=== PATIENT | female | born 1945 | race Caucasian/White ===

== ENCOUNTER 2018-01-20 19:24 | Inpatient (IN) | payer MEDICARE ==
[~2018-01-20] VITALS: Ht 170.2 cm; Wt 112.6 kg
[2018-01-20 21:15] LABS: BASO # 0.1 x10^3/uL (0.0-0.2); BASO % 1 % (0-3); EOS # 0.2 x10^3/uL (0.0-0.7); EOS % 2 % (0-3); HEMATOCRIT 47.6 % (36.0-47.0); LYMPH # 1.7 x10^3/uL (1.0-4.8); LYMPH % 12 % (24-48); MEAN CORPUSCULAR HEMOGLOBIN 30 pg (25-35); MEAN CORPUSCULAR HGB CONC 34 g/dL (31-37); MEAN CORPUSCULAR VOLUME 90 fL (79-100); MONO # 0.6 x10^3/uL (0.0-1.1); MONO % 5 % (0-9); NEUT # 11.9 x10^3uL (1.8-7.7); NEUT % 82 % (31-73); PLATELET COUNT 192 x10^3/uL (140-400); RED BLOOD COUNT 5.32 x10^6/uL (3.50-5.40); RED CELL DISTRIBUTION WIDTH 17.2 % (11.5-14.5); WHITE BLOOD COUNT 14.5 x10^3/uL (4.0-11.0)
[2018-01-20 21:26] LABS: ALBUMIN 2.2 g/dL (3.4-5.0); ALBUMIN/GLOBULIN RATIO 0.4 (1.0-1.7); BILIRUBIN,URINE NEG (NEG); CALCIUM 8.7 mg/dL (8.5-10.1); CLARITY,URINE CLOUDY; COLOR,URINE YELLOW; GFR 24.5; GLUCOSE,URINE NEG (NEG); MAGNESIUM 1.7 mg/dL (1.8-2.4); NITRITE,URINE NEG (NEG); POTASSIUM 3.3 mmol/L (3.5-5.1); TOTAL BILIRUBIN 0.5 mg/dL (0.2-1.0); TOTAL PROTEIN 7.8 g/dL (6.4-8.2); UROBILINOGEN,URINE 0.2 mg/dL (0.2 mg/dL)
[2018-01-20 21:27] LABS: BACTERIA,URINE MOD /HPF (0-FEW); RBC,URINE OCC /HPF (0-2); SQUAMOUS EPITHELIAL CELL,UR OCC /LPF; WBC,URINE >40 /HPF (0-4)
[2018-01-20] MEDS: HALOPERIDOL LACT 5 MG/ML VIAL. IVP PRN (23:29)
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
--- NOTE | 2018-01-20 23:30 | NUR ---
The patient, NEPTALI HOLLY, 72 y/o, F admitted by ASHLEY NEWSOME MD, was given written information regarding hospital policies, unit procedures and contact persons. Valuables were checked and .
[2018-01-20] MEDS: IV NORMAL SALINE 1,000ML 1,000 ML IV SCH (23:39)
[2018-01-20 23:52] VITALS: BP 131/85
[2018-01-21] MEDS ORDERED: CHOL10003 PO (01:53)
[2018-01-21] MEDS ORDERED: DEXT15DR5 EACHEYE (01:53)
[2018-01-21] MEDS ORDERED: INSU100I11 SQ (01:53)
[2018-01-21] MEDS ORDERED: WARF2.5T83 PO (01:53)
[2018-01-21] MEDS ORDERED: SPIR25TA5 PO (01:53)
[2018-01-21] MEDS ORDERED: TORS100T3 PO (01:53)
[2018-01-21] MEDS ORDERED: LEVO100T5 PO (01:53)
[2018-01-21] MEDS ORDERED: SIMV40TA3 PO (01:53)
[2018-01-21] MEDS ORDERED: POTA20TA4 PO (01:53)
[2018-01-21] MEDS ORDERED: DILT240C2 PO (01:53)
[2018-01-21] MEDS ORDERED: QUET25TA5 PO (01:53)
[2018-01-21] MEDS ORDERED: ACET500T68 PO (01:53)
[2018-01-21] MEDS ORDERED: METO50TA4 PO (01:53)
[2018-01-21] MEDS ORDERED: NYST15PO9 TP (01:53)
[2018-01-21] MEDS ORDERED: INSU100I13 SQ (01:53)
--- NOTE | 2018-01-21 03:10 | ED.ADGEN ---
Past History Past Medical History: COPD, Dementia, Depression, Diabetes, Hypertension Past Surgical History: Hysterectomy, Knee Replacement Alcohol Use: None Drug Use: None Adult General Chief Complaint Chief Complaint Patient for transfer medical screening evaluation for psychiatric admission HPI HPI Patient is a 72-year-old female with history of dementia and diabetes who presents with complaints of agitation and paranoia and disruptive behavior at residential facility. Patient has been admitted accepted by the on-call psychiatrist but stops in the emergency department for medical screening evaluation. History is limited as the patient is pearly cooperative. Of note, the patient was recently minute to [facility] for treatment of lower extremity cellulitis and has a PICC line in place. It is unclear when the antibiotics were stopped. History is limited due to patient's poor cooperation[] Review of Systems Review of Systems All other systems were reviewed and found to be within normal limits, except as documented in this note. Current Medications Current Medications Current Medications Medications (Trade) Dose Ordered Sig/Kelley Start Time Stop Time Status Last Admin Dose Admin Levofloxacin/ Dextrose 150 ml @ 150 mls/hr 1X ONCE 01/20/18 21:45 01/20/18 22:44 DC 01/20/18 21:45 150 MLS/HR Allergies Allergies Allergies Coded Allergies Type Severity Reaction Last Updated Verified Sulfa (Sulfonamide Antibiotics) Allergy Unknown 01/20/18 Yes amoxicillin Allergy Unknown 01/20/18 Yes vancomycin Allergy Unknown 01/20/18 Yes Physical Exam Physical Exam Constitutional: Well developed, well nourished, no acute distress, non-toxic appearance. [] HENT: Normocephalic, atraumatic, bilateral external ears normal, oropharynx moist, no oral exudates, nose normal. [] Eyes: PERRLA, EOMI, conjunctiva normal, no discharge. [] Neck: Normal range of motion, no tenderness, supple, no stridor. [] Cardiovascular:Heart rate regular rhythm, no murmur [] Lungs & Thorax: Bilateral breath sounds clear to auscultation [] Abdomen: Bowel sounds normal, soft, no tenderness. [] Skin: Warm, dry, no erythema, no rash. [] Back: No tenderness. [] Extremities: Venous insufficiency of lower extremities, with erythema, no induration, streaking, or weeping. [] Neurologic: Alert and oriented X1, normal motor function, normal sensory function, no focal deficits noted. [] Psychologic: Affect normal, judgement normal, mood normal. [] Current Patient Data Vital Signs Vital Signs Date Time Temp Pulse Resp B/P (MAP) Pulse Ox O2 Delivery O2 Flow Rate FiO2 01/20/18 21:37 98 18 160/80 (106) 94 Room Air 01/20/18 19:49 98.4 Lab Results Laboratory Tests Test 01/20/18 20:38 White Blood Count 14.5 x10^3/uL (4.0-11.0) H Red Blood Count 5.32 x10^6/uL (3.50-5.40) Hemoglobin 16.0 g/dL (12.0-15.5) H Hematocrit 47.6 % (36.0-47.0) H Mean Corpuscular Volume 90 fL (79-100) Mean Corpuscular Hemoglobin 30 pg (25-35) Mean Corpuscular Hemoglobin Concent 34 g/dL (31-37) Red Cell Distribution Width 17.2 % (11.5-14.5) H Platelet Count 192 x10^3/uL (140-400) Neutrophils (%) (Auto) 82 % (31-73) H Lymphocytes (%) (Auto) 12 % (24-48) L Monocytes (%) (Auto) 5 % (0-9) Eosinophils (%) (Auto) 2 % (0-3) Basophils (%) (Auto) 1 % (0-3) Neutrophils # (Auto) 11.9 x10^3uL (1.8-7.7) H Lymphocytes # (Auto) 1.7 x10^3/uL (1.0-4.8) Monocytes # (Auto) 0.6 x10^3/uL (0.0-1.1) Eosinophils # (Auto) 0.2 x10^3/uL (0.0-0.7) Basophils # (Auto) 0.1 x10^3/uL (0.0-0.2) Prothrombin Time 10.7 SEC (9.4-11.4) Prothrombin Time INR 1.1 (0.9-1.1) Urine Collection Type U cath Urine Color Yellow Urine Clarity Cloudy Urine pH 5.5 Urine Specific [place] 1.015 Urine Protein 100 mg/dl (NEG-TRACE) Urine Glucose (UA) Neg mg/dL (NEG) Urine Ketones (Stick) Neg mg/dL (NEG) Urine Blood Small (NEG) Urine Nitrite Neg (NEG) Urine Bilirubin Neg (NEG) Urine Urobilinogen Dipstick 0.2 mg/dL (0.2 mg/dL) Urine Leukocyte Esterase Mod (NEG) Urine RBC Occ /HPF (0-2) Urine WBC >40 /HPF (0-4) Urine Squamous Epithelial Cells Occ /LPF Urine Bacteria Mod /HPF (0-FEW) Urine Mucus Mod /LPF Sodium Level 136 mmol/L (136-145) Potassium Level 3.3 mmol/L (3.5-5.1) L Chloride Level 98 mmol/L (98-107) Carbon Dioxide Level 32 mmol/L (21-32) Anion Gap 6 (6-14) Blood Urea Nitrogen 39 mg/dL (7-20) H Creatinine 2.0 mg/dL (0.6-1.0) H Estimated GFR (Cockcroft-Gault) 24.5 BUN/Creatinine Ratio 20 (6-20) Glucose Level 133 mg/dL (70-99) H Calcium Level 8.7 mg/dL (8.5-10.1) Magnesium Level 1.7 mg/dL (1.8-2.4) L Total Bilirubin 0.5 mg/dL (0.2-1.0) Aspartate Amino Transferase (AST) 36 U/L (15-37) Alanine Aminotransferase (ALT) 33 U/L (14-59) Alkaline Phosphatase 101 U/L (46-116) Total Protein 7.8 g/dL (6.4-8.2) Albumin 2.2 g/dL (3.4-5.0) L Albumin/Globulin Ratio 0.4 (1.0-1.7) L EKG EKG [] Radiology/Procedures Radiology/Procedures [] Course & Med Decision Making Course & Med Decision Making Pertinent Labs and Imaging studies reviewed. (See chart for details) [Elevated WBC t with UTI and possible recurrence of lower extremity cellulitis. Will admit to medicla floor.] Final Impression Final Impression [1. cellulitis of B lower extremities 2. UTI] Dragon Disclaimer Dragon Disclaimer This electronic medical record was generated, in whole or in part, using a voice recognition dictation system. IGOR STOCKTON DO Jan 21, 2018 03:10
[2018-01-21] MEDS: HALOPERIDOL LACT 5 MG/ML VIAL. IVP PRN ×2 (03:39→14:06)
[2018-01-21 05:20] VITALS: BP 149/80
[2018-01-21 06:39] LABS: CALCIUM 8.3 mg/dL (8.5-10.1); CREATININE 1.8 mg/dL (0.6-1.0); GFR 27.7; POTASSIUM 3.1 mmol/L (3.5-5.1)
[2018-01-21 06:41] LABS: BASO # 0.1 x10^3/uL (0.0-0.2); BASO % 1 % (0-3); EOS # 0.1 x10^3/uL (0.0-0.7); EOS % 1 % (0-3); HEMATOCRIT 42.7 % (36.0-47.0); HEMOGLOBIN 14.5 g/dL (12.0-15.5); LYMPH # 1.2 x10^3/uL (1.0-4.8); LYMPH % 10 % (24-48); MEAN CORPUSCULAR HEMOGLOBIN 30 pg (25-35); MEAN CORPUSCULAR HGB CONC 34 g/dL (31-37); MEAN CORPUSCULAR VOLUME 89 fL (79-100); MONO # 0.6 x10^3/uL (0.0-1.1); MONO % 4 % (0-9); NEUT # 10.7 x10^3uL (1.8-7.7); NEUT % 84 % (31-73); PLATELET COUNT 165 x10^3/uL (140-400); RED BLOOD COUNT 4.79 x10^6/uL (3.50-5.40); RED CELL DISTRIBUTION WIDTH 17.5 % (11.5-14.5); WHITE BLOOD COUNT 12.8 x10^3/uL (4.0-11.0)
[2018-01-21] MEDS: LACTOBACILLUS RHAMNOSUS GG 1 CAPSULE. PO SCH ×2 (09:03→21:52)
[2018-01-21] MEDS: IV NORMAL SALINE 1,000ML 1,000 ML IV SCH ×2 (09:42→21:52)
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
[2018-01-21 10:14] VITALS: BP 120/65
[2018-01-21] MEDS ORDERED: POTASSIUM CHLORIDE 20 MEQ TABLET.ER. PO ONE (14:30)
[2018-01-21 15:07] VITALS: BP 137/83
--- NOTE | 2018-01-21 15:32 | NUR ---
Pt asking about her wheelchair. RN given in report from shift supervisor film processing that wheelchair was still in ED. Nursing o and m supervisor last night stated she would pass it along to day shift nursing o and m supervisor. RN called ER asking if they could bring the patients wheelchair up. ER stated they did not see it but would look. RN called day shift nursing o and m supervisor and asked if she had seen or gotten the wheelchair, she had not but did call nurse dairy cattle farm manager Alisa and is waiting for Alisa to call back.
--- NOTE | 2018-01-21 18:34 | SSS ---
ADMIT DATE: 01/21/2018 HISTORY OF PRESENT ILLNESS: The patient is a 72-year-old female patient, resident at [facility] who was seen in the Emergency Room as she has severe mood swings. She was cursing, yelling, very disruptive, threatening to kill multiple nurses, aggressive at times, especially resistive to care. She apparently was treated with Haldol and Seroquel without much improvement and was seen and evaluated in the Emergency Room with a plan for her to [facility]. However, there was some confusion as to whether she had a PICC line and there was confusion whether she was receiving treatment for cellulitis. I actually spoke with the nursing staff at [facility] and apparently she is known to have atrial fibrillation and she was on Lovenox as a bridge and the PICC line was used to draw blood daily for PT/INR. Actually, she is on Levaquin for urinary tract infection. When I questioned her, she denied any complaints and said that she feeling fine for her age. PAST MEDICAL HISTORY: Significant for atrial fibrillation, hyperlipidemia, hypertension, congestive heart failure, chronic kidney disease as well as type 2 diabetes and hypothyroidism. PAST SURGICAL HISTORY: Significant for left total knee arthroplasty. ALLERGIES: She is allergic to VANCOMYCIN, AMPICILLIN, AMOXICILLIN, AND SULFA DRUGS. MEDICATIONS: She is currently on following medications: She is on Coumadin 2.5 mg daily, simvastatin 40 mg at bedtime, metoprolol succinate 50 mg once a day. She is on diltiazem hydrochloride 240 mg daily, spironolactone 25 mg daily, Tylenol 1000 mg every 8 hours as needed, quetiapine fumarate 25 mg 3 times a day, potassium chloride 20 mEq daily, torsemide 50 mg daily, artificial tears 1 drop to both eyes twice a day. She is on Lantus insulin 23 units subcutaneously daily. She is also on Humalog insulin 3 units before meals, levothyroxine sodium 100 mcg daily, Nystatin powder topically 3 times a day to both areas under the breast, cholecalciferol 2000 units p.o. b.i.d. FAMILY HISTORY: Unremarkable. SOCIAL HISTORY: She is a resident at [facility]. She does not smoke, drink alcohol or use any recreational drugs. REVIEW OF SYSTEMS: As per history of present illness. PHYSICAL EXAMINATION GENERAL: When I examined her, she was sitting comfortably in her chair in no apparent respiratory distress. She seemed to be somewhat plethoric, but there is no jaundice, cyanosis, or thyromegaly. No jugular venous distension. No limb edema. VITAL SIGNS: Her heart rate was 107, blood pressure 120/65, temperature was 98.1, respiratory rate 20, and oxygen saturation was 92% on 2 liters of oxygen. HEAD, EYES, EAR, NOSE AND THROAT: Showed normocephalic, atraumatic. NECK: Supple. HEART: Showed normal first and second heart sounds with no gallop, rub or murmur. CHEST: Clear to auscultation. No crepitation or rhonchi. ABDOMEN: Distended, soft, nontender. No guarding or rigidity. No organomegaly. All hernial orifice intact. Bowel sounds normal. NEUROLOGIC: She was awake, alert, responding at times appropriately. Her cranial nerves are intact. She moves extremities without difficulty, although she is mostly with bedbound, chair bound. EXTREMITIES: Examination of her lower extremities showed that there is no clubbing or cyanosis with marked bilateral lower extremity lymphedema and chronic venous hypertension. LABORATORY DATA: On arrival to the Emergency Room, her CBC showed a white cell count of 14,500, hemoglobin 16, hematocrit 47, MCV 90 and platelet count of 192,000. Her prothrombin time was subtherapeutic with prothrombin time was 10.7, INR 1.1. Her chemistry showed a serum sodium 136, potassium 3.3, chloride 98, bicarbonate 32, anion gap of 6, BUN 39, creatinine 2, estimated GFR was 24 mL per minute. Her glucose was 133, calcium was 8.7, magnesium 1.7. Total bilirubin, AST, ALT, alkaline phosphatase were normal. Her total protein was 7.8, albumin was 2.2. Her TSH was 23.5. Her urinalysis showed the urine was yellow, cloudy with a pH of 5.5, specific gravity of 1.015. There was a small amount of protein, negative for glucose, ketones, small amount of blood. The urine was negative for nitrites, bilirubin, moderate amount of leukocyte esterase, more than 40 wbc's, moderate amount of bacteria. As the patient is hemodynamically stable. PLAN: My plan is to continue with her Lovenox 120 mg. I will increase her Coumadin to 5 mg. The patient will be transferred upstairs to [facility] to continue with these changes, I will obviously follow her there. FINAL DISCHARGE DIAGNOSES: Urinary tract infection for which she is on Levaquin. We will continue change that over to be given orally 750 mg every 48 hours. Continue with Lovenox 120 mg subcutaneous daily. I will increase Coumadin to 5 mg daily for the next 3 days and check her prothrombin time and INR on Wednesday morning. ASHLEY NEWSOME MD DR: MUNIR/janeth JOB#: [id number] / [id number]
--- NOTE | 2018-01-21 18:43 | PDOC ---
Exam Note: Diomedes Note: Please also refer to the separate dictated note~for this date of service dictated separately.~Patient seen individually. Discussed the patient with Nursing staff reviewed the chart.~Reviewed interim history and current functioning. Reviewed vital signs,~Labs/ Radiology~and current medications noted below. Continue current treatment with the changes noted in the dictated addendum note Assessment: Vital Signs: Vital Signs Date Time Temp Pulse Resp B/P (MAP) Pulse Ox O2 Delivery O2 Flow Rate FiO2 01/21/18 15:07 97.7 101 20 137/83 (101) 96 Room Air 01/21/18 10:14 2.0 I&O Intake and Output 01/21/18 07:00 Intake Total 400 ml Balance 400 ml Intake Oral 400 ml # Voids 4 Labs: Laboratory Tests Test 01/20/18 20:38 01/21/18 06:10 01/21/18 07:17 01/21/18 11:18 White Blood Count 14.5 x10^3/uL (4.0-11.0) H 12.8 x10^3/uL (4.0-11.0) H Red Blood Count 5.32 x10^6/uL (3.50-5.40) 4.79 x10^6/uL (3.50-5.40) Hemoglobin 16.0 g/dL (12.0-15.5) H 14.5 g/dL (12.0-15.5) Hematocrit 47.6 % (36.0-47.0) H 42.7 % (36.0-47.0) Mean Corpuscular Volume 90 fL (79-100) 89 fL (79-100) Mean Corpuscular Hemoglobin 30 pg (25-35) 30 pg (25-35) Mean Corpuscular Hemoglobin Concent 34 g/dL (31-37) 34 g/dL (31-37) Red Cell Distribution Width 17.2 % (11.5-14.5) H 17.5 % (11.5-14.5) H Platelet Count 192 x10^3/uL (140-400) 165 x10^3/uL (140-400) Neutrophils (%) (Auto) 82 % (31-73) H 84 % (31-73) H Lymphocytes (%) (Auto) 12 % (24-48) L 10 % (24-48) L Monocytes (%) (Auto) 5 % (0-9) 4 % (0-9) Eosinophils (%) (Auto) 2 % (0-3) 1 % (0-3) Basophils (%) (Auto) 1 % (0-3) 1 % (0-3) Neutrophils # (Auto) 11.9 x10^3uL (1.8-7.7) H 10.7 x10^3uL (1.8-7.7) H Lymphocytes # (Auto) 1.7 x10^3/uL (1.0-4.8) 1.2 x10^3/uL (1.0-4.8) Monocytes # (Auto) 0.6 x10^3/uL (0.0-1.1) 0.6 x10^3/uL (0.0-1.1) Eosinophils # (Auto) 0.2 x10^3/uL (0.0-0.7) 0.1 x10^3/uL (0.0-0.7) Basophils # (Auto) 0.1 x10^3/uL (0.0-0.2) 0.1 x10^3/uL (0.0-0.2) Prothrombin Time 10.7 SEC (9.4-11.4) Prothrombin Time INR 1.1 (0.9-1.1) Urine Collection Type U cath Urine Color Yellow Urine Clarity Cloudy Urine pH 5.5 Urine Specific [place] 1.015 Urine Protein 100 mg/dl (NEG-TRACE) Urine Glucose (UA) Neg mg/dL (NEG) Urine Ketones (Stick) Neg mg/dL (NEG) Urine Blood Small (NEG) Urine Nitrite Neg (NEG) Urine Bilirubin Neg (NEG) Urine Urobilinogen Dipstick 0.2 mg/dL (0.2 mg/dL) Urine Leukocyte Esterase Mod (NEG) Urine RBC Occ /HPF (0-2) Urine WBC >40 /HPF (0-4) Urine Squamous Epithelial Cells Occ /LPF Urine Bacteria Mod /HPF (0-FEW) Urine Mucus Mod /LPF Sodium Level 136 mmol/L (136-145) 138 mmol/L (136-145) Potassium Level 3.3 mmol/L (3.5-5.1) L 3.1 mmol/L (3.5-5.1) L Chloride Level 98 mmol/L (98-107) 101 mmol/L (98-107) Carbon Dioxide Level 32 mmol/L (21-32) 32 mmol/L (21-32) Anion Gap 6 (6-14) 5 (6-14) L Blood Urea Nitrogen 39 mg/dL (7-20) H 33 mg/dL (7-20) H Creatinine 2.0 mg/dL (0.6-1.0) H 1.8 mg/dL (0.6-1.0) H Estimated GFR (Cockcroft-Gault) 24.5 27.7 BUN/Creatinine Ratio 20 (6-20) Glucose Level 133 mg/dL (70-99) H 127 mg/dL (70-99) H Calcium Level 8.7 mg/dL (8.5-10.1) 8.3 mg/dL (8.5-10.1) L Magnesium Level 1.7 mg/dL (1.8-2.4) L Total Bilirubin 0.5 mg/dL (0.2-1.0) Aspartate Amino Transferase (AST) 36 U/L (15-37) Alanine Aminotransferase (ALT) 33 U/L (14-59) Alkaline Phosphatase 101 U/L (46-116) Total Protein 7.8 g/dL (6.4-8.2) Albumin 2.2 g/dL (3.4-5.0) L Albumin/Globulin Ratio 0.4 (1.0-1.7) L Thyroid Stimulating Hormone (TSH) 23.499 uIU/mL (0.358-3.740) Glucose (Fingerstick) 138 mg/dL (70-99) H 150 mg/dL (70-99) H Test 01/21/18 16:23 Glucose (Fingerstick) 125 mg/dL (70-99) H Current Medications: Meds: Current Medications Levofloxacin/ Dextrose 150 ml @ 150 mls/hr 1X ONCE IV Last administered on at 21:45; Start 01/20/18 at 21:45; Stop 01/20/18 at 22:44; Status DC Haloperidol Lactate (Haldol) 5 mg PRN Q4HRS PRN IVP AGITATION Last administered on 01/21/18at 14:06; Start 01/20/18 at 23:30 Sodium Chloride 1,000 ml @ 100 mls/hr Q10H IV Last administered on 01/21/18at 09:42; Start 01/20/18 at 23:30 Levofloxacin/ Dextrose 150 ml @ 150 mls/hr Q48H IV ; Start 01/22/18 at 22:00 Lactobacillus Rhamnosus (Culturelle) 1 cap BID PO Last administered on at 09:03; Start 01/21/18 at 09:00 Potassium Chloride (Klor-Con) 40 meq 1X ONCE PO Last administered on at 14:43; Start 01/21/18 at 14:30; Stop 01/21/18 at 14:31; Status DC Guaifenesin (Mucinex Er) 600 mg BID PO ; Start 01/21/18 at 21:00 Active Scripts Active Reported Coumadin (Warfarin Sodium) 2.5 Mg Tablet 2.5 Mg PO DAILY Vitamin D3 (Cholecalciferol (Vitamin D3)) 1,000 Unit Tablet 2,000 Unit PO BID Torsemide 100 Mg Tablet 0.5 Tab PO DAILY Spironolactone 25 Mg Tablet 25 Mg PO DAILY Simvastatin 40 Mg Tablet 40 Mg PO HS Seroquel (Quetiapine Fumarate) 25 Mg Tablet 25 Mg PO PRN TID PRN Klor-Con M20 (Potassium Chloride) 20 Meq Tab.er.prt 20 Meq PO DAILY Nystatin 15 Gm Powder 1 Manjeet TP TID APPLY UNDER EACH BREAST Toprol Xl (Metoprolol Succinate) 50 Mg Tab.er.24h 50 Mg PO DAILY Levothyroxine Sodium 100 Mcg Tablet 100 Mcg PO DAILYAC Lantus Solostar (Insulin Glargine,Hum.rec.anlog) 100 Unit/1 Ml Insuln.pen 23 Unit SQ DAILY Humalog (Insulin Lispro) 100 Unit/1 Ml Insuln.pen 3 Unit SQ TIDAC Cardizem Cd (Diltiazem Hcl) 240 Mg Cap.er.24h 240 Mg PO DAILY Artificial Tears Eye Drops (Dextran 70/Hypromellose) 15 Ml Drops 1 Drop EACHEYE BID Acetaminophen 500 Mg Tablet 1,000 Mg PO PRN Q8HRS PRN I have reviewed the current psychotropics carefully including drug interactions. Risk benefit ratio favors no change other than as noted in my dictated progress note. Diagnosis: Problems: (1) Psychotic depression (2) Impulse control disorder (3) Major depressive disorder, recurrent episode (4) Anxiety disorder (5) Urinary tract bacterial infections (6) Cellulitis of both lower extremities (7) Acute kidney failure JAZMINE KILLIAN MD Jan 21, 2018 18:43
[2018-01-21 19:00] VITALS: BP 126/82
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
[2018-01-21 23:00] VITALS: BP 144/83
[2018-01-22] MEDS: HALOPERIDOL LACT 5 MG/ML VIAL. IVP PRN (00:14)
[2018-01-22 05:49] VITALS: BP 133/78
[2018-01-22 11:11] VITALS: BP 156/80
[2018-01-22] MEDS: LACTOBACILLUS RHAMNOSUS GG 1 CAPSULE. PO SCH (12:32)
--- NOTE | 2018-01-22 12:57 | NUR ---
Pt is discharged up to [facility], PICC line in place, belongings with pt. Pt is apprehensive about transferring, states she doesn't know where she is going. GREEN MARKETING ANALYST at pt's side with transfer.
[2018-01-22] MEDS ORDERED: LEVO750T31 PO (15:28)
[2018-01-22] MEDS ORDERED: LACT1CAP21 PO (15:28)
[2018-01-22] MEDS ORDERED: ENOX120D SQ (15:28)
== END 2018-01-22 12:58 | DRG 871 ==
LOC: ER 19:24 → 1 SOUTH 22:00
PROVIDERS: ADMIT Internal Medicine; ATTEND Internal Medicine
DX: A41.9 Sepsis, unspecified organism (principal); E43 Unspecified severe protein-calorie malnutrition; N39.0 Urinary tract infection, site not specified; F33.9 Major depressive disorder, recurrent, unspecified; I13.0 Hypertensive heart and chronic kidney disease with heart failure and stage 1 through stage 4 chronic kidney disease, or unspecified chronic kidney disease; L03.116 Cellulitis of left lower limb; L03.115 Cellulitis of right lower limb; N17.9 Acute kidney failure, unspecified; E11.22 Type 2 diabetes mellitus with diabetic chronic kidney disease; E03.9 Hypothyroidism, unspecified; E78.5 Hyperlipidemia, unspecified; F03.90 Unspecified dementia, unspecified severity, without behavioral disturbance, psychotic disturbance, mood disturbance, and anxiety; F41.9 Anxiety disorder, unspecified; F63.9 Impulse disorder, unspecified; I50.9 Heart failure, unspecified; I48.91 Unspecified atrial fibrillation; J44.9 Chronic obstructive pulmonary disease, unspecified; N18.9 Chronic kidney disease, unspecified; Z96.652 Presence of left artificial knee joint; Z79.899 Other long term (current) drug therapy; Z90.710 Acquired absence of both cervix and uterus; Z88.1 Allergy status to other antibiotic agents; Z88.2 Allergy status to sulfonamides
CPT/HCPCS: 36415; 80048; 80053; 81001; 82947; 83735; 84443; 85025; 85610; 87086; 87186; 87641; J1630; J1956; 99285-25; J7030

== ENCOUNTER 2018-01-22 13:04 | Inpatient (IN) | payer MEDICARE ==
[~2018-01-22 13:04] MED LIST: ACET500T68 PO; CHOL10003 PO; DEXT15DR5 EACHEYE; DILT240C2 PO; INSU100I11 SQ; INSU100I13 SQ; LEVO100T5 PO; METO50TA4 PO; NYST15PO9 TP; POTA20TA4 PO; QUET25TA5 PO; SIMV40TA3 PO; SPIR25TA5 PO; TORS100T3 PO; WARF2.5T83 PO
[2018-01-22 13:30] VITALS: BP 132/77
[2018-01-22] MEDS ORDERED: MAGNESIUM HYDROXIDE 2,400 MG/30 ML ORAL.SUSP. PO PRN (15:00)
[2018-01-22] MEDS ORDERED: MAG HYDROX/AL HYDROX/SIMETH 30 ML ORAL.SUSP PO PRN (15:00)
[2018-01-22] MEDS ORDERED: ACETAMINOPHEN 325 MG TABLET PO PRN (15:00)
[2018-01-22] MEDS ORDERED: METHYL SALICYLATE/MENTHOL TOPICAL OINTMENT 29GM TUBE. TP PRN (15:00)
[2018-01-22] MEDS ORDERED: ENOX120D SQ (15:28)
[2018-01-22] MEDS ORDERED: LACT1CAP21 PO (15:28)
[2018-01-22] MEDS ORDERED: LEVO750T31 PO (15:28)
[2018-01-22] MEDS ORDERED: levoFLOXacin 750 MG TABLET PO SCH (15:45)
[2018-01-22] MEDS ORDERED: ACETAMINOPHEN 500 MG TABLET PO PRN (15:45)
[2018-01-22] MEDS ORDERED: QUEtiapine 25 MG TABLET. PO PRN (15:45)
[2018-01-22] MEDS ORDERED: WARFARIN 5 MG TABLET. PO SCH (16:00)
[2018-01-22 16:30] VITALS: BP 130/74
[2018-01-22] MEDS: INSULIN LISPRO 300 UNITS/3 ML INSULN.PEN. SQ SCH (17:26)
--- NOTE | 2018-01-22 18:55 | HP ---
ADMIT DATE: 01/22/2018 PSYCHIATRIC ADMISSION HISTORY/EVALUATION This note covers elements not covered in my initial note 01/22/2018. IDENTIFYING DATA: The patient is a 72-year-old female referred to us room 125, [address] [place] [address] Maya after she was stabilized overnight; referred initially from [facility] for threatening to kill herself and homicidal statements towards the other residents and staff members. The patient presented to the ER, found to have UTI, cellulitis, admitted to [address] [place] [address]. While in [address] [place] [address], she was extremely paranoid, delusional, believes she has been kidnapped, trying to rip out her PICC line and thus referred for inpatient psychiatric stabilization. CHIEF COMPLAINT: "I just say those things." HISTORY OF PRESENT ILLNESS: The patient reportedly had been living at home with her son and about 3 weeks back, he was unable to manage her because of her physical needs and she was admitted to [facility]. She has been extremely angry, irritable, depressed, and impulsive. She has had suicidal thoughts and statements and homicidal ideation statements towards the staff members and other patients/residence. No clear history of bipolar disorder. She does have some short-term memory deficits. PAST PSYCHIATRIC HISTORY: As above. PAST MEDICAL HISTORY: Diabetes mellitus, weakness, impaired ambulation in wheelchair, cellulitis, UTI, sepsis, acute kidney injury, PVD, atrial fibrillation, hypertension, bariatrics, hypothyroidism, CHF, hyperlipidemia, COPD, osteoarthritis, Accu-Cheks a.c. and at bedtime. PAST SURGICAL HISTORY: Hysterectomy, , bariatric surgery, left knee replacement. DIET: Regular. Medications whole. ALLERGIES: VANCOMYCIN, AMOXIL, SULFA. CODE STATUS: FULL CODE. CURRENT PSYCHOTROPICS: She is on p.r.n. Seroquel. FAMILY HISTORY: Noncontributory. SOCIAL HISTORY: No history of alcohol, drug abuse, physical, sexual or elder abuse. She is not known to be a perpetrator. REACTION TO HOSPITALIZATION: The patient accepting of it. ASSETS: Supportive son and stable living at the shelter. MENTAL STATUS EXAM: The patient was seen individually on the evening of 01/22/2018. She is oriented to herself, situation, aware of the year, who the president is and when she came here. She does have some short-term memory deficits. Attention span short. Language function intact. Mood is somewhat dysphoric, anxious. Denies active suicidal or homicidal ideation. Attention span short. Language function intact. LABORATORY DATA: Reviewed. IMPRESSION: Major depressive disorder, recurrent; anxiety disorder, unspecified; impulse control disorder, unspecified; mild cognitive impairment. Rest as above including urinary tract infection, cellulitis. PLAN: Admit to Geropsychiatry Unit at [facility]. I will see the patient daily individually from a psychiatric standpoint. Request Dr. Maya/Dr. Atkins to follow the patient from medical standpoint. For now, continue all her p.r.n. Seroquel, start Zoloft 25 mg a day. We will make further adjustments as clinically indicated. ESTIMATED LENGTH OF STAY: 7-10 days. DISPOSITION: Back to shelter once stable. MAN Otis KILLIAN MD DR: LYDIA/janeth JOB#: [id number] / [id number]
[2018-01-22] MEDS: ATORVASTATIN CALCIUM 20 MG TABLET PO SCH (20:25)
[2018-01-22] MEDS: CHOLECALCIFEROL (VITAMIN D3) 1,000 UNIT TABLET PO SCH (20:26)
[2018-01-22] MEDS: NYSTATIN TOPICAL POWDER 15GM BOTTLE. TP SCH (20:26)
[2018-01-22] MEDS: LACTOBACILLUS RHAMNOSUS GG 1 CAPSULE. PO SCH (20:26)
[2018-01-22] MEDS: POLYVINYL ALCOHOL 1.4% OPHTH SOLUTION 15ML BOTTLE. OU SCH (20:26)
--- NOTE | 2018-01-22 23:03 | PDOC ---
Exam Note: Diomedes Note: Please also refer to the separate dictated note~for this date of service dictated separately.~Patient seen individually. Discussed the patient with Nursing staff reviewed the chart.~Reviewed interim history and current functioning. Reviewed vital signs,~Labs/ Radiology~and current medications noted below. Continue current treatment with the changes noted in the dictated addendum note Assessment: Vital Signs: Vital Signs Date Time Temp Pulse Resp B/P (MAP) Pulse Ox O2 Delivery O2 Flow Rate FiO2 01/22/18 16:30 97.3 97 18 130/74 (92) 95 Labs: Laboratory Tests Test 01/22/18 17:15 01/22/18 19:11 Glucose (Fingerstick) 116 mg/dL (70-99) H 160 mg/dL (70-99) H Current Medications: Meds: Current Medications Acetaminophen (Tylenol) 650 mg PRN Q6HRS PRN PO PAIN / TEMP; Start 01/22/18 at 15:00 Multi-Ingredient Ointment (Analgesic [place]) 1 manjeet PRN QID PRN TP MUSCLE PAIN; Start 01/22/18 at 15:00 Al Hydroxide/Mg Hydroxide (Mylanta Plus Xs) 15 ml PRN AFTMEALHC PRN PO DYSPEPSIA; Start 01/22/18 at 15:00 Magnesium Hydroxide (Milk Of Magnesia) 2,400 mg PRN QHS PRN PO CONSTIPATION; Start 01/22/18 at 15:00 Nicotine (Nicoderm Cq 21mg) 1 patch DAILY TD ; Start 01/23/18 at 09:00 Vitamin D (Vitamin D3) 2,000 unit BID PO Last administered on 01/22/18at 20:26; Start 01/22/18 at 21:00 Diltiazem HCl (Cardizem 24hr Cd) 240 mg DAILY PO ; Start 01/23/18 at 09:00 Insulin Glargine (Lantus) 23 units DAILY SQ ; Start 01/23/18 at 09:00 Insulin Human Lispro (HumaLOG) 3 units TIDAC SQ Last administered on 01/22/18at 17:26; Start 01/22/18 at 16:30 Nystatin (Nystop) 1 manjeet TID TP Last administered on 01/22/18at 20:26; Start at 21:00 Potassium Chloride (Klor-Con) 20 meq DAILY PO ; Start 01/23/18 at 09:00 Atorvastatin Calcium (Lipitor) 20 mg QHS PO Last administered on 01/22/18at 20: 25; Start 01/22/18 at 21:00 Warfarin Sodium (Coumadin) 5 mg DAILY16 PO Last administered on 01/22/18at 17:23 ; Start 01/22/18 at 16:00 Acetaminophen (Tylenol) 1,000 mg PRN Q8HRS PRN PO PAIN / TEMP; Start 01/22/18 at 15:45 Artificial Tears (Artificial Tears) 1 drop BID OU ; Start 01/22/18 at 21:00 Enoxaparin Sodium (Lovenox 40mg Syringe) 40 mg DAILY SQ ; Start 01/23/18 at 09: 00 Lactobacillus Rhamnosus (Culturelle) 1 cap BID PO Last administered on at 20:26; Start 01/22/18 at 21:00 Levofloxacin (Levaquin) 750 mg QODAY PO Last administered on 01/22/18at 17:23; Start 01/22/18 at 15:45 Metoprolol Succinate (Toprol Xl) 50 mg DAILY PO ; Start 01/23/18 at 09:00 Spironolactone (Aldactone) 25 mg DAILY PO ; Start 01/23/18 at 09:00 Torsemide (Demadex) 50 mg DAILY PO ; Start 01/23/18 at 09:00 Levothyroxine Sodium (Synthroid) 100 mcg DAILY06 PO ; Start 01/23/18 at 06:00 Quetiapine Fumarate (SEROquel) 25 mg PRN TID PRN PO AGITATION; Start 01/22/18 at 15:45 Sertraline HCl (Zoloft) 25 mg DAILY PO ; Start 01/23/18 at 09:00 Active Scripts Active Reported Levaquin (Levofloxacin) 750 Mg Tablet 1 Tab PO EVERY 48 HOURS 4 Days Lovenox (Enoxaparin Sodium) 120 Mg/0.8 Ml Disp.syrin 120 Mg SQ DAILY Culturelle (Lactobacillus Rhamnosus Gg) 1 Each Capsule 1 Each PO BID Coumadin (Warfarin Sodium) 2.5 Mg Tablet 5 Mg PO DAILY Vitamin D3 (Cholecalciferol (Vitamin D3)) 1,000 Unit Tablet 2,000 Unit PO BID Torsemide 100 Mg Tablet 0.5 Tab PO DAILY Spironolactone 25 Mg Tablet 25 Mg PO DAILY Simvastatin 40 Mg Tablet 40 Mg PO HS Seroquel (Quetiapine Fumarate) 25 Mg Tablet 25 Mg PO PRN TID PRN Klor-Con M20 (Potassium Chloride) 20 Meq Tab.er.prt 20 Meq PO DAILY Nystatin 15 Gm Powder 1 Manjeet TP TID APPLY UNDER EACH BREAST Toprol Xl (Metoprolol Succinate) 50 Mg Tab.er.24h 50 Mg PO DAILY Levothyroxine Sodium 100 Mcg Tablet 100 Mcg PO DAILY06 Lantus Solostar (Insulin Glargine,Hum.rec.anlog) 100 Unit/1 Ml Insuln.pen 23 Unit SQ DAILY Humalog (Insulin Lispro) 100 Unit/1 Ml Insuln.pen 3 Unit SQ TIDAC Cardizem Cd (Diltiazem Hcl) 240 Mg Cap.er.24h 240 Mg PO DAILY Artificial Tears Eye Drops (Dextran 70/Hypromellose) 15 Ml Drops 1 Drop EACHEYE BID Acetaminophen 500 Mg Tablet 1,000 Mg PO PRN Q8HRS PRN I have reviewed the current psychotropics carefully including drug interactions. Risk benefit ratio favors no change other than as noted in my dictated progress note. Diagnosis: Problems: (1) Atrial fibrillation (2) Anxiety disorder (3) Major depressive disorder, recurrent episode (4) Impulse control disorder (5) Psychotic depression JAZMINE KILLIAN MD Jan 22, 2018 23:03
--- NOTE | 2018-01-23 02:08 | CONS ---
DATE OF CONSULTATION: 01/22/2018 PSYCHIATRIC CONSULTATION This is late entry 01/21, covers elements not covered in my initial note. IDENTIFYING DATA: The patient is a 72-year-old female who is seen in room [facility], for a psychiatric consult requested by Dr. Maya after the patient was admitted from the [facility], making suicidal statements and threats to hurt others than the [facility]. She presented to the ER, was found to have cellulitis and the UTI and admitted to [address] [place] [address]. I have been asked to consult from a psychiatric standpoint and she continues to be extremely labile, paranoid. The patient has been calling multitude of friends telling them, she has been taken hostage. She has been calling her son telling him the same and son is her DPOA, who arranged the initial hospitalization. She has been trying to pull out her PICC line. CHIEF COMPLAINT: "I just said those things. I would not do anything." HISTORY OF PRESENT ILLNESS: Reportedly, the patient has been at the [facility], just for a few weeks. Prior to that, she was living at home with her son. Over the last several days, she is increasingly psychotic, paranoid, agitated, threatening to hurt herself and expressing homicidal ideation. She was consequently referred for the inpatient psychiatric stabilization and then to [address] [place] [address]. No clear history of bipolar disorder. She does admit to being increasingly depressed as well, but some short-term memory deficits. PAST PSYCHIATRIC HISTORY: As above. MEDICAL HISTORY: Cellulitis, diabetes mellitus, hypertension, COPD. PAST SURGICAL HISTORY: Hysterectomy, knee replacement. No alcohol or drug abuse history. ALLERGIES: SULFA, AMOXIL, VANCOMYCIN. CURRENT PSYCHOTROPICS: EMRAD was reviewed. FAMILY HISTORY: Noncontributory. SOCIAL HISTORY: No alcohol or drug abuse history is noted. MENTAL STATUS EXAMINATION: The patient was seen individually evening of 01/21/2018. She was oriented to herself, situation and the time and date, though she was confused on the year at one time, when I questioned her. Speech is coherent, somewhat rapid at times. Abstraction fair, computation impaired, language function intact. Attention span short. No active suicidal or homicidal ideation. IMPRESSION: Major depressive disorder; impulse control disorder; anxiety disorder, unspecified; mild cognitive impairment. Rest as above. RECOMMENDATION FROM A PSYCHIATRIC STANDPOINT: We would not recommend anything differently at this time. Once she is medically stabilized, we will reassess her for coming [facility] if she still meets criteria. Dr. Maya, thank you for the opportunity to participate in your patient's care. We will follow with you. JAZMINE KILLIAN MD DR: LYDIA/janeth JOB#: [id number] / [id number]
[2018-01-23] MEDS ORDERED: LEVOTHYROXINE 100 MCG TABLET PO SCH (06:00)
[2018-01-23 06:24] VITALS: BP 159/89
--- NOTE | 2018-01-23 08:10 | RAD ---
AP and lateral chest. HISTORY: Short of air, weakness, cough AP and lateral views were taken of the chest. There is a left arm PICC line which is in the proximal superior vena cava. The heart is mildly enlarged. There is no definite effusion. There is interstitial lung disease from vascular congestion and edema or an interstitial infiltrate. Correlation with post an old study could be of benefit. IMPRESSION: 1. Mild cardiac enlargement with vascular congestion and mild interstitial infiltrates or edema. Electronically signed by: Kedar Olvera MD (01/23/2018 8:06 AM) [facility]
[2018-01-23] MEDS: CHOLECALCIFEROL (VITAMIN D3) 1,000 UNIT TABLET PO SCH ×2 (08:12→20:18)
[2018-01-23] MEDS: LACTOBACILLUS RHAMNOSUS GG 1 CAPSULE. PO SCH ×2 (08:12→20:18)
[2018-01-23] MEDS: NICOTINE 21MG PATCH. TD SCH ×2 (08:13→09:00)
[2018-01-23] MEDS ORDERED: METOPROLOL SUCC 24HR ER 50 MG TAB.ER.24H. PO SCH (09:00)
[2018-01-23] MEDS: POLYVINYL ALCOHOL 1.4% OPHTH SOLUTION 15ML BOTTLE. OU SCH ×2 (09:00→20:19)
[2018-01-23] MEDS ORDERED: POTASSIUM CHLORIDE 20 MEQ TABLET.ER. PO SCH (09:00)
[2018-01-23] MEDS ORDERED: INSULIN GLARGINE 300 UNITS/3 ML INSULN.PEN. SQ SCH (09:00)
[2018-01-23] MEDS ORDERED: TORSEMIDE 20 MG TABLET. PO SCH (09:00)
[2018-01-23] MEDS ORDERED: ENOXAPARIN 40 MG/0.4 ML SYRINGE. SQ SCH (09:00)
[2018-01-23] MEDS ORDERED: SPIRONOLACTONE 25 MG TABLET PO SCH (09:00)
[2018-01-23] MEDS ORDERED: SERTRALINE 25 MG TABLET. PO SCH (09:00)
[2018-01-23] MEDS: INSULIN LISPRO 300 UNITS/3 ML INSULN.PEN. SQ SCH ×3 (09:26→18:37)
[2018-01-23] MEDS: NYSTATIN TOPICAL POWDER 15GM BOTTLE. TP SCH ×3 (09:27→21:40)
[2018-01-23] MEDS ORDERED: ALTEPLASE 2 MG VIAL INT CAT ONE ×3 (12:15)
[2018-01-23 12:33] LABS: BASO # 0.1 x10^3/uL (0.0-0.2); BASO % 1 % (0-3); EOS # 0.3 x10^3/uL (0.0-0.7); EOS % 3 % (0-3); HEMATOCRIT 48.4 % (36.0-47.0); LYMPH # 1.3 x10^3/uL (1.0-4.8); LYMPH % 10 % (24-48); MEAN CORPUSCULAR HEMOGLOBIN 30 pg (25-35); MEAN CORPUSCULAR HGB CONC 33 g/dL (31-37); MEAN CORPUSCULAR VOLUME 91 fL (79-100); MONO # 0.5 x10^3/uL (0.0-1.1); MONO % 4 % (0-9); NEUT % 82 % (31-73); PLATELET COUNT 199 x10^3/uL (140-400); RED CELL DISTRIBUTION WIDTH 18.3 % (11.5-14.5); WHITE BLOOD COUNT 12.2 x10^3/uL (4.0-11.0)
[2018-01-23 12:44] LABS: ALBUMIN 2.3 g/dL (3.4-5.0); ALBUMIN/GLOBULIN RATIO 0.4 (1.0-1.7); CALCIUM 8.7 mg/dL (8.5-10.1); CREATININE 1.7 mg/dL (0.6-1.0); GFR 29.5; MAGNESIUM 1.6 mg/dL (1.8-2.4); POTASSIUM 3.9 mmol/L (3.5-5.1); TOTAL BILIRUBIN 0.4 mg/dL (0.2-1.0); TOTAL PROTEIN 7.9 g/dL (6.4-8.2)
[2018-01-23 16:14] LABS: THYROID STIM HORMONE (TSH) 33.93 uIU/mL (0.358-3.740)
[2018-01-23 16:38] VITALS: BP 122/78
[2018-01-23] MEDS ORDERED: TORSEMIDE 20 MG TABLET. PO ONE (17:45)
--- NOTE | 2018-01-23 18:18 | CONS ---
DATE OF CONSULTATION: REASON FOR CONSULTATION: Medical management. HISTORY OF PRESENT ILLNESS: The patient is a 72-year-old female patient, resident at [facility], who was seen in the Emergency Room as she has severe mood swings. She was cursing, yelling, very disruptive, threatening to kill multiple nurses, aggressive at times, especially resistive to care. She apparently was treated with Haldol and Seroquel without much improvement and therefore, she was sent to be evaluated in the Emergency Room for medical clearance before she was admitted to [facility] for inpatient psychiatric stabilization. However, while at the Emergency Room, she was diagnosed with urinary tract infection and transpired that her PICC line was kept there to use to withdraw blood as she is on Coumadin and overlapping Lovenox for her atrial fibrillation. She was treated with Levaquin for urinary tract infection and once stabilized, she was admitted to [facility] for inpatient psychiatric stabilization. Apparently, she was calling multitude friends while at the [facility] telling them that she has been taken hostage, calling son and telling him that the same claiming that the staff has kidnapped her and attempting to pull out off her PICC line. PAST MEDICAL HISTORY: Significant for atrial fibrillation, hyperlipidemia, hypertension, congestive heart failure, chronic kidney disease as well as type 2 diabetes and hypothyroidism. PAST SURGICAL HISTORY: Significant for left total knee arthroplasty. ALLERGIES: She is allergic to vancomycin, ampicillin, amoxicillin, and sulfa drugs. FAMILY HISTORY: Unremarkable. SOCIAL HISTORY: She is a resident at [facility]. She does not smoke, drink alcohol or use any recreational drugs. REVIEW OF SYSTEMS: As per history of present illness. MEDICATIONS: She is currently on following medications: She is on levofloxacin 750 mg every 48 hours. She is on Lovenox 120 mg subcutaneously once a day, warfarin 5 mg daily, simvastatin 40 mg at bedtime, metoprolol succinate 50 mg once a day, diltiazem extended release 240 mg once a day, spironolactone 25 mg once a day, Tylenol 1000 mg every 8 hours, quetiapine fumarate 25 mg 3 times a day, potassium chloride 20 mEq once a day, furosemide 100 mg half a tablet once a day, artificial tears eye drops 1 drop to both eyes twice a day, lactobacillus rhamnosus 1 twice a day. She is on Lantus insulin 23 units at bedtime and Lispro, Humalog insulin 3 units before meals 3 times a day. She is on levothyroxine sodium 100 mcg once a day and nystatin powder apply topically 3 times a day and cholecalciferol, vitamin D3 is 2000 units twice a day. PHYSICAL EXAMINATION: GENERAL: When I examined her, she looked well and was clearly in no apparent respiratory distress. No pallor, jaundice, cyanosis, or thyromegaly. No jugular venous distension. No lower limb edema. VITAL SIGNS: Her heart rate was 77, blood pressure was 159/89, temperature was 98.9, respiratory rate was 24, and oxygen saturation was 95% on 3 liters of oxygen. HEAD, EYES, EARS, NOSE, and THROAT: Showed normocephalic, atraumatic. NECK: Supple. HEART: Showed normal first and second heart sounds. No gallop, rub or murmur. CHEST: Clear to auscultation. No crepitation or rhonchi. ABDOMEN: Distended, soft, and nontender. NEUROLOGIC: She is awake, alert, somewhat confused. All cranial nerves are intact. EXTREMITIES: She moves extremities without difficulty. She is mostly bedbound, chair bound. LABORATORY DATA: Her most recent lab work showed a white cell count 12,200, hemoglobin 16, hematocrit 48, MCV 91, and platelet count of 199,000. Her chemistry showed a serum sodium of 136, potassium 3.9, chloride 101, bicarbonate 31, anion gap of 4, BUN 21, creatinine 1.7, and estimated GFR was 30 mL per minute. Her glucose was 101, calcium was 8.7, magnesium was 1.6. Total bilirubin, AST, ALT, and alkaline phosphatase were normal. Her total protein was 7.9, albumin was 2.3. Her serum triglycerides were 159, total cholesterol was 192, LDL was 116, VLDL was 31, HDL cholesterol was 45 and the ratio was 4.5. Her TSH was high at 33.9. Her serum iron was 47, TIBC was 274 and percent saturation was 17%. ASSESSMENT AND PLAN: In summary, this is a 72-year-old female patient, who basically was medically stabilized at [address] [place] [address], she was continued on Lovenox and Coumadin as well as Levaquin 750 mg every 48 hours for her urinary tract infection. She is here on account of calling multitude of her friends, telling them that she has been taken as hostage, calling her son and telling him the same, claiming that the staff has kidnapped her and attempting to pull her PICC line. Plan is to continue with Lovenox and adjust Coumadin to maintain INR between 2 and 2.5. Once the INR is 2 or more than 2, discontinue the Lovenox altogether. Thank you, Dr. Miramontes for allowing me to participate in the care of this patient. ASHLEY NEWSOME MD DR: MUNIR/janeth JOB#: [id number] / [id number]
[2018-01-23] MEDS ORDERED: POTASSIUM CHLORIDE 20 MEQ TABLET.ER. PO ONE (20:00)
[2018-01-23] MEDS: ATORVASTATIN CALCIUM 20 MG TABLET PO SCH (20:18)
[2018-01-23] MEDS ORDERED: ENOXAPARIN ** NOTE DOSE ** SYRINGE SQ SCH (21:00)
--- NOTE | 2018-01-23 21:05 | PDOC ---
Exam Note: Diomedes Note: Please also refer to the separate dictated note~for this date of service dictated separately.~Patient seen individually. Discussed the patient with Nursing staff reviewed the chart.~Reviewed interim history and current functioning. Reviewed vital signs,~Labs/ Radiology~and current medications noted below. Continue current treatment with the changes noted in the dictated addendum note Assessment: Vital Signs: Vital Signs Date Time Temp Pulse Resp B/P (MAP) Pulse Ox O2 Delivery O2 Flow Rate FiO2 01/23/18 16:38 97.3 71 24 122/78 (93) 94 01/23/18 06:24 Nasal Cannula 3.0 I&O Intake and Output 01/23/18 07:00 Intake Total 120 ml Balance 120 ml Intake Oral 120 ml Labs: Laboratory Tests Test 01/23/18 07:38 01/23/18 12:22 01/23/18 12:42 01/23/18 16:38 Glucose (Fingerstick) 133 mg/dL (70-99) H 114 mg/dL (70-99) H 122 mg/dL (70-99) H White Blood Count 12.2 x10^3/uL (4.0-11.0) H Red Blood Count 5.30 x10^6/uL (3.50-5.40) Hemoglobin 16.0 g/dL (12.0-15.5) H Hematocrit 48.4 % (36.0-47.0) H Mean Corpuscular Volume 91 fL (79-100) Mean Corpuscular Hemoglobin 30 pg (25-35) Mean Corpuscular Hemoglobin Concent 33 g/dL (31-37) Red Cell Distribution Width 18.3 % (11.5-14.5) H Platelet Count 199 x10^3/uL (140-400) Neutrophils (%) (Auto) 82 % (31-73) H Lymphocytes (%) (Auto) 10 % (24-48) L Monocytes (%) (Auto) 4 % (0-9) Eosinophils (%) (Auto) 3 % (0-3) Basophils (%) (Auto) 1 % (0-3) Neutrophils # (Auto) 10.0 x10^3uL (1.8-7.7) H Lymphocytes # (Auto) 1.3 x10^3/uL (1.0-4.8) Monocytes # (Auto) 0.5 x10^3/uL (0.0-1.1) Eosinophils # (Auto) 0.3 x10^3/uL (0.0-0.7) Basophils # (Auto) 0.1 x10^3/uL (0.0-0.2) Sodium Level 136 mmol/L (136-145) Potassium Level 3.9 mmol/L (3.5-5.1) Chloride Level 101 mmol/L (98-107) Carbon Dioxide Level 31 mmol/L (21-32) Anion Gap 4 (6-14) L Blood Urea Nitrogen 21 mg/dL (7-20) H Creatinine 1.7 mg/dL (0.6-1.0) H Estimated GFR (Cockcroft-Gault) 29.5 BUN/Creatinine Ratio 12 (6-20) Glucose Level 101 mg/dL (70-99) H Calcium Level 8.7 mg/dL (8.5-10.1) Magnesium Level 1.6 mg/dL (1.8-2.4) L Iron Level 47 ug/dL (50-170) L Total Iron Binding Capacity 274 ug/dL (250-450) Iron Saturation 17 % (15-34) Total Bilirubin 0.4 mg/dL (0.2-1.0) Aspartate Amino Transferase (AST) 29 U/L (15-37) Alanine Aminotransferase (ALT) 31 U/L (14-59) Alkaline Phosphatase 79 U/L (46-116) Total Protein 7.9 g/dL (6.4-8.2) Albumin 2.3 g/dL (3.4-5.0) L Albumin/Globulin Ratio 0.4 (1.0-1.7) L Triglycerides Level 159 mg/dL (0-150) H Cholesterol Level 192 mg/dL (0-200) LDL Cholesterol, Calculated 116 mg/dL (0-100) H VLDL Cholesterol, Calculated 31 mg/dL (0-40) Non-HDL Cholesterol Calculated 147 mg/dL (0-129) H HDL Cholesterol 45 mg/dL (40-60) Cholesterol/HDL Ratio 4.0 Thyroid Stimulating Hormone (TSH) 33.930 uIU/mL (0.358-3.740) Test 01/23/18 19:17 Glucose (Fingerstick) 141 mg/dL (70-99) H Current Medications: Meds: Current Medications Acetaminophen (Tylenol) 650 mg PRN Q6HRS PRN PO PAIN / TEMP; Start 01/22/18 at 15:00 Multi-Ingredient Ointment (Analgesic [place]) 1 manjeet PRN QID PRN TP MUSCLE PAIN; Start 01/22/18 at 15:00 Al Hydroxide/Mg Hydroxide (Mylanta Plus Xs) 15 ml PRN AFTMEALHC PRN PO DYSPEPSIA; Start 01/22/18 at 15:00 Magnesium Hydroxide (Milk Of Magnesia) 2,400 mg PRN QHS PRN PO CONSTIPATION; Start 01/22/18 at 15:00 Nicotine (Nicoderm Cq 21mg) 1 patch DAILY TD ; Start 01/23/18 at 09:00 Vitamin D (Vitamin D3) 2,000 unit BID PO Last administered on 01/23/18at 20:18; Start 01/22/18 at 21:00 Diltiazem HCl (Cardizem 24hr Cd) 240 mg DAILY PO Last administered on at 08:12; Start 01/23/18 at 09:00 Insulin Glargine (Lantus) 23 units DAILY SQ Last administered on 01/23/18at 09: 25; Start 01/23/18 at 09:00 Insulin Human Lispro (HumaLOG) 3 units TIDAC SQ Last administered on 01/23/18at 18:37; Start 01/22/18 at 16:30 Nystatin (Nystop) 1 manjeet TID TP Last administered on 01/23/18at 13:45; Start at 21:00 Potassium Chloride (Klor-Con) 20 meq DAILY PO Last administered on 01/23/18at 08 :12; Start 01/23/18 at 09:00 Atorvastatin Calcium (Lipitor) 20 mg QHS PO Last administered on 01/23/18at 20: 18; Start 01/22/18 at 21:00 Warfarin Sodium (Coumadin) 5 mg DAILY16 PO Last administered on 01/22/18at 17:23 ; Start 01/22/18 at 16:00; Stop 01/23/18 at 16:50; Status DC Acetaminophen (Tylenol) 1,000 mg PRN Q8HRS PRN PO PAIN / TEMP Last administered on 01/23/18at 06:46; Start 01/22/18 at 15:45 Artificial Tears (Artificial Tears) 1 drop BID OU Last administered on at 20:19; Start 01/22/18 at 21:00 Enoxaparin Sodium (Lovenox 40mg Syringe) 40 mg DAILY SQ Last administered on at 08:13; Start 01/23/18 at 09:00; Stop 01/23/18 at 17:33; Status DC Lactobacillus Rhamnosus (Culturelle) 1 cap BID PO Last administered on at 20:18; Start 01/22/18 at 21:00 Levofloxacin (Levaquin) 750 mg QODAY PO Last administered on 01/22/18at 17:23; Start 01/22/18 at 15:45 Metoprolol Succinate (Toprol Xl) 50 mg DAILY PO Last administered on 01/23/18at 08:12; Start 01/23/18 at 09:00 Spironolactone (Aldactone) 25 mg DAILY PO Last administered on 01/23/18at 08:12 ; Start 01/23/18 at 09:00 Torsemide (Demadex) 50 mg DAILY PO Last administered on 01/23/18at 08:24; Start 01/23/18 at 09:00 Levothyroxine Sodium (Synthroid) 100 mcg DAILY06 PO Last administered on at 06:11; Start 01/23/18 at 06:00 Quetiapine Fumarate (SEROquel) 25 mg PRN TID PRN PO AGITATION; Start 01/22/18 at 15:45 Sertraline HCl (Zoloft) 25 mg DAILY PO Last administered on 01/23/18at 08:12; Start 01/23/18 at 09:00 Alteplase, Recombinant (Cathflo) 2 mg 1X ONCE INT CAT Last administered on at 12:15; Start 01/23/18 at 12:15; Stop 01/23/18 at 12:17; Status DC Alteplase, Recombinant (Cathflo) 2 mg 1X ONCE INT CAT Last administered on at 12:15; Start 01/23/18 at 12:15; Stop 01/23/18 at 12:17; Status DC Alteplase, Recombinant (Cathflo) 2 mg 1X ONCE INT CAT Last administered on at 14:09; Start 01/23/18 at 12:15; Stop 01/23/18 at 12:17; Status DC Warfarin Sodium (Coumadin) 10 mg DAILY16 PO ; Start 01/24/18 at 16:00; Stop at 16:00; Status DC Warfarin Sodium (Coumadin) 5 mg DAILY16 PO ; Start 01/24/18 at 16:00 Enoxaparin Sodium (Lovenox 120mg Syringe) 120 mg Q12HR SQ Last administered on 01/23/18at 20:20; Start 01/23/18 at 21:00 Torsemide (Demadex) 50 mg 1X ONCE PO Last administered on 01/23/18at 18:36; Start 01/23/18 at 17:45; Stop 01/23/18 at 17:46; Status DC Potassium Chloride (Klor-Con) 20 meq 1X ONCE PO Last administered on at 18:36; Start 01/23/18 at 20:00; Stop 01/23/18 at 20:01; Status DC Active Scripts Active Reported Levaquin (Levofloxacin) 750 Mg Tablet 1 Tab PO EVERY 48 HOURS 4 Days Lovenox (Enoxaparin Sodium) 120 Mg/0.8 Ml Disp.syrin 120 Mg SQ DAILY Culturelle (Lactobacillus Rhamnosus Gg) 1 Each Capsule 1 Each PO BID Coumadin (Warfarin Sodium) 2.5 Mg Tablet 5 Mg PO DAILY Vitamin D3 (Cholecalciferol (Vitamin D3)) 1,000 Unit Tablet 2,000 Unit PO BID Torsemide 100 Mg Tablet 0.5 Tab PO DAILY Spironolactone 25 Mg Tablet 25 Mg PO DAILY Simvastatin 40 Mg Tablet 40 Mg PO HS Seroquel (Quetiapine Fumarate) 25 Mg Tablet 25 Mg PO PRN TID PRN Klor-Con M20 (Potassium Chloride) 20 Meq Tab.er.prt 20 Meq PO DAILY Nystatin 15 Gm Powder 1 Manjeet TP TID APPLY UNDER EACH BREAST Toprol Xl (Metoprolol Succinate) 50 Mg Tab.er.24h 50 Mg PO DAILY Levothyroxine Sodium 100 Mcg Tablet 100 Mcg PO DAILY06 Lantus Solostar (Insulin Glargine,Hum.rec.anlog) 100 Unit/1 Ml Insuln.pen 23 Unit SQ DAILY Humalog (Insulin Lispro) 100 Unit/1 Ml Insuln.pen 3 Unit SQ TIDAC Cardizem Cd (Diltiazem Hcl) 240 Mg Cap.er.24h 240 Mg PO DAILY Artificial Tears Eye Drops (Dextran 70/Hypromellose) 15 Ml Drops 1 Drop EACHEYE BID Acetaminophen 500 Mg Tablet 1,000 Mg PO PRN Q8HRS PRN I have reviewed the current psychotropics carefully including drug interactions. Risk benefit ratio favors no change other than as noted in my dictated progress note. Diagnosis: Problems: (1) Atrial fibrillation (2) Anxiety disorder (3) Major depressive disorder, recurrent episode (4) Impulse control disorder (5) Psychotic depression JAZMINE KILLIAN MD Jan 23, 2018 21:05
[2018-01-24] MEDS ORDERED: ACET325T9 PO (01:15)
[2018-01-24] MEDS ORDERED: MAG355OR17 PO (01:16)
[2018-01-24] MEDS ORDERED: MAGN2400 PO (01:16)
[2018-01-24] MEDS ORDERED: METH29OI TP (01:17)
[2018-01-24] MEDS ORDERED: NICO1PAT21 TD (01:17)
[2018-01-24] MEDS ORDERED: SERT25TA PO (01:18)
[2018-01-24 01:36] LABS: BGAS PH 7.33 (7.35-7.45)
[2018-01-24 01:39] LABS: BASO # 0.1 x10^3/uL (0.0-0.2); BASO % 1 % (0-3); EOS # 0.3 x10^3/uL (0.0-0.7); EOS % 3 % (0-3); HEMATOCRIT 44.5 % (36.0-47.0); HEMOGLOBIN 14.8 g/dL (12.0-15.5); LYMPH # 1.3 x10^3/uL (1.0-4.8); LYMPH % 10 % (24-48); MEAN CORPUSCULAR HEMOGLOBIN 30 pg (25-35); MEAN CORPUSCULAR HGB CONC 33 g/dL (31-37); MEAN CORPUSCULAR VOLUME 91 fL (79-100); MONO # 0.7 x10^3/uL (0.0-1.1); MONO % 5 % (0-9); NEUT # 10.8 x10^3uL (1.8-7.7); NEUT % 82 % (31-73); PLATELET COUNT 181 x10^3/uL (140-400); RED BLOOD COUNT 4.89 x10^6/uL (3.50-5.40); RED CELL DISTRIBUTION WIDTH 18.7 % (11.5-14.5); WHITE BLOOD COUNT 13.2 x10^3/uL (4.0-11.0)
[2018-01-24 01:58] LABS: ALBUMIN 2.2 g/dL (3.4-5.0); ALBUMIN/GLOBULIN RATIO 0.4 (1.0-1.7); CALCIUM 8.6 mg/dL (8.5-10.1); CREATININE 1.7 mg/dL (0.6-1.0); GFR 29.5; TOTAL BILIRUBIN 0.3 mg/dL (0.2-1.0); TOTAL PROTEIN 7.3 g/dL (6.4-8.2)
[2018-01-24 02:04] LABS: POTASSIUM 3.9 mmol/L (3.5-5.1)
--- NOTE | 2018-01-24 06:28 | RAD ---
Indication:Respiratory distress, abnormal lung sounds
2 attempts TECHNIQUE:Portable AP chest X-ray COMPARISON:01/23/2018 FINDINGS: Stable position of left-sided PICC line. Patient is slightly rotated to the right side. Heart is moderately enlarged in size. Diffuse perihilar interstitial opacities are seen with superimposed diffuse interstitial opacities. No focal consolidation. No pneumothorax or pleural effusion. Visualized bony thorax within normal limits. IMPRESSION: Findings suggests interstitial pulmonary edema. Electronically signed by: iNcolas Oneill DO (01/24/2018 6:24 AM) [facility]
[2018-01-24 12:07] LABS: THYROXINE 6.2 ug/dL (4.5-12.0)
[2018-01-24] MEDS ORDERED: WARFARIN 5 MG TABLET. PO SCH (16:00)
[2018-01-24] MEDS ORDERED: WARFARIN 10 MG TABLET. PO SCH (16:00)
--- NOTE | 2018-01-24 19:13 | PDOC ---
Exam Note: Diomedes Note: Please also refer to the separate dictated note~for this date of service dictated separately.~Patient seen individually. Discussed the patient with Nursing staff reviewed the chart.~Reviewed interim history and current functioning. Reviewed vital signs,~Labs/ Radiology~and current medications noted below. Continue current treatment with the changes noted in the dictated addendum note Assessment: Vital Signs: Vital Signs Date Time Temp Pulse Resp B/P (MAP) Pulse Ox O2 Delivery O2 Flow Rate FiO2 01/23/18 16:38 97.3 71 24 122/78 (93) 94 01/23/18 06:24 Nasal Cannula 3.0 I&O Intake and Output 01/24/18 07:00 Intake Total 1080 ml Balance 1080 ml Intake Oral 1080 ml Labs: Laboratory Tests Test 01/23/18 19:17 01/24/18 01:20 01/24/18 01:26 Glucose (Fingerstick) 141 mg/dL (70-99) H Blood pH 7.33 (7.35-7.45) L Blood Gas PCO2 48 mmHg (35-45) H Blood Gas PO2 66 mmHg (71-100) L Blood Gas HCO3 25 mmol/L (22-26) Arterial Bld O2 Saturation (Calc) 91 % (92-99) L FiO2 28 % White Blood Count 13.2 x10^3/uL (4.0-11.0) H Red Blood Count 4.89 x10^6/uL (3.50-5.40) Hemoglobin 14.8 g/dL (12.0-15.5) Hematocrit 44.5 % (36.0-47.0) Mean Corpuscular Volume 91 fL (79-100) Mean Corpuscular Hemoglobin 30 pg (25-35) Mean Corpuscular Hemoglobin Concent 33 g/dL (31-37) Red Cell Distribution Width 18.7 % (11.5-14.5) H Platelet Count 181 x10^3/uL (140-400) Neutrophils (%) (Auto) 82 % (31-73) H Lymphocytes (%) (Auto) 10 % (24-48) L Monocytes (%) (Auto) 5 % (0-9) Eosinophils (%) (Auto) 3 % (0-3) Basophils (%) (Auto) 1 % (0-3) Neutrophils # (Auto) 10.8 x10^3uL (1.8-7.7) H Lymphocytes # (Auto) 1.3 x10^3/uL (1.0-4.8) Monocytes # (Auto) 0.7 x10^3/uL (0.0-1.1) Eosinophils # (Auto) 0.3 x10^3/uL (0.0-0.7) Basophils # (Auto) 0.1 x10^3/uL (0.0-0.2) Prothrombin Time 13.8 SEC (9.4-11.4) H Prothrombin Time INR 1.4 (0.9-1.1) H Sodium Level 137 mmol/L (136-145) Potassium Level 3.9 mmol/L (3.5-5.1) Chloride Level 103 mmol/L (98-107) Carbon Dioxide Level 28 mmol/L (21-32) Anion Gap 6 (6-14) Blood Urea Nitrogen 21 mg/dL (7-20) H Creatinine 1.7 mg/dL (0.6-1.0) H Estimated GFR (Cockcroft-Gault) 29.5 BUN/Creatinine Ratio 12 (6-20) Glucose Level 121 mg/dL (70-99) H Lactic Acid Level 1.3 mmol/L (0.4-2.0) Calcium Level 8.6 mg/dL (8.5-10.1) Total Bilirubin 0.3 mg/dL (0.2-1.0) Aspartate Amino Transferase (AST) 33 U/L (15-37) Alanine Aminotransferase (ALT) 28 U/L (14-59) Alkaline Phosphatase 75 U/L (46-116) ZH-Fgi-B-Type Natriuretic Peptide 2583 pg/mL (0-124) H Total Protein 7.3 g/dL (6.4-8.2) Albumin 2.2 g/dL (3.4-5.0) L Albumin/Globulin Ratio 0.4 (1.0-1.7) L Current Medications: Meds: Current Medications Acetaminophen (Tylenol) 650 mg PRN Q6HRS PRN PO PAIN / TEMP Last administered on 01/24/18at 00:21; Start 01/22/18 at 15:00; Stop 01/24/18 at 02:00; Status DC Multi-Ingredient Ointment (Analgesic [place]) 1 manjeet PRN QID PRN TP MUSCLE PAIN; Start 01/22/18 at 15:00; Stop 01/24/18 at 02:00; Status DC Al Hydroxide/Mg Hydroxide (Mylanta Plus Xs) 15 ml PRN AFTMEALHC PRN PO DYSPEPSIA; Start 01/22/18 at 15:00; Stop 01/24/18 at 02:00; Status DC Magnesium Hydroxide (Milk Of Magnesia) 2,400 mg PRN QHS PRN PO CONSTIPATION; Start 01/22/18 at 15:00; Stop 01/24/18 at 02:00; Status DC Nicotine (Nicoderm Cq 21mg) 1 patch DAILY TD ; Start 01/23/18 at 09:00; Stop at 02:00; Status DC Vitamin D (Vitamin D3) 2,000 unit BID PO Last administered on 01/23/18at 20:18; Start 01/22/18 at 21:00; Stop 01/24/18 at 02:00; Status DC Diltiazem HCl (Cardizem 24hr Cd) 240 mg DAILY PO Last administered on at 08:12; Start 01/23/18 at 09:00; Stop 01/24/18 at 02:00; Status DC Insulin Glargine (Lantus) 23 units DAILY SQ Last administered on 01/23/18at 09: 25; Start 01/23/18 at 09:00; Stop 01/24/18 at 02:00; Status DC Insulin Human Lispro (HumaLOG) 3 units TIDAC SQ Last administered on 01/23/18at 18:37; Start 01/22/18 at 16:30; Stop 01/24/18 at 02:00; Status DC Nystatin (Nystop) 1 manjeet TID TP Last administered on 01/23/18at 21:40; Start at 21:00; Stop 01/24/18 at 02:00; Status DC Potassium Chloride (Klor-Con) 20 meq DAILY PO Last administered on 01/23/18at 08 :12; Start 01/23/18 at 09:00; Stop 01/24/18 at 02:00; Status DC Atorvastatin Calcium (Lipitor) 20 mg QHS PO Last administered on 01/23/18at 20: 18; Start 01/22/18 at 21:00; Stop 01/24/18 at 02:00; Status DC Warfarin Sodium (Coumadin) 5 mg DAILY16 PO Last administered on 01/22/18at 17:23 ; Start 01/22/18 at 16:00; Stop 01/23/18 at 16:50; Status DC Acetaminophen (Tylenol) 1,000 mg PRN Q8HRS PRN PO PAIN / TEMP Last administered on 01/23/18at 06:46; Start 01/22/18 at 15:45; Stop 01/24/18 at 02:00 ; Status DC Artificial Tears (Artificial Tears) 1 drop BID OU Last administered on at 20:19; Start 01/22/18 at 21:00; Stop 01/24/18 at 02:00; Status DC Enoxaparin Sodium (Lovenox 40mg Syringe) 40 mg DAILY SQ Last administered on at 08:13; Start 01/23/18 at 09:00; Stop 01/23/18 at 17:33; Status DC Lactobacillus Rhamnosus (Culturelle) 1 cap BID PO Last administered on at 20:18; Start 01/22/18 at 21:00; Stop 01/24/18 at 02:00; Status DC Levofloxacin (Levaquin) 750 mg QODAY PO Last administered on 01/22/18at 17:23; Start 01/22/18 at 15:45; Stop 01/24/18 at 02:00; Status DC Metoprolol Succinate (Toprol Xl) 50 mg DAILY PO Last administered on 01/23/18at 08:12; Start 01/23/18 at 09:00; Stop 01/24/18 at 02:00; Status DC Spironolactone (Aldactone) 25 mg DAILY PO Last administered on 01/23/18at 08:12 ; Start 01/23/18 at 09:00; Stop 01/24/18 at 02:00; Status DC Torsemide (Demadex) 50 mg DAILY PO Last administered on 01/23/18at 08:24; Start 01/23/18 at 09:00; Stop 01/24/18 at 02:00; Status DC Levothyroxine Sodium (Synthroid) 100 mcg DAILY06 PO Last administered on at 06:11; Start 01/23/18 at 06:00; Stop 01/24/18 at 02:00; Status DC Quetiapine Fumarate (SEROquel) 25 mg PRN TID PRN PO AGITATION; Start 01/22/18 at 15:45; Stop 01/24/18 at 02:00; Status DC Sertraline HCl (Zoloft) 25 mg DAILY PO Last administered on 01/23/18at 08:12; Start 01/23/18 at 09:00; Stop 01/24/18 at 02:00; Status DC Alteplase, Recombinant (Cathflo) 2 mg 1X ONCE INT CAT Last administered on at 12:15; Start 01/23/18 at 12:15; Stop 01/23/18 at 12:17; Status DC Alteplase, Recombinant (Cathflo) 2 mg 1X ONCE INT CAT Last administered on at 12:15; Start 01/23/18 at 12:15; Stop 01/23/18 at 12:17; Status DC Alteplase, Recombinant (Cathflo) 2 mg 1X ONCE INT CAT Last administered on at 14:09; Start 01/23/18 at 12:15; Stop 01/23/18 at 12:17; Status DC Warfarin Sodium (Coumadin) 10 mg DAILY16 PO ; Start 01/24/18 at 16:00; Stop at 16:00; Status DC Warfarin Sodium (Coumadin) 5 mg DAILY16 PO ; Start 01/24/18 at 16:00; Stop 01/24 at 16:00; Status DC Enoxaparin Sodium (Lovenox 120mg Syringe) 120 mg Q12HR SQ Last administered on 01/23/18at 20:20; Start 01/23/18 at 21:00; Stop 01/24/18 at 02:00; Status DC Torsemide (Demadex) 50 mg 1X ONCE PO Last administered on 01/23/18at 18:36; Start 01/23/18 at 17:45; Stop 01/23/18 at 17:46; Status DC Potassium Chloride (Klor-Con) 20 meq 1X ONCE PO Last administered on at 18:36; Start 01/23/18 at 20:00; Stop 01/23/18 at 20:01; Status DC Active Scripts Active Reported Zoloft (Sertraline Hcl) 25 Mg Tablet 25 Mg PO DAILY NICODERM CQ 21mg (Nicotine) 1 Each Patch.td24 1 Patch TD DAILY Analgesic [place] (Methyl Salicylate/Menthol) 28 Gm Oint...g. 1 Manjeet TP PRN QID PRN Milk Of Magnesia (Magnesium Hydroxide) 2,400 Mg/10 Ml Oral.susp 2,400 Mg PO PRN Q8HRS PRN Advanced Antacid Liquid (Mag Hydrox/Al Hydrox/Simeth) 355 Ml Oral.susp 15 Ml PO PRN AFTMEALHC PRN Tylenol (Acetaminophen) 325 Mg Tablet 650 Mg PO PRN Q6HRS PRN Levaquin (Levofloxacin) 750 Mg Tablet 750 Mg PO EVERY 48 HOURS 4 Days Lovenox (Enoxaparin Sodium) 120 Mg/0.8 Ml Disp.syrin 120 Mg SQ DAILY Culturelle (Lactobacillus Rhamnosus Gg) 1 Each Capsule 1 Each PO BID Coumadin (Warfarin Sodium) 2.5 Mg Tablet 5 Mg PO DAILY16 Vitamin D3 (Cholecalciferol (Vitamin D3)) 1,000 Unit Tablet 2,000 Unit PO BID Torsemide 100 Mg Tablet 50 Mg PO DAILY Spironolactone 25 Mg Tablet 25 Mg PO DAILY Simvastatin 40 Mg Tablet 20 Mg PO HS Seroquel (Quetiapine Fumarate) 25 Mg Tablet 25 Mg PO PRN TID PRN Klor-Con M20 (Potassium Chloride) 20 Meq Tab.er.prt 20 Meq PO DAILY Nystatin 15 Gm Powder 1 Manjeet TP TID APPLY UNDER EACH BREAST Toprol Xl (Metoprolol Succinate) 50 Mg Tab.er.24h 50 Mg PO DAILY Levothyroxine Sodium 100 Mcg Tablet 100 Mcg PO DAILY06 Lantus Solostar (Insulin Glargine,Hum.rec.anlog) 100 Unit/1 Ml Insuln.pen 23 Unit SQ DAILY Humalog (Insulin Lispro) 100 Unit/1 Ml Insuln.pen 3 Unit SQ TIDAC Cardizem Cd (Diltiazem Hcl) 240 Mg Cap.er.24h 240 Mg PO DAILY Artificial Tears Eye Drops (Dextran 70/Hypromellose) 15 Ml Drops 1 Drop EACHEYE BID Acetaminophen 500 Mg Tablet 1,000 Mg PO PRN Q8HRS PRN I have reviewed the current psychotropics carefully including drug interactions. Risk benefit ratio favors no change other than as noted in my dictated progress note. Diagnosis: Problems: (1) Impulse control disorder (2) Major depressive disorder, recurrent episode (3) Anxiety disorder (4) Psychotic depression JAZMINE KILLIAN MD Jan 24, 2018 19:13
--- NOTE | 2018-01-24 22:20 | PN ---
DATE: 01/23/2018 This is a late entry for 01/23/2018 covers elements not covered in my initial note. SUBJECTIVE: I met with the patient in the evening. The patient slept just one hour previous night. She remains somewhat withdrawn, but reasonably oriented. REVIEW OF SYSTEMS: Ambulation impaired, in wheelchair, complains of swelling in her lower extremities, does have cellulitis. No CV, , pulmonary, eye system symptoms on review. MENTAL STATUS EXAM: Reasonably oriented. Speech low in rate and rhythm, low in volume. Abstraction fair, computation impaired, language function intact. Mood and affect appears depressed. LABORATORY DATA: Reviewed. IMPRESSION: Unchanged from initial note. PLAN: No change from initial note. We will defer to Dr. Maya for medical needs and she seemed somewhat compromised. MAN Otis KILLIAN MD DR: LYDIA/janeth JOB#: [id number] / [id number]
[2018-01-25 03:08] LABS: HEMOGLOBIN A1C 7.1 % (4.8-5.6)
--- NOTE | 2018-01-25 10:46 | DS ---
DATE OF DISCHARGE: 01/24/2018 This late entry 01/24/2018 covers elements, not covered in my initial note. REASON FOR ADMISSION: Please refer to the admission history for details. Briefly, the patient is a 72-year-old female initially referred to us from [facility] on account of worsening psychotic symptoms, agitation, aggression, threatening to hurt herself, believing she was being kidnapped. She presented to the ER at [facility], was admitted to [address] [place] [address] for cellulitis, lower extremity with sepsis, acute kidney injury. She is medically stabilized, but was ripping out her PICC line. Remains psychotic, agitated, labile and was admitted to [facility] for psychiatric stabilization. SIGNIFICANT FINDINGS AND CLINICAL COURSE: Following admission, the patient was seen daily individually by myself, followed medically per Dr. Maya/Dr. Atkins. The patient was continued on her psychotropics. Zoloft was added 25 mg a day for her mood, anxiety symptoms, and she was on Seroquel 25 t.i.d. UA was positive on 01/21/2018 and she was on Levaquin for this. She remained somewhat withdrawn, irritable at times, but medically seemed unstable and was transferred back to [address] [place] [address] Medical/Surgical floor per Dr. Maya. Prior to discharge, 01/24/2018, ambulation impaired, in wheelchair, complains of leg swelling. No CV, , pulmonary, eye system symptoms on review. MENTAL STATUS EXAM: The patient is reasonably oriented. Speech has some latency, low in rate and rhythm, often responses monosyllabic. Abstraction fair, computation impaired, language function intact. Mood and affect remain somewhat depressed. LABORATORY DATA: Reviewed. FINAL DIAGNOSES: Major depressive disorder, recurrent; anxiety disorder, unspecified; impulse control disorder, unspecified. Rest unchanged from admission. DISCHARGE MEDICATIONS: Please refer to the MRAD. DISCHARGE INSTRUCTIONS: Further psychiatric medical followup on [address] [place] [address]. MAN Otis KILLIAN MD DR: LYDIA/janeth JOB#: [id number] / [id number]
== END 2018-01-24 02:00 | disposition short-term general hospital (02) | DRG 885 ==
LOC: GEROPSY 13:04
PROVIDERS: ADMIT Psychiatry & Neurology Psychiatry; ATTEND Psychiatry & Neurology Psychiatry
DX: F33.9 Major depressive disorder, recurrent, unspecified (principal); A41.9 Sepsis, unspecified organism; E43 Unspecified severe protein-calorie malnutrition; I13.0 Hypertensive heart and chronic kidney disease with heart failure and stage 1 through stage 4 chronic kidney disease, or unspecified chronic kidney disease; N39.0 Urinary tract infection, site not specified; L03.119 Cellulitis of unspecified part of limb; E11.51 Type 2 diabetes mellitus with diabetic peripheral angiopathy without gangrene; E11.22 Type 2 diabetes mellitus with diabetic chronic kidney disease; E03.9 Hypothyroidism, unspecified; F63.9 Impulse disorder, unspecified; F41.9 Anxiety disorder, unspecified; E78.5 Hyperlipidemia, unspecified; G31.84 Mild cognitive impairment of uncertain or unknown etiology; R45.850 Homicidal ideations; Z79.01 Long term (current) use of anticoagulants; Z90.710 Acquired absence of both cervix and uterus; Z96.652 Presence of left artificial knee joint; N18.9 Chronic kidney disease, unspecified; J44.9 Chronic obstructive pulmonary disease, unspecified; I50.9 Heart failure, unspecified; I48.91 Unspecified atrial fibrillation; M19.90 Unspecified osteoarthritis, unspecified site
CPT/HCPCS: 36415; 36600; 71045; 71046; 80053; 80061; 82306; 82607; 82803; 82947; 83036; 83540; 83550; 83605; 83735; 83880; 84436; 84443; 84480; 85025; 85610; 86592; 99407; J1650; J1815; J2997

== ENCOUNTER 2018-01-24 01:05 | Inpatient (IN) | payer MEDICARE ==
[~2018-01-24] VITALS: Ht 160 cm; Wt 104.9 kg
[2018-01-24] VITALS (18 sets, daily range): BP systolic 75–172; BP diastolic 57–95
[~2018-01-24 01:05] MED LIST changes: +ENOX120D SQ; +LACT1CAP21 PO; +LEVO750T31 PO
[2018-01-24] MEDS ORDERED: ACET325T9 PO (01:15)
[2018-01-24] MEDS ORDERED: MAG355OR17 PO (01:16)
[2018-01-24] MEDS ORDERED: MAGN2400 PO (01:16)
[2018-01-24] MEDS ORDERED: METH29OI TP (01:17)
[2018-01-24] MEDS ORDERED: NICO1PAT21 TD (01:17)
[2018-01-24] MEDS ORDERED: SERT25TA PO (01:18)
[2018-01-24] MEDS ORDERED: QUEtiapine 25 MG TABLET. PO PRN (06:15)
[2018-01-24] MEDS ORDERED: METHYL SALICYLATE/MENTHOL TOPICAL OINTMENT 29GM TUBE. TP PRN (06:15)
[2018-01-24] MEDS ORDERED: ACETAMINOPHEN 325 MG TABLET PO PRN (06:15)
[2018-01-24] MEDS ORDERED: MAGNESIUM HYDROXIDE 2,400 MG/30 ML ORAL.SUSP. PO PRN (06:15)
[2018-01-24] MEDS ORDERED: MAG HYDROX/AL HYDROX/SIMETH 30 ML ORAL.SUSP PO PRN (06:15)
[2018-01-24] MEDS: INSULIN LISPRO 300 UNITS/3 ML INSULN.PEN. SQ SCH ×3 (07:30→16:35)
[2018-01-24] MEDS ORDERED: ACETAMINOPHEN 500 MG TABLET PO PRN (07:30)
[2018-01-24] MEDS: METOPROLOL SUCC 24HR ER 50 MG TAB.ER.24H. PO SCH (07:55)
[2018-01-24] MEDS ORDERED: ALBUTEROL SULFATE 2.5 MG/3 ML NEBU. NEB PRN (08:00)
[2018-01-24] MEDS: LACTOBACILLUS RHAMNOSUS GG 1 CAPSULE. PO SCH ×2 (08:26→21:44)
[2018-01-24] MEDS: levoFLOXacin 750 MG TABLET PO SCH (08:26)
[2018-01-24] MEDS: methylPREDNISolone SOD SUCC PF 125 MG/2 ML VIAL. IV SCH ×3 (08:26→21:45)
[2018-01-24] MEDS: POTASSIUM CHLORIDE 20 MEQ TABLET.ER. PO SCH (08:26)
[2018-01-24] MEDS: SERTRALINE 25 MG TABLET. PO SCH (08:26)
[2018-01-24] MEDS: CHOLECALCIFEROL (VITAMIN D3) 1,000 UNIT TABLET PO SCH ×2 (08:26→21:44)
[2018-01-24] MEDS: NICOTINE 21MG PATCH. TD SCH (08:27)
[2018-01-24] MEDS: ENOXAPARIN ** NOTE DOSE ** SYRINGE SQ SCH ×2 (08:27→21:45)
[2018-01-24] MEDS: NYSTATIN TOPICAL POWDER 15GM BOTTLE. TP SCH ×3 (08:27→21:45)
[2018-01-24] MEDS: POLYVINYL ALCOHOL/POVIDONE/PF OPHTH SOLUTION DROPERETTE. OU SCH ×2 (08:27→21:44)
[2018-01-24] MEDS: INSULIN GLARGINE 300 UNITS/3 ML INSULN.PEN. SQ SCH (08:33)
[2018-01-24] MEDS: IPRATRPIUM/ALBUTEROL 0.5/2.5MG 3 ML NEBU. NEB SCH ×4 (08:43→20:54)
[2018-01-24] MEDS: TORSEMIDE 20 MG TABLET. PO SCH (09:00)
[2018-01-24] MEDS: SPIRONOLACTONE 25 MG TABLET PO SCH (09:00)
[2018-01-24] MEDS ORDERED: POLYVINYL ALCOHOL 1.4% OPHTH SOLUTION 15ML BOTTLE. OU SCH (09:00)
--- NOTE | 2018-01-24 11:31 | PDOC2 ---
NICOLE RANKIN APRN 01/24/18 1131: CONSULT Date of Admission DATE: 01/24/18 TIME: 11:12 Reason for Consult: chf History of Present Illness Ms Sotelo is a 72-year-old female normally residing at [facility] who was initially admitted with aggression, confusion, severe mood swings for [place] [facility]. She was diagnosed with a UTI and admitted to the medical floor. after stabilization she was transferred to [facility]. Since that time she apparently developed dyspnea and was found to have pulmonary congestion so consult was called. She has been intermittently confused and delusional believing she has been taken hostage. History is obtained from the chart. The patient herself denies any significant history other than atrial fibrillation. She currently denies chest pain, reports her breathing is a little better and denies palpitations or congestive symptoms. Past Medical History Significant for atrial fibrillation, hyperlipidemia, hypertension, congestive heart failure, chronic kidney disease as well as type 2 diabetes and hypothyroidism. Recent inpatient stay at [facility] for cellulitis with PICC for ongoing abx. Past Surgical History Significant for left total knee arthroplasty. Family History unavailable Social History She is a resident at [facility]. She does not smoke, drink alcohol or use any recreational drugs. Current Medications Current Medications Acetaminophen (Tylenol) 650 mg PRN Q6HRS PRN PO PAIN / TEMP; Start 01/24/18 at 06:15; Stop 01/24/18 at 07:21; Status DC Vitamin D (Vitamin D3) 2,000 unit BID PO Last administered on 01/24/18at 08:26; Start 01/24/18 at 09:00 Diltiazem HCl (Cardizem 24hr Cd) 240 mg DAILY PO ; Start 01/24/18 at 09:00 Insulin Glargine (Lantus) 23 units DAILY SQ Last administered on 01/24/18at 08: 33; Start 01/24/18 at 09:00 Insulin Human Lispro (HumaLOG) 3 units TIDAC SQ ; Start 01/24/18 at 07:30 Levothyroxine Sodium (Synthroid) 100 mcg DAILY06 PO ; Start 01/25/18 at 06:00 Multi-Ingredient Ointment (Analgesic [place]) 1 manjeet PRN QID PRN TP MUSCLE PAIN; Start 01/24/18 at 06:15 Nystatin (Nystop) 1 manjeet TID TP Last administered on 01/24/18at 08:27; Start at 09:00 Potassium Chloride (Klor-Con) 20 meq DAILY PO Last administered on 01/24/18at 08 :26; Start 01/24/18 at 09:00 Simvastatin (Zocor) 20 mg HS PO ; Start 01/24/18 at 21:00 Acetaminophen (Tylenol) 500 mg PRN Q8HRS PRN PO PAIN / TEMP; Start 01/24/18 at 07:30; Stop 01/24/18 at 07:30; Status DC Artificial Tears (Artificial Tears) 1 drop BID OU ; Start 01/24/18 at 09:00; Status Cancel Enoxaparin Sodium (Lovenox 120mg Syringe) 110 mg BID SQ Last administered on at 08:27; Start 01/24/18 at 09:00 Lactobacillus Rhamnosus (Culturelle) 1 cap BID PO Last administered on at 08:26; Start 01/24/18 at 09:00 Levofloxacin (Levaquin) 750 mg QODAY PO Last administered on 01/24/18at 08:26; Start 01/24/18 at 09:00 Al Hydroxide/Mg Hydroxide (Mylanta Plus Xs) 15 ml PRN AFTMEALHC PRN PO DYSPEPSIA; Start 01/24/18 at 06:15 Magnesium Hydroxide (Milk Of Magnesia) 2,400 mg PRN Q8HRS PRN PO CONSTIPATION; Start 01/24/18 at 06:15 Metoprolol Succinate (Toprol Xl) 50 mg DAILY PO ; Start 01/24/18 at 09:00 Nicotine (Nicoderm Cq 21mg) 1 patch DAILY TD Last administered on 01/24/18at 08: 27; Start 01/24/18 at 09:00 Quetiapine Fumarate (SEROquel) 25 mg PRN TID PRN PO AGITATION; Start 01/24/18 at 06:15 Sertraline HCl (Zoloft) 25 mg DAILY PO Last administered on 01/24/18at 08:26; Start 01/24/18 at 09:00 Spironolactone (Aldactone) 25 mg DAILY PO ; Start 01/24/18 at 09:00 Torsemide (Demadex) 50 mg DAILY PO ; Start 01/24/18 at 09:00 Acetaminophen (Tylenol) 1,000 mg PRN Q8HRS PRN PO PAIN / TEMP; Start 01/24/18 at 07:30 Methylprednisolone Sodium Succinate (SOLU-Medrol 125MG VIAL) 125 mg Q8HRS IV Last administered on 01/24/18at 08:26; Start 01/24/18 at 08:00 Albuterol/ Ipratropium (Duoneb) 3 ml RTQID NEB Last administered on 01/24/18at 08:43; Start 01/24/18 at 08:00 Albuterol Sulfate (Ventolin) 2.5 mg PRN Q2HR PRN NEB SHORTNESS OF BREATH; Start 01/24/18 at 08:00 Artificial Tears (Refresh Classic) 1 drop BID OU Last administered on at 08:27; Start 01/24/18 at 09:00 Active Scripts Active Reported Zoloft (Sertraline Hcl) 25 Mg Tablet 25 Mg PO DAILY NICODERM CQ 21mg (Nicotine) 1 Each Patch.td24 1 Patch TD DAILY Analgesic [place] (Methyl Salicylate/Menthol) 28 Gm Oint...g. 1 Manjeet TP PRN QID PRN Milk Of Magnesia (Magnesium Hydroxide) 2,400 Mg/10 Ml Oral.susp 2,400 Mg PO PRN Q8HRS PRN Advanced Antacid Liquid (Mag Hydrox/Al Hydrox/Simeth) 355 Ml Oral.susp 15 Ml PO PRN AFTMEALHC PRN Tylenol (Acetaminophen) 325 Mg Tablet 650 Mg PO PRN Q6HRS PRN Levaquin (Levofloxacin) 750 Mg Tablet 750 Mg PO EVERY 48 HOURS 4 Days Lovenox (Enoxaparin Sodium) 120 Mg/0.8 Ml Disp.syrin 120 Mg SQ DAILY Culturelle (Lactobacillus Rhamnosus Gg) 1 Each Capsule 1 Each PO BID Coumadin (Warfarin Sodium) 2.5 Mg Tablet 5 Mg PO DAILY16 Vitamin D3 (Cholecalciferol (Vitamin D3)) 1,000 Unit Tablet 2,000 Unit PO BID Torsemide 100 Mg Tablet 50 Mg PO DAILY Spironolactone 25 Mg Tablet 25 Mg PO DAILY Simvastatin 40 Mg Tablet 20 Mg PO HS Seroquel (Quetiapine Fumarate) 25 Mg Tablet 25 Mg PO PRN TID PRN Klor-Con M20 (Potassium Chloride) 20 Meq Tab.er.prt 20 Meq PO DAILY Nystatin 15 Gm Powder 1 Manjeet TP TID APPLY UNDER EACH BREAST Toprol Xl (Metoprolol Succinate) 50 Mg Tab.er.24h 50 Mg PO DAILY Levothyroxine Sodium 100 Mcg Tablet 100 Mcg PO DAILY06 Lantus Solostar (Insulin Glargine,Hum.rec.anlog) 100 Unit/1 Ml Insuln.pen 23 Unit SQ DAILY Humalog (Insulin Lispro) 100 Unit/1 Ml Insuln.pen 3 Unit SQ TIDAC Cardizem Cd (Diltiazem Hcl) 240 Mg Cap.er.24h 240 Mg PO DAILY Artificial Tears Eye Drops (Dextran 70/Hypromellose) 15 Ml Drops 1 Drop EACHEYE BID Acetaminophen 500 Mg Tablet 1,000 Mg PO PRN Q8HRS PRN Allergies: Coded Allergies: Sulfa (Sulfonamide Antibiotics) (Verified Allergy, Intermediate, 01/21/18) amoxicillin (Verified Allergy, Intermediate, 01/21/18) vancomycin (Verified Allergy, Intermediate, 01/21/18) Review of System as per HPI or negative but limited by metal status General: Alert, Cooperative, No acute distress HEENT: Atraumatic, EOMI Lungs: Other (decreased with expiratory wheezing and few bibasilar crackles) Heart: Normal S1, Normal S2, Other (IRR no gallops, clicks or rubs) Abdomen: Normal bowel sounds, Soft Extremities: Other (chronic venous stasis changes, 1+ edema bilaterally) Neuro: Normal speech, Strength at 5/5 X4 ext Psych/Mental Status: Mood NL, Other (intermittent confusion and delusions) VITALS Vital Signs Date Time Temp Pulse Resp B/P (MAP) Pulse Ox O2 Delivery O2 Flow Rate FiO2 01/24/18 10:58 115 26 172/86 (114) 89 Nasal Cannula 3.0 01/24/18 02:00 98.1 Labs Laboratory Tests Test 01/24/18 07:44 01/24/18 10:00 Glucose (Fingerstick) 79 mg/dL (70-99) Prothrombin Time 14.4 SEC (9.4-11.4) Prothromb Time International Ratio 1.5 (0.9-1.1) Images CXR - interstitial pulmonary edema Assessment/Plan 1. acute, prob diastolic, heart failure 2. hypotension 3. atrial fibrillation 4. UTI 5. recent cellulitis 6. CKD check echo, EKG and trop. on warfarin for stroke prophylaxis. albumin and lasix for gentle diuresis with close monitoring of blood pressure. Request records from primary mat tester at . Continue with supportive care. JAHAIRA BLUM MD 01/24/18 8324: CONSULT Assessment/Plan Patient seen and examined. Agree with [facility] TENDER's assessment and plan Continue diuresis for acute on chronic diastolic heart failure Permanent atrial fibrillation rate controlled 2-D echo showed normal LV systolic function Continue warfarin for stroke prophylaxis Continue current management of UTI per IM Thank you for your consultation INCOLE RANKIN APRN Jan 24, 2018 11:31 JAHAIRA BLUM MD Jan 24, 2018 17:04
[2018-01-24] MEDS ORDERED: MAGNESIUM SULFATE 2GM 50 ML IV ONE (11:45)
[2018-01-24] MEDS ORDERED: ALBUMIN HUMAN 25% 50 ML IV ONE (12:00)
[2018-01-24] MEDS: MAGNESIUM SULFATE 1GM 100 ML IV SCH ×2 (12:18→13:18)
[2018-01-24] MEDS: FUROSEMIDE INJ 100 MG in IV NORMAL SALINE 100ML 90 ML IV PRN (12:34)
--- NOTE | 2018-01-24 13:34 | EKG ---
[address] [address] Test Date: 2018-01-24 Test Time: 11:40:53 Pat Name: NEPTALI HOLLY Department: Room: [place] [address] Gender: F Cylinder Dyer: : 1945 Requested By: NICOLE RANKIN Order Number: [id number] Reading MD: Oracio Rodriguez Measurements Intervals [place] Rate: 79 P: IA: QRS: -3 QRSD: 74 T: 157 QT: 374 QTc: 430 Interpretive Statements ATRIAL FIBRILLATION LEFTWARD AXIS T ABNORMALITY IN HIGH LATERAL LEADS Electronically Signed On 01-25-2018 11:13:31 CDT by Oracio Rodriguez
[2018-01-24] MEDS ORDERED: WARFARIN 5 MG TABLET. PO ONE (16:00)
[2018-01-24] MEDS ORDERED: DEXTROSE 50% 25 GM / 50ML DISP.SYRIN. IV PRN (16:30)
--- NOTE | 2018-01-24 16:48 | CARD ---
MR#: [id number] Date of Study: 01/24/2018 Ordering Physician: NICOLE RANKIN, Referring Physician: ASHLEY NEWSOME Tech: Kate Galindo RDCS APPROVED REPORT EXAM: Two-dimensional and M-mode echocardiogram with Doppler and color Doppler. Other Information Quality : Technically Limited Technically limited study due to patients inability to tolerate the echo. INDICATION Congestive Heart Failure 2D DIMENSIONS RVDd2.9 (2.9-3.5cm)Left Atrium(2D)4.7 (1.6-4.0cm) IVSd1.5 (0.7-1.1cm)Aortic Root(2D)3.0 (2.0-3.7cm) LVDd3.7 (3.9-5.9cm)LVOT Diameter2.1 (1.8-2.4cm) PWd1.5 (0.7-1.1cm)LVDs1.9 (2.5-4.0cm) FS (%) 30.0 %SV48.0 ml LVEF(%)60.0 (>50%) Aortic Valve AoV Peak Bryant.172.6cm/sAoV VTI28.9cm AO Peak GR.11.9mmHgLVOT Peak Bryant.160.6cm/s LVOT VTI 27.51cmAO Mean GR.8mmHg HUGO (VMAX)3.64dh7WRM (VTI)3.19cm2 Tricuspid Valve TR P. Tplopdhx949mn/sRAP [id number] TR Peak Gr.28xhUgMVUX89rePm LEFT VENTRICLE The left ventricle is normal size. There is mild concentric left ventricular hypertrophy. The left ve ntricular systolic function is normal. The Ejection Fraction is 55-60%. There is normal LV segmental wall motion. RIGHT VENTRICLE The right ventricle is mildly dilated. Systolic function is mildly reduced. ATRIA The left atrium is mildly dilated. The right atrium is mildly dilated. The interatrial septum is inta ct with no evidence for an atrial septal defect or patent foramen ovale as noted on 2-D or Doppler im aging. AORTIC VALVE The aortic valve is not well visualized. Doppler and Color Flow revealed no significant aortic regurg itation. There is no significant aortic valvular stenosis. MITRAL VALVE The mitral valve is calcified but opens well. There is no evidence of mitral valve prolapse. There is no mitral valve stenosis. Doppler and Color-flow revealed mild mitral regurgitation. TRICUSPID VALVE The tricuspid valve is normal in structure and function. Doppler and Color Flow revealed trace tricus pid regurgitation. There is moderate pulmonary hypertension. The PA pressure was estimated at 48 mmHg . There is no tricuspid valve stenosis. PULMONIC VALVE The pulmonic valve is not well visualized. GREAT VESSELS The aortic root is normal in size. The ascending aorta is not well seen. The IVC was not visualized. PERICARDIAL EFFUSION There is no evidence of significant pericardial effusion. Critical Notification Critical Value: No <Conclusion> The left ventricular systolic function is normal. The Ejection Fraction is 55-60%. There is normal LV segmental wall motion. Mild mitral regurgitation. Trace tricuspid regurgitation. The PA pressure was estimated at 48 mmHg. There is no evidence of significant pericardial effusion. Signed by : Oracio Rodriguez, Electronically Approved : 01/24/2018 16:47:07
[2018-01-24] MEDS ORDERED: SIMVASTATIN 20 MG TABLET PO SCH (21:00)
--- NOTE | 2018-01-24 21:39 | PDOC1 ---
History of Present Illness Reason for Visit: CHF History of Present Illness Ms Sotelo is a 72-year-old female normally residing at [facility] who was initially admitted with aggression, confusion, severe mood swings for [place] [employer] [facility]. She was diagnosed with a UTI and admitted to the medical floor treated with levaquin. After stabilization she was transferred to [facility]. Since that time she apparently developed dyspnea and was found to have symptoms consistent with CHF exacerbation. She has been intermittently confused and delusional believing she has been taken hostage. History is obtained from patient and the chart. The patient herself denies any significant history other than atrial fibrillation. She currently denies chest pain, reports her breathing is improving and denies palpitations or congestive symptoms. Reports that she needs assistance transferring WC to bed. Has chronic venous stasis skin changes and LE edema, denies pain. PMH: atrial fibrillation, hyperlipidemia, hypertension, congestive heart failure, chronic kidney disease as well as type 2 diabetes and hypothyroidism. Recent inpatient stay at [facility] for cellulitis with PICC for ongoing abx. PSH: left total knee arthroplasty. SocHX: She is a resident at [facility]. She does not smoke, drink alcohol or use any recreational drugs. Allergies: Coded Allergies: Sulfa (Sulfonamide Antibiotics) (Verified Allergy, Intermediate, 01/21/18) amoxicillin (Verified Allergy, Intermediate, 01/21/18) vancomycin (Verified Allergy, Intermediate, 01/21/18) Review of Systems Review Of Systems Due to dementia/poor historian, full/accurate ROS unobtainable see HPI Medications Current Medications Acetaminophen (Tylenol) 650 mg PRN Q6HRS PRN PO PAIN / TEMP; Start 01/24/18 at 06:15; Stop 01/24/18 at 07:21; Status DC Vitamin D (Vitamin D3) 2,000 unit BID PO Last administered on 01/24/18at 08:26; Start 01/24/18 at 09:00 Diltiazem HCl (Cardizem 24hr Cd) 240 mg DAILY PO ; Start 01/24/18 at 09:00 Insulin Glargine (Lantus) 23 units DAILY SQ Last administered on 01/24/18at 08: 33; Start 01/24/18 at 09:00 Insulin Human Lispro (HumaLOG) 3 units TIDAC SQ ; Start 01/24/18 at 07:30; Stop 01/24/18 at 16:27; Status DC Levothyroxine Sodium (Synthroid) 100 mcg DAILY06 PO ; Start 01/25/18 at 06:00 Multi-Ingredient Ointment (Analgesic Brady) 1 phuong PRN QID PRN TP MUSCLE PAIN; Start 01/24/18 at 06:15 Nystatin (Nystop) 1 phuong TID TP Last administered on 01/24/18at 14:13; Start at 09:00 Potassium Chloride (Klor-Con) 20 meq DAILY PO Last administered on 01/24/18at 08 :26; Start 01/24/18 at 09:00 Simvastatin (Zocor) 20 mg HS PO ; Start 01/24/18 at 21:00; Stop 01/24/18 at 21: 00; Status DC Acetaminophen (Tylenol) 500 mg PRN Q8HRS PRN PO PAIN / TEMP; Start 01/24/18 at 07:30; Stop 01/24/18 at 07:30; Status DC Artificial Tears (Artificial Tears) 1 drop BID OU ; Start 01/24/18 at 09:00; Status Cancel Enoxaparin Sodium (Lovenox 120mg Syringe) 110 mg BID SQ Last administered on at 08:27; Start 01/24/18 at 09:00 Lactobacillus Rhamnosus (Culturelle) 1 cap BID PO Last administered on at 08:26; Start 01/24/18 at 09:00 Levofloxacin (Levaquin) 750 mg QODAY PO Last administered on 01/24/18at 08:26; Start 01/24/18 at 09:00 Al Hydroxide/Mg Hydroxide (Mylanta Plus Xs) 15 ml PRN AFTMEALHC PRN PO DYSPEPSIA; Start 01/24/18 at 06:15 Magnesium Hydroxide (Milk Of Magnesia) 2,400 mg PRN Q8HRS PRN PO CONSTIPATION; Start 01/24/18 at 06:15 Metoprolol Succinate (Toprol Xl) 50 mg DAILY PO ; Start 01/24/18 at 09:00 Nicotine (Nicoderm Cq 21mg) 1 patch DAILY TD Last administered on 01/24/18at 08: 27; Start 01/24/18 at 09:00 Quetiapine Fumarate (SEROquel) 25 mg PRN TID PRN PO AGITATION; Start 01/24/18 at 06:15 Sertraline HCl (Zoloft) 25 mg DAILY PO Last administered on 01/24/18at 08:26; Start 01/24/18 at 09:00 Spironolactone (Aldactone) 25 mg DAILY PO ; Start 01/24/18 at 09:00 Torsemide (Demadex) 50 mg DAILY PO ; Start 01/24/18 at 09:00 Acetaminophen (Tylenol) 1,000 mg PRN Q8HRS PRN PO PAIN / TEMP; Start 01/24/18 at 07:30 Methylprednisolone Sodium Succinate (SOLU-Medrol 125MG VIAL) 125 mg Q8HRS IV Last administered on 01/24/18at 14:13; Start 01/24/18 at 08:00 Albuterol/ Ipratropium (Duoneb) 3 ml RTQID NEB Last administered on 01/24/18at 20:54; Start 01/24/18 at 08:00 Albuterol Sulfate (Ventolin) 2.5 mg PRN Q2HR PRN NEB SHORTNESS OF BREATH; Start 01/24/18 at 08:00 Artificial Tears (Refresh Classic) 1 drop BID OU Last administered on at 08:27; Start 01/24/18 at 09:00 Albumin Human 50 ml @ 50 mls/hr 1X ONCE IV Last administered on 01/24/18at 12: 18; Start 01/24/18 at 12:00; Stop 01/24/18 at 12:59; Status DC Furosemide 100 mg/ Sodium Chloride 100 ml @ 0 mls/hr CONT PRN IV PER PROTOCOL Last administered on 01/24/18at 12:34; Start 01/24/18 at 12:00 Magnesium Sulfate 50 ml @ 25 mls/hr 1X ONCE IV ; Start 01/24/18 at 11:45; Stop 01/24/18 at 13:44; Status UNV Atorvastatin Calcium (Lipitor) 40 mg QHS PO ; Start 01/24/18 at 21:00 Warfarin Sodium (Coumadin Per Pharmacy) 1 each PRN DAILY PRN MC SEE COMMENTS Last administered on 01/24/18at 15:26; Start 01/24/18 at 11:45 Magnesium Sulfate 100 ml @ 100 mls/hr Q1H IV Last administered on 01/24/18at 13 :18; Start 01/24/18 at 12:00; Stop 01/24/18 at 14:00; Status DC Warfarin Sodium (Coumadin) 5 mg 1X WARF ONCE PO Last administered on at 16:11; Start 01/24/18 at 16:00; Stop 01/24/18 at 16:01; Status DC Insulin Human Lispro (HumaLOG) 0-9 UNITS TIDWMEALS SQ Last administered on 01/24at 16:35; Start 01/24/18 at 17:00 Dextrose 12.5 gm PRN Q15MIN PRN IV SEE COMMENTS; Start 01/24/18 at 16:30 Active Scripts Active Reported Zoloft (Sertraline Hcl) 25 Mg Tablet 25 Mg PO DAILY NICODERM CQ 21mg (Nicotine) 1 Each Patch.td24 1 Patch TD DAILY Analgesic Brady (Methyl Salicylate/Menthol) 28 Gm Oint...g. 1 Phuong TP PRN QID PRN Milk Of Magnesia (Magnesium Hydroxide) 2,400 Mg/10 Ml Oral.susp 2,400 Mg PO PRN Q8HRS PRN Advanced Antacid Liquid (Mag Hydrox/Al Hydrox/Simeth) 355 Ml Oral.susp 15 Ml PO PRN AFTMEALHC PRN Tylenol (Acetaminophen) 325 Mg Tablet 650 Mg PO PRN Q6HRS PRN Levaquin (Levofloxacin) 750 Mg Tablet 750 Mg PO EVERY 48 HOURS 4 Days Lovenox (Enoxaparin Sodium) 120 Mg/0.8 Ml Disp.syrin 120 Mg SQ DAILY Culturelle (Lactobacillus Rhamnosus Gg) 1 Each Capsule 1 Each PO BID Coumadin (Warfarin Sodium) 2.5 Mg Tablet 5 Mg PO DAILY16 Vitamin D3 (Cholecalciferol (Vitamin D3)) 1,000 Unit Tablet 2,000 Unit PO BID Torsemide 100 Mg Tablet 50 Mg PO DAILY Spironolactone 25 Mg Tablet 25 Mg PO DAILY Simvastatin 40 Mg Tablet 20 Mg PO HS Seroquel (Quetiapine Fumarate) 25 Mg Tablet 25 Mg PO PRN TID PRN Klor-Con M20 (Potassium Chloride) 20 Meq Tab.er.prt 20 Meq PO DAILY Nystatin 15 Gm Powder 1 Phuong TP TID APPLY UNDER EACH BREAST Toprol Xl (Metoprolol Succinate) 50 Mg Tab.er.24h 50 Mg PO DAILY Levothyroxine Sodium 100 Mcg Tablet 100 Mcg PO DAILY06 Lantus Solostar (Insulin Glargine,Hum.rec.anlog) 100 Unit/1 Ml Insuln.pen 23 Unit SQ DAILY Humalog (Insulin Lispro) 100 Unit/1 Ml Insuln.pen 3 Unit SQ TIDAC Cardizem Cd (Diltiazem Hcl) 240 Mg Cap.er.24h 240 Mg PO DAILY Artificial Tears Eye Drops (Dextran 70/Hypromellose) 15 Ml Drops 1 Drop EACHEYE BID Acetaminophen 500 Mg Tablet 1,000 Mg PO PRN Q8HRS PRN Exam Vital Signs Vital Signs Date Time Temp Pulse Resp B/P (MAP) Pulse Ox O2 Delivery O2 Flow Rate FiO2 01/24/18 20:55 98 Nasal Cannula 2.0 01/24/18 18:10 91 119/58 (78) 01/24/18 15:29 16 01/24/18 02:00 98.1 General Appearance: Alert, Cooperative (conversational dyspnea 2-3 words, sitting up in chair "Can't breathe if I lay flat") HEENT: Atraumatic, EOMI, Mucous membr. moist/pink Respiratory: Other (decreased at bases, diffuse rhonchi, poor air movement) Heart: Other (irreg/irreg, no murmur) Abdominal: Soft, No tenderness Extremities: Other (venous stasis changes b/l lower legs/feet, 3+ pitting LE edema) Neuro: Normal tone (normal motor as tested, speech normal with convo dyspnea) Psych/Mental Status: Other (pleasantly confused) Assessment/Plan Assessment/Plan Acute CHF Hypotension Impulse Control Disorder UTI Recent Celllulitis CKD Hypomagnesemia Renal Insufficiency Hyperlipidemia Continue diuresis/warfarin per Cardio. Continue Levaquin, home lipitor/ synthroid. Slo-Mag 64, consult Dr Miramontes for impulse control disorder. COURSE Allergies Coded Allergies Type Severity Reaction Last Updated Verified Sulfa (Sulfonamide Antibiotics) Allergy Intermediate 01/21/18 Yes amoxicillin Allergy Intermediate 01/21/18 Yes vancomycin Allergy Intermediate 01/21/18 Yes Laboratory Tests Test 01/24/18 07:44 01/24/18 10:00 01/24/18 11:47 01/24/18 12:01 Glucose (Fingerstick) 79 mg/dL (70-99) 112 mg/dL (70-99) Prothrombin Time 14.4 SEC (9.4-11.4) Prothromb Time International Ratio 1.5 (0.9-1.1) Troponin I Quantitative < 0.017 ng/mL (0-0.055) Test 01/24/18 16:23 Glucose (Fingerstick) 215 mg/dL (70-99) Current Medications Medications (Trade) Dose Ordered Sig/Kelley Route PRN Reason Start Time Stop Time Status Last Admin Dose Admin Acetaminophen (Tylenol) 650 mg PRN Q6HRS PRN PO PAIN / TEMP 01/24/18 06:15 01/24/18 07:21 DC Vitamin D (Vitamin D3) 2,000 unit BID PO 01/24/18 09:00 01/24/18 08:26 Diltiazem HCl (Cardizem 24hr Cd) 240 mg DAILY PO 01/24/18 09:00 Insulin Glargine (Lantus) 23 units DAILY SQ 01/24/18 09:00 01/24/18 08:33 Insulin Human Lispro (HumaLOG) 3 units TIDAC SQ 01/24/18 07:30 01/24/18 16:27 DC Levothyroxine Sodium (Synthroid) 100 mcg DAILY06 PO 01/25/18 06:00 Multi-Ingredient Ointment (Analgesic Brady) 1 phuong PRN QID PRN TP MUSCLE PAIN 01/24/18 06:15 Nystatin (Nystop) 1 phuong TID TP 01/24/18 09:00 01/24/18 14:13 Potassium Chloride (Klor-Con) 20 meq DAILY PO 01/24/18 09:00 01/24/18 08:26 Simvastatin (Zocor) 20 mg HS PO 01/24/18 21:00 01/24/18 21:00 DC Acetaminophen (Tylenol) 500 mg PRN Q8HRS PRN PO PAIN / TEMP 01/24/18 07:30 01/24/18 07:30 DC Artificial Tears (Artificial Tears) 1 drop BID OU 01/24/18 09:00 Cancel Enoxaparin Sodium (Lovenox 120mg Syringe) 110 mg BID SQ 01/24/18 09:00 01/24/18 08:27 Lactobacillus Rhamnosus (Culturelle) 1 cap BID PO 01/24/18 09:00 01/24/18 08:26 Levofloxacin (Levaquin) 750 mg QODAY PO 01/24/18 09:00 01/24/18 08:26 Al Hydroxide/Mg Hydroxide (Mylanta Plus Xs) 15 ml PRN AFTMEALHC PRN PO DYSPEPSIA 01/24/18 06:15 Magnesium Hydroxide (Milk Of Magnesia) 2,400 mg PRN Q8HRS PRN PO CONSTIPATION 01/24/18 06:15 Metoprolol Succinate (Toprol Xl) 50 mg DAILY PO 01/24/18 09:00 Nicotine (Nicoderm Cq 21mg) 1 patch DAILY TD 01/24/18 09:00 01/24/18 08:27 Quetiapine Fumarate (SEROquel) 25 mg PRN TID PRN PO AGITATION 01/24/18 06:15 Sertraline HCl (Zoloft) 25 mg DAILY PO 01/24/18 09:00 01/24/18 08:26 Spironolactone (Aldactone) 25 mg DAILY PO 01/24/18 09:00 Torsemide (Demadex) 50 mg DAILY PO 01/24/18 09:00 Acetaminophen (Tylenol) 1,000 mg PRN Q8HRS PRN PO PAIN / TEMP 01/24/18 07:30 Methylprednisolone Sodium Succinate (SOLU-Medrol 125MG VIAL) 125 mg Q8HRS IV 01/24/18 08:00 01/24/18 14:13 Albuterol/ Ipratropium (Duoneb) 3 ml RTQID NEB 01/24/18 08:00 01/24/18 20:54 Albuterol Sulfate (Ventolin) 2.5 mg PRN Q2HR PRN NEB SHORTNESS OF BREATH 01/24/18 08:00 Artificial Tears (Refresh Classic) 1 drop BID OU 01/24/18 09:00 01/24/18 08:27 Albumin Human 50 ml @ 50 mls/hr 1X ONCE IV 01/24/18 12:00 01/24/18 12:59 DC 01/24/18 12:18 Furosemide 100 mg/ Sodium Chloride 100 ml @ 0 mls/hr CONT PRN IV PER PROTOCOL 01/24/18 12:00 01/24/18 12:34 Magnesium Sulfate 50 ml @ 25 mls/hr 1X ONCE IV 01/24/18 11:45 01/24/18 13:44 UNV Atorvastatin Calcium (Lipitor) 40 mg QHS PO 01/24/18 21:00 Warfarin Sodium (Coumadin Per Pharmacy) 1 each PRN DAILY PRN MC SEE COMMENTS 01/24/18 11:45 01/24/18 15:26 Magnesium Sulfate 100 ml @ 100 mls/hr Q1H IV 01/24/18 12:00 01/24/18 14:00 DC 01/24/18 13:18 Warfarin Sodium (Coumadin) 5 mg 1X WARF ONCE PO 01/24/18 16:00 01/24/18 16:01 DC 01/24/18 16:11 Insulin Human Lispro (HumaLOG) 0-9 UNITS TIDWMEALS SQ 01/24/18 17:00 01/24/18 16:35 Dextrose 12.5 gm PRN Q15MIN PRN IV SEE COMMENTS 01/24/18 16:30 Orders Procedure Category Date Status Time Fall Precautions JESSE 01/24/18 In Process 04:47 Rehab Screening (Pt, REHAB 01/25/18 Logged Ot, St) 07:00 Apply Santi Stockings JESSE 01/24/18 In Process And Zachary Wr 04:47 Pneumatic Compression JESSE 01/24/18 In Process Device 04:47 Fingerstick(Idi) JESSE 01/24/18 In Process 04:47 Admit Orders ADT 01/24/18 Transmitted Daily Weight JESSE 01/24/18 In Process 04:52 Protime LAB 01/24/18 Complete 09:00 Protime LAB 01/25/18 Verified 09:00 Protime LAB 01/26/18 Verified 09:00 [place]ian Diabetic DIET 01/24/18 Transmitted Assoc Diet Breakfast Mrsa By Pcr LAB 01/24/18 In Process 05:55 Acetaminophen PHA 01/24/18 Complete (Tylenol) 06:15 Cholecalciferol PHA 01/24/18 In Process (Vitamin D3) (Vitamin 09:00 Diltiazem Hcl PHA 01/24/18 In Process (Cardizem 24hr Cd) 09:00 Insulin Glargine PHA 01/24/18 In Process (Lantus) 09:00 Insulin Lispro PHA 01/24/18 Complete (Humalog) 07:30 Levothyroxine PHA 01/25/18 In Process (Synthroid) 06:00 Methyl PHA 01/24/18 In Process Salicylate/Menthol 06:15 Nystatin Topical PHA 01/24/18 In Process Powder (Nystop) 09:00 Potassium Chloride PHA 01/24/18 In Process Tab (Klor-Con) 09:00 Acetaminophen PHA 01/24/18 Complete (Tylenol) 07:30 Enoxaparin 120mg PHA 01/24/18 In Process Syringe (Lovenox 120mg 09:00 Lactobacillus PHA 01/24/18 In Process Rhamnosus Gg 09:00 Levofloxacin PHA 01/24/18 In Process (Levaquin) 09:00 Mag Hydrox/Al PHA 01/24/18 In Process Hydrox/Simeth 06:15 Magnesium Hydroxide PHA 01/24/18 In Process (Milk Of Magnesia) 06:15 Metoprolol Succ 24hr PHA 01/24/18 In Process Er (Toprol Xl) 09:00 Nicotine 21mg PHA 01/24/18 In Process (Nicoderm Cq 21mg) 09:00 Quetiapine (Seroquel) PHA 01/24/18 In Process 06:15 Sertraline (Zoloft) PHA 01/24/18 In Process 09:00 Spironolactone PHA 01/24/18 In Process (Aldactone) 09:00 Torsemide (Demadex) PHA 01/24/18 In Process 09:00 Acetaminophen PHA 01/24/18 In Process (Tylenol) 07:30 Simvastatin (Zocor) PHA 01/24/18 Complete 21:00 Consult Physician By CONS 01/24/18 Transmitted Name 07:56 Methylprednisolone PHA 01/24/18 In Process 125mg Vial (Solu-Medr 08:00 Ipratrpium/Albuterol PHA 01/24/18 In Process 0.5/2.5mg (Duoneb) 08:00 Airway Inhalation RT 01/24/18 Complete Treatment 07:56 Albuterol Sulfate PHA 01/24/18 In Process (Ventolin) 08:00 Airway Inhalation RT 01/24/18 Complete Treatment 07:56 Polyvinyl PHA 01/24/18 In Process Alcohol/Povidone/Pf 09:00 Cdif W/ Epi Pcr LAB 01/24/18 In Process 09:39 Pt Eval And Treat PT 01/24/18 Logged 10:36 Ot Eval And Treat OT 01/24/18 Logged 10:36 Echocardiogram ECHO 01/24/18 Resulted 11:24 Albumin Human 25% PHA 01/24/18 Complete (Albutein) 12:00 Furosemide Inj (Lasix) PHA 01/24/18 In Process 12:00 Troponin I LAB 01/24/18 Complete 11:24 12 Lead Ekg EKG 01/24/18 Complete 11:24 Atorvastatin Calcium PHA 01/24/18 In Process (Lipitor) 21:00 Warfarin Per Pharmacy PHA 01/24/18 In Process (Coumadin Per Phar 11:45 Magnesium Sulfate 1gm PHA 01/24/18 Complete (Magnesium Sulfate 12:00 Insert And Maintain JESSE 01/24/18 In Process Russell Cath 14:24 Warfarin (Coumadin) PHA 01/24/18 Complete 16:00 Glucose Poct Achs JESSE 01/24/18 In Process 16:25 Insulin Lispro PHA 01/24/18 In Process (Humalog) 17:00 Dextrose 50% PHA 01/24/18 In Process 16:30 Vital Signs Date Time Temp Pulse Resp B/P (MAP) Pulse Ox O2 Delivery O2 Flow Rate FiO2 01/24/18 20:55 98 Nasal Cannula 2.0 01/24/18 18:10 91 119/58 (78) 01/24/18 15:29 16 01/24/18 02:00 98.1 RAYMOND DAWKINS DO Jan 24, 2018 21:39
[2018-01-24] MEDS: ATORVASTATIN CALCIUM 20 MG TABLET PO SCH (21:44)
--- NOTE | 2018-01-24 22:37 | PDOC ---
Exam Note: Diomedes Note: Please also refer to the separate dictated note~for this date of service dictated separately.~Patient seen individually. Discussed the patient with Nursing staff reviewed the chart.~Reviewed interim history and current functioning. Reviewed vital signs,~Labs/ Radiology~and current medications noted below. Continue current treatment with the changes noted in the dictated addendum note Assessment: Vital Signs: Vital Signs Date Time Temp Pulse Resp B/P (MAP) Pulse Ox O2 Delivery O2 Flow Rate FiO2 01/24/18 20:55 98 Nasal Cannula 2.0 01/24/18 18:10 91 119/58 (78) 01/24/18 15:29 16 01/24/18 02:00 98.1 Labs: Laboratory Tests Test 01/24/18 07:44 01/24/18 10:00 01/24/18 11:47 01/24/18 12:01 Glucose (Fingerstick) 79 mg/dL (70-99) 112 mg/dL (70-99) H Prothrombin Time 14.4 SEC (9.4-11.4) H Prothrombin Time INR 1.5 (0.9-1.1) H Troponin I Quantitative < 0.017 ng/mL (0-0.055) Test 01/24/18 16:23 01/24/18 21:43 Glucose (Fingerstick) 215 mg/dL (70-99) H 233 mg/dL (70-99) H Current Medications: Meds: Current Medications Acetaminophen (Tylenol) 650 mg PRN Q6HRS PRN PO PAIN / TEMP; Start 01/24/18 at 06:15; Stop 01/24/18 at 07:21; Status DC Vitamin D (Vitamin D3) 2,000 unit BID PO Last administered on 01/24/18at 21:44; Start 01/24/18 at 09:00 Diltiazem HCl (Cardizem 24hr Cd) 240 mg DAILY PO ; Start 01/24/18 at 09:00 Insulin Glargine (Lantus) 23 units DAILY SQ Last administered on 01/24/18at 08: 33; Start 01/24/18 at 09:00 Insulin Human Lispro (HumaLOG) 3 units TIDAC SQ ; Start 01/24/18 at 07:30; Stop 01/24/18 at 16:27; Status DC Levothyroxine Sodium (Synthroid) 100 mcg DAILY06 PO ; Start 01/25/18 at 06:00 Multi-Ingredient Ointment (Analgesic May) 1 manjeet PRN QID PRN TP MUSCLE PAIN; Start 01/24/18 at 06:15 Nystatin (Nystop) 1 manjeet TID TP Last administered on 01/24/18at 21:45; Start at 09:00 Potassium Chloride (Klor-Con) 20 meq DAILY PO Last administered on 01/24/18at 08 :26; Start 01/24/18 at 09:00 Simvastatin (Zocor) 20 mg HS PO ; Start 01/24/18 at 21:00; Stop 01/24/18 at 21: 00; Status DC Acetaminophen (Tylenol) 500 mg PRN Q8HRS PRN PO PAIN / TEMP; Start 01/24/18 at 07:30; Stop 01/24/18 at 07:30; Status DC Artificial Tears (Artificial Tears) 1 drop BID OU ; Start 01/24/18 at 09:00; Status Cancel Enoxaparin Sodium (Lovenox 120mg Syringe) 110 mg BID SQ Last administered on at 21:45; Start 01/24/18 at 09:00 Lactobacillus Rhamnosus (Culturelle) 1 cap BID PO Last administered on at 21:44; Start 01/24/18 at 09:00 Levofloxacin (Levaquin) 750 mg QODAY PO Last administered on 01/24/18at 08:26; Start 01/24/18 at 09:00 Al Hydroxide/Mg Hydroxide (Mylanta Plus Xs) 15 ml PRN AFTMEALHC PRN PO DYSPEPSIA; Start 01/24/18 at 06:15 Magnesium Hydroxide (Milk Of Magnesia) 2,400 mg PRN Q8HRS PRN PO CONSTIPATION; Start 01/24/18 at 06:15 Metoprolol Succinate (Toprol Xl) 50 mg DAILY PO ; Start 01/24/18 at 09:00 Nicotine (Nicoderm Cq 21mg) 1 patch DAILY TD Last administered on 01/24/18at 08: 27; Start 01/24/18 at 09:00 Quetiapine Fumarate (SEROquel) 25 mg PRN TID PRN PO AGITATION; Start 01/24/18 at 06:15 Sertraline HCl (Zoloft) 25 mg DAILY PO Last administered on 01/24/18at 08:26; Start 01/24/18 at 09:00 Spironolactone (Aldactone) 25 mg DAILY PO ; Start 01/24/18 at 09:00 Torsemide (Demadex) 50 mg DAILY PO ; Start 01/24/18 at 09:00 Acetaminophen (Tylenol) 1,000 mg PRN Q8HRS PRN PO PAIN / TEMP; Start 01/24/18 at 07:30 Methylprednisolone Sodium Succinate (SOLU-Medrol 125MG VIAL) 125 mg Q8HRS IV Last administered on 01/24/18at 21:45; Start 01/24/18 at 08:00 Albuterol/ Ipratropium (Duoneb) 3 ml RTQID NEB Last administered on 01/24/18at 20:54; Start 01/24/18 at 08:00 Albuterol Sulfate (Ventolin) 2.5 mg PRN Q2HR PRN NEB SHORTNESS OF BREATH; Start 01/24/18 at 08:00 Artificial Tears (Refresh Classic) 1 drop BID OU Last administered on at 21:44; Start 01/24/18 at 09:00 Albumin Human 50 ml @ 50 mls/hr 1X ONCE IV Last administered on 01/24/18at 12: 18; Start 01/24/18 at 12:00; Stop 01/24/18 at 12:59; Status DC Furosemide 100 mg/ Sodium Chloride 100 ml @ 0 mls/hr CONT PRN IV PER PROTOCOL Last administered on 01/24/18at 12:34; Start 01/24/18 at 12:00 Magnesium Sulfate 50 ml @ 25 mls/hr 1X ONCE IV ; Start 01/24/18 at 11:45; Stop 01/24/18 at 13:44; Status UNV Atorvastatin Calcium (Lipitor) 40 mg QHS PO Last administered on 01/24/18at 21: 44; Start 01/24/18 at 21:00 Warfarin Sodium (Coumadin Per Pharmacy) 1 each PRN DAILY PRN MC SEE COMMENTS Last administered on 01/24/18at 15:26; Start 01/24/18 at 11:45 Magnesium Sulfate 100 ml @ 100 mls/hr Q1H IV Last administered on 01/24/18at 13 :18; Start 01/24/18 at 12:00; Stop 01/24/18 at 14:00; Status DC Warfarin Sodium (Coumadin) 5 mg 1X WARF ONCE PO Last administered on at 16:11; Start 01/24/18 at 16:00; Stop 01/24/18 at 16:01; Status DC Insulin Human Lispro (HumaLOG) 0-9 UNITS TIDWMEALS SQ Last administered on 01/24at 16:35; Start 01/24/18 at 17:00 Dextrose 12.5 gm PRN Q15MIN PRN IV SEE COMMENTS; Start 01/24/18 at 16:30 Active Scripts Active Reported Zoloft (Sertraline Hcl) 25 Mg Tablet 25 Mg PO DAILY NICODERM CQ 21mg (Nicotine) 1 Each Patch.td24 1 Patch TD DAILY Analgesic May (Methyl Salicylate/Menthol) 28 Gm Oint...g. 1 Manjeet TP PRN QID PRN Milk Of Magnesia (Magnesium Hydroxide) 2,400 Mg/10 Ml Oral.susp 2,400 Mg PO PRN Q8HRS PRN Advanced Antacid Liquid (Mag Hydrox/Al Hydrox/Simeth) 355 Ml Oral.susp 15 Ml PO PRN AFTMEALHC PRN Tylenol (Acetaminophen) 325 Mg Tablet 650 Mg PO PRN Q6HRS PRN Levaquin (Levofloxacin) 750 Mg Tablet 750 Mg PO EVERY 48 HOURS 4 Days Lovenox (Enoxaparin Sodium) 120 Mg/0.8 Ml Disp.syrin 120 Mg SQ DAILY Culturelle (Lactobacillus Rhamnosus Gg) 1 Each Capsule 1 Each PO BID Coumadin (Warfarin Sodium) 2.5 Mg Tablet 5 Mg PO DAILY16 Vitamin D3 (Cholecalciferol (Vitamin D3)) 1,000 Unit Tablet 2,000 Unit PO BID Torsemide 100 Mg Tablet 50 Mg PO DAILY Spironolactone 25 Mg Tablet 25 Mg PO DAILY Simvastatin 40 Mg Tablet 20 Mg PO HS Seroquel (Quetiapine Fumarate) 25 Mg Tablet 25 Mg PO PRN TID PRN Klor-Con M20 (Potassium Chloride) 20 Meq Tab.er.prt 20 Meq PO DAILY Nystatin 15 Gm Powder 1 Manjeet TP TID APPLY UNDER EACH BREAST Toprol Xl (Metoprolol Succinate) 50 Mg Tab.er.24h 50 Mg PO DAILY Levothyroxine Sodium 100 Mcg Tablet 100 Mcg PO DAILY06 Lantus Solostar (Insulin Glargine,Hum.rec.anlog) 100 Unit/1 Ml Insuln.pen 23 Unit SQ DAILY Humalog (Insulin Lispro) 100 Unit/1 Ml Insuln.pen 3 Unit SQ TIDAC Cardizem Cd (Diltiazem Hcl) 240 Mg Cap.er.24h 240 Mg PO DAILY Artificial Tears Eye Drops (Dextran 70/Hypromellose) 15 Ml Drops 1 Drop EACHEYE BID Acetaminophen 500 Mg Tablet 1,000 Mg PO PRN Q8HRS PRN I have reviewed the current psychotropics carefully including drug interactions. Risk benefit ratio favors no change other than as noted in my dictated progress note. Diagnosis: Problems: (1) Major depressive disorder, recurrent episode (2) Anxiety disorder (3) Impulse control disorder (4) Psychotic depression (5) Atrial fibrillation JAZMINE KILLIAN MD Jan 24, 2018 22:37
[2018-01-24] MEDS: ACETAMINOPHEN 500 MG TABLET PO PRN (23:10)
[2018-01-25] VITALS (11 sets, daily range): BP systolic 111–154; BP diastolic 63–79
[2018-01-25] MEDS: IPRATRPIUM/ALBUTEROL 0.5/2.5MG 3 ML NEBU. NEB SCH ×4 (04:36→19:37)
[2018-01-25] MEDS: LEVOTHYROXINE 100 MCG TABLET PO SCH (06:48)
[2018-01-25] MEDS: methylPREDNISolone SOD SUCC PF 125 MG/2 ML VIAL. IV SCH ×3 (06:48→22:38)
[2018-01-25] MEDS: NICOTINE 21MG PATCH. TD SCH (08:07)
[2018-01-25] MEDS: CHOLECALCIFEROL (VITAMIN D3) 1,000 UNIT TABLET PO SCH ×2 (08:07→21:21)
[2018-01-25] MEDS: ENOXAPARIN ** NOTE DOSE ** SYRINGE SQ SCH ×2 (08:07→21:20)
[2018-01-25] MEDS: POTASSIUM CHLORIDE 20 MEQ TABLET.ER. PO SCH (08:08)
[2018-01-25] MEDS: SERTRALINE 25 MG TABLET. PO SCH (08:08)
[2018-01-25] MEDS: TORSEMIDE 20 MG TABLET. PO SCH ×2 (08:08→09:00)
[2018-01-25] MEDS: LACTOBACILLUS RHAMNOSUS GG 1 CAPSULE. PO SCH ×2 (08:08→21:21)
[2018-01-25] MEDS: SPIRONOLACTONE 25 MG TABLET PO SCH ×2 (08:09→10:42)
[2018-01-25] MEDS: POLYVINYL ALCOHOL/POVIDONE/PF OPHTH SOLUTION DROPERETTE. OU SCH ×2 (08:09→21:32)
[2018-01-25] MEDS: METOPROLOL SUCC 24HR ER 50 MG TAB.ER.24H. PO SCH (08:10)
[2018-01-25] MEDS: INSULIN LISPRO 300 UNITS/3 ML INSULN.PEN. SQ SCH ×3 (08:12→17:16)
[2018-01-25] MEDS: INSULIN GLARGINE 300 UNITS/3 ML INSULN.PEN. SQ SCH (08:13)
[2018-01-25] MEDS: NYSTATIN TOPICAL POWDER 15GM BOTTLE. TP SCH ×3 (09:00→21:20)
--- NOTE | 2018-01-25 09:08 | PDOC ---
PROGRESS NOTES Assessment 1. acute on chronic diastolic heart failure - < 1liter output over last 24 hours with lasix drip. Albumin x 1 today and increase lasix gtt to 3mg /hour. Monitor Cr closely as she is 1.9 today (up from 1.7, admit Cr 2.0). 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 2. hypotension - pressure now WNL however has developed mild bradycardia. Will decrease dosage of CCB/beta casimiro and continue to monitor blood pressures. 3. atrial fibrillation, permanent with slow ventricular response and frequent 2 second R-R intervals. decrease CCB/BB dosage and monitor. Warfarin for stroke prophylaxis. 4. UTI / recent cellulitis- mgmt per IM 5. CKD - monitor closely BUN, Cr with diuresis. Cr on admission 2.0. yesterday 1.7, up to 1.9 today. Subjective c/o cough with difficulty expectorating, denies chest pain, reports improved breathing when up in chair. c/p increased pain / swelling in legs with elevation or compression hose, has been intermittently confused. Objective tele - atrial fibrillation with CVR, frequent episodes of HR<50 with 2.0 second R-R episodes. Echo The left ventricular systolic function is normal. The Ejection Fraction is 55-60%. There is normal LV segmental wall motion. Mild mitral regurgitation. Trace tricuspid regurgitation. The PA pressure was estimated at 48 mmHg. There is no evidence of significant pericardial effusion. Vital Signs Date Time Temp Pulse Resp B/P (MAP) Pulse Ox O2 Delivery O2 Flow Rate FiO2 01/25/18 08:10 84 01/25/18 04:37 96 Nasal Cannula 1.0 01/25/18 04:28 18 01/25/18 03:06 137/79 (98) 01/24/18 02:00 98.1 Intake and Output 01/25/18 07:00 Intake Total 1920 ml Output Total 600 ml Balance 1320 ml Intake Oral 1920 ml Output Urine Total 600 ml # Voids 1 # Bowel Movements 2 Abdomen: Normal bowel sounds, Soft, No tenderness Heart: Other (IRR, no gallops, clicks or rubs) Extremities: Other (+1-2 edema with skin changes consistent with chronic venous stasis) General: Alert, Cooperative, No acute distress Lungs: Other (coarse rhonchi, upper airway rhonchi, basilar crackles) Neuro: Normal speech Psych/Mental Status: Mood NL Review of Relevant I have reviewed the following items jesús (where applicable) has been applied. Labs Laboratory Tests Test 01/24/18 05:30 01/24/18 07:44 01/24/18 09:38 01/24/18 10:00 Nasal Screen MRSA (PCR) Negative (Negative) Glucose (Fingerstick) 79 mg/dL (70-99) Clostridium difficile Toxin (PCR) Negative (Negative) Prothrombin Time 14.4 SEC (9.4-11.4) Prothromb Time International Ratio 1.5 (0.9-1.1) Test 01/24/18 11:47 01/24/18 12:01 01/24/18 16:23 01/24/18 21:43 Glucose (Fingerstick) 112 mg/dL (70-99) 215 mg/dL (70-99) 233 mg/dL (70-99) Troponin I Quantitative < 0.017 ng/mL (0-0.055) Medications Current Medications Acetaminophen (Tylenol) 650 mg PRN Q6HRS PRN PO PAIN / TEMP; Start 01/24/18 at 06:15; Stop 01/24/18 at 07:21; Status DC Vitamin D (Vitamin D3) 2,000 unit BID PO Last administered on 01/25/18at 08:07; Start 01/24/18 at 09:00 Diltiazem HCl (Cardizem 24hr Cd) 240 mg DAILY PO Last administered on at 08:08; Start 01/24/18 at 09:00 Insulin Glargine (Lantus) 23 units DAILY SQ Last administered on 01/25/18at 08: 13; Start 01/24/18 at 09:00 Insulin Human Lispro (HumaLOG) 3 units TIDAC SQ ; Start 01/24/18 at 07:30; Stop 01/24/18 at 16:27; Status DC Levothyroxine Sodium (Synthroid) 100 mcg DAILY06 PO Last administered on at 06:48; Start 01/25/18 at 06:00 Multi-Ingredient Ointment (Analgesic [place]) 1 manjeet PRN QID PRN TP MUSCLE PAIN; Start 01/24/18 at 06:15 Nystatin (Nystop) 1 manjeet TID TP Last administered on 01/24/18at 21:45; Start at 09:00 Potassium Chloride (Klor-Con) 20 meq DAILY PO Last administered on 01/25/18 08 :08; Start 01/24/18 at 09:00 Simvastatin (Zocor) 20 mg HS PO ; Start 01/24/18 at 21:00; Stop 01/24/18 at 21: 00; Status DC Acetaminophen (Tylenol) 500 mg PRN Q8HRS PRN PO PAIN / TEMP; Start 01/24/18 at 07:30; Stop 01/24/18 at 07:30; Status DC Artificial Tears (Artificial Tears) 1 drop BID OU ; Start 01/24/18 at 09:00; Status Cancel Enoxaparin Sodium (Lovenox 120mg Syringe) 110 mg BID SQ Last administered on at 08:07; Start 01/24/18 at 09:00 Lactobacillus Rhamnosus (Culturelle) 1 cap BID PO Last administered on at 08:08; Start 01/24/18 at 09:00 Levofloxacin (Levaquin) 750 mg QODAY PO Last administered on 01/24/18at 08:26; Start 01/24/18 at 09:00 Al Hydroxide/Mg Hydroxide (Mylanta Plus Xs) 15 ml PRN AFTMEALHC PRN PO DYSPEPSIA; Start 01/24/18 at 06:15 Magnesium Hydroxide (Milk Of Magnesia) 2,400 mg PRN Q8HRS PRN PO CONSTIPATION; Start 01/24/18 at 06:15 Metoprolol Succinate (Toprol Xl) 50 mg DAILY PO Last administered on 01/25/18at 08:10; Start 01/24/18 at 09:00 Nicotine (Nicoderm Cq 21mg) 1 patch DAILY TD Last administered on 01/25/18at 08: 07; Start 01/24/18 at 09:00 Quetiapine Fumarate (SEROquel) 25 mg PRN TID PRN PO AGITATION; Start 01/24/18 at 06:15 Sertraline HCl (Zoloft) 25 mg DAILY PO Last administered on 01/25/18at 08:08; Start 01/24/18 at 09:00 Spironolactone (Aldactone) 25 mg DAILY PO Last administered on 9/25/18at 08:09 ; Start 01/24/18 at 09:00 Torsemide (Demadex) 50 mg DAILY PO Last administered on 01/25/18at 08:08; Start 01/24/18 at 09:00 Acetaminophen (Tylenol) 1,000 mg PRN Q8HRS PRN PO PAIN / TEMP Last administered on 01/24/18at 23:10; Start 01/24/18 at 07:30 Methylprednisolone Sodium Succinate (SOLU-Medrol 125MG VIAL) 125 mg Q8HRS IV Last administered on 01/25/18at 06:48; Start 01/24/18 at 08:00 Albuterol/ Ipratropium (Duoneb) 3 ml RTQID NEB Last administered on 01/25/18at 04:36; Start 01/24/18 at 08:00 Albuterol Sulfate (Ventolin) 2.5 mg PRN Q2HR PRN NEB SHORTNESS OF BREATH; Start 01/24/18 at 08:00 Artificial Tears (Refresh Classic) 1 drop BID OU Last administered on at 08:09; Start 01/24/18 at 09:00 Albumin Human 50 ml @ 50 mls/hr 1X ONCE IV Last administered on 01/24/18at 12: 18; Start 01/24/18 at 12:00; Stop 01/24/18 at 12:59; Status DC Furosemide 100 mg/ Sodium Chloride 100 ml @ 0 mls/hr CONT PRN IV PER PROTOCOL Last administered on 01/24/18at 12:34; Start 01/24/18 at 12:00 Magnesium Sulfate 50 ml @ 25 mls/hr 1X ONCE IV ; Start 01/24/18 at 11:45; Stop 01/24/18 at 13:44; Status UNV Atorvastatin Calcium (Lipitor) 40 mg QHS PO Last administered on 01/24/18at 21: 44; Start 01/24/18 at 21:00 Warfarin Sodium (Coumadin Per Pharmacy) 1 each PRN DAILY PRN MC SEE COMMENTS Last administered on 01/24/18at 15:26; Start 01/24/18 at 11:45 Magnesium Sulfate 100 ml @ 100 mls/hr Q1H IV Last administered on 01/24/18at 13 :18; Start 01/24/18 at 12:00; Stop 01/24/18 at 14:00; Status DC Warfarin Sodium (Coumadin) 5 mg 1X WARF ONCE PO Last administered on at 16:11; Start 01/24/18 at 16:00; Stop 01/24/18 at 16:01; Status DC Insulin Human Lispro (HumaLOG) 0-9 UNITS TIDWMEALS SQ Last administered on 01/25at 08:12; Start 01/24/18 at 17:00 Dextrose 12.5 gm PRN Q15MIN PRN IV SEE COMMENTS; Start 01/24/18 at 16:30 Active Scripts Active Reported Zoloft (Sertraline Hcl) 25 Mg Tablet 25 Mg PO DAILY NICODERM CQ 21mg (Nicotine) 1 Each Patch.td24 1 Patch TD DAILY Analgesic [place] (Methyl Salicylate/Menthol) 28 Gm Oint...g. 1 Manjeet TP PRN QID PRN Milk Of Magnesia (Magnesium Hydroxide) 2,400 Mg/10 Ml Oral.susp 2,400 Mg PO PRN Q8HRS PRN Advanced Antacid Liquid (Mag Hydrox/Al Hydrox/Simeth) 355 Ml Oral.susp 15 Ml PO PRN AFTMEALHC PRN Tylenol (Acetaminophen) 325 Mg Tablet 650 Mg PO PRN Q6HRS PRN Levaquin (Levofloxacin) 750 Mg Tablet 750 Mg PO EVERY 48 HOURS 4 Days Lovenox (Enoxaparin Sodium) 120 Mg/0.8 Ml Disp.syrin 120 Mg SQ DAILY Culturelle (Lactobacillus Rhamnosus Gg) 1 Each Capsule 1 Each PO BID Coumadin (Warfarin Sodium) 2.5 Mg Tablet 5 Mg PO DAILY16 Vitamin D3 (Cholecalciferol (Vitamin D3)) 1,000 Unit Tablet 2,000 Unit PO BID Torsemide 100 Mg Tablet 50 Mg PO DAILY Spironolactone 25 Mg Tablet 25 Mg PO DAILY Simvastatin 40 Mg Tablet 20 Mg PO HS Seroquel (Quetiapine Fumarate) 25 Mg Tablet 25 Mg PO PRN TID PRN Klor-Con M20 (Potassium Chloride) 20 Meq Tab.er.prt 20 Meq PO DAILY Nystatin 15 Gm Powder 1 Manjeet TP TID APPLY UNDER EACH BREAST Toprol Xl (Metoprolol Succinate) 50 Mg Tab.er.24h 50 Mg PO DAILY Levothyroxine Sodium 100 Mcg Tablet 100 Mcg PO DAILY06 Lantus Solostar (Insulin Glargine,Hum.rec.anlog) 100 Unit/1 Ml Insuln.pen 23 Unit SQ DAILY Humalog (Insulin Lispro) 100 Unit/1 Ml Insuln.pen 3 Unit SQ TIDAC Cardizem Cd (Diltiazem Hcl) 240 Mg Cap.er.24h 240 Mg PO DAILY Artificial Tears Eye Drops (Dextran 70/Hypromellose) 15 Ml Drops 1 Drop EACHEYE BID Acetaminophen 500 Mg Tablet 1,000 Mg PO PRN Q8HRS PRN Vitals/I & O Vital Sign - Last 24 Hours 01/24/18 01/24/18 01/24/18 01/24/18 10:16 12:00 12:42 13:40 Pulse 78 86 83 Resp 14 14 B/P (MAP) 141/60 (87) 118/73 (88) 92/57 (69) Pulse Ox 96 93 95 O2 Delivery Nasal Cannula Nasal Cannula Nasal Cannula Nasal Cannula O2 Flow Rate 2.0 2.0 2.0 2.0 01/24/18 01/24/18 01/24/18 01/24/18 15:29 15:57 16:00 16:29 Pulse 85 77 Resp 16 B/P (MAP) 105/70 (82) 78/60 (66) Pulse Ox 96 98 96 O2 Delivery Nasal Cannula Nasal Cannula Nasal Cannula Nasal Cannula O2 Flow Rate 2.0 2.0 2.0 2.0 01/24/18 01/24/18 01/24/18 01/24/18 18:10 19:00 20:00 20:00 Pulse 91 82 90 Resp 16 19 B/P (MAP) 119/58 (78) 149/95 (113) 119/76 (90) Pulse Ox 95 95 97 O2 Delivery Nasal Cannula Nasal Cannula Nasal Cannula Nasal Cannula O2 Flow Rate 2.0 2.0 2.0 2.0 01/24/18 01/24/18 01/24/18 01/24/18 20:55 21:00 22:00 23:00 Pulse 86 88 86 Resp 14 10 15 B/P (MAP) 135/61 (85) 100/71 (81) 165/83 (110) Pulse Ox 98 92 96 94 O2 Delivery Nasal Cannula Nasal Cannula Nasal Cannula Nasal Cannula O2 Flow Rate 2.0 2.0 2.0 2.0 01/24/18 01/25/18 01/25/18 01/25/18 23:59 00:06 00:06 02:06 Pulse 78 80 Resp 12 21 B/P (MAP) 153/79 (103) 123/79 (94) Pulse Ox 95 97 O2 Delivery Nasal Cannula Nasal Cannula Nasal Cannula Nasal Cannula O2 Flow Rate 2.0 2.0 2.0 01/25/18 01/25/18 01/25/18 01/25/18 03:06 04:00 04:28 04:37 Pulse 89 88 Resp 21 18 B/P (MAP) 137/79 (98) Pulse Ox 98 95 96 O2 Delivery Nasal Cannula Nasal Cannula Nasal Cannula Nasal Cannula O2 Flow Rate 2.0 2.0 2.0 1.0 01/25/18 01/25/18 08:08 08:10 Pulse 77 84 Intake and Output 01/24/18 01/24/18 01/25/18 15:00 23:00 07:00 Intake Total 700 ml 420 ml 800 ml Output Total 250 ml 350 ml Balance 700 ml 170 ml 450 ml NICOLE RANKIN APRN Jan 25, 2018 09:08
[2018-01-25] MEDS ORDERED: ALBUMIN HUMAN 25% 50 ML IV ONE (11:00)
[2018-01-25 11:12] LABS: BASO # 0.1 x10^3/uL (0.0-0.2); BASO % 1 % (0-3); EOS % 0 % (0-3); HEMATOCRIT 42.5 % (36.0-47.0); HEMOGLOBIN 13.8 g/dL (12.0-15.5); LYMPH # 1.1 x10^3/uL (1.0-4.8); LYMPH % 10 % (24-48); MEAN CORPUSCULAR HEMOGLOBIN 30 pg (25-35); MEAN CORPUSCULAR HGB CONC 33 g/dL (31-37); MEAN CORPUSCULAR VOLUME 91 fL (79-100); MONO # 0.2 x10^3/uL (0.0-1.1); MONO % 2 % (0-9); NEUT # 9.6 x10^3uL (1.8-7.7); NEUT % 87 % (31-73); PLATELET COUNT 157 x10^3/uL (140-400); RED BLOOD COUNT 4.67 x10^6/uL (3.50-5.40); RED CELL DISTRIBUTION WIDTH 17.7 % (11.5-14.5); WHITE BLOOD COUNT 11.1 x10^3/uL (4.0-11.0)
[2018-01-25 11:27] LABS: ALBUMIN 2.3 g/dL (3.4-5.0); ALBUMIN/GLOBULIN RATIO 0.5 (1.0-1.7); CALCIUM 8.7 mg/dL (8.5-10.1); CREATININE 1.9 mg/dL (0.6-1.0); POTASSIUM 4.4 mmol/L (3.5-5.1); TOTAL BILIRUBIN 0.3 mg/dL (0.2-1.0); TOTAL PROTEIN 7.2 g/dL (6.4-8.2)
[2018-01-25] MEDS ORDERED: WARFARIN 5 MG TABLET. PO ONE (16:00)
--- NOTE | 2018-01-25 16:03 | PDOC ---
SUBJECTIVE: Patient breathing better today, able to eat without stopping to catch her breath. Still with some conversational dyspnea and violent coughing, audible chest rattle. Still has to sit upright to breathe says she cannot tolerate elevating legs or NELSON hose. Diuresing adequately maintaining pressure management per Cardio. She denies any new complaints says she's breathing better doesn't like fluid restriction. Periods of confusion OBJECTIVE: Vital Signs: Vital Signs Date Time Temp Pulse Resp B/P (MAP) Pulse Ox O2 Delivery O2 Flow Rate FiO2 01/25/18 13:10 98.2 72 18 154/73 (100) 96 Nasal Cannula 2.0 I & O Intake and Output 01/25/18 07:00 Intake Total 1920 ml Output Total 600 ml Balance 1320 ml Intake Oral 1920 ml Output Urine Total 600 ml # Voids 1 # Bowel Movements 2 Labs: Laboratory Tests Test 01/24/18 05:30 01/24/18 07:44 01/24/18 09:38 01/24/18 10:00 Nasal Screen MRSA (PCR) Negative (Negative) Glucose (Fingerstick) 79 mg/dL (70-99) Clostridium difficile Toxin (PCR) Negative (Negative) Prothrombin Time 14.4 SEC (9.4-11.4) Prothromb Time International Ratio 1.5 (0.9-1.1) Test 01/24/18 11:47 01/24/18 12:01 01/24/18 16:23 01/24/18 21:43 Glucose (Fingerstick) 112 mg/dL (70-99) 215 mg/dL (70-99) 233 mg/dL (70-99) Troponin I Quantitative < 0.017 ng/mL (0-0.055) Test 01/25/18 11:03 01/25/18 12:18 White Blood Count 11.1 x10^3/uL (4.0-11.0) Red Blood Count 4.67 x10^6/uL (3.50-5.40) Hemoglobin 13.8 g/dL (12.0-15.5) Hematocrit 42.5 % (36.0-47.0) Mean Corpuscular Volume 91 fL (79-100) Mean Corpuscular Hemoglobin 30 pg (25-35) Mean Corpuscular Hemoglobin Concent 33 g/dL (31-37) Red Cell Distribution Width 17.7 % (11.5-14.5) Platelet Count 157 x10^3/uL (140-400) Neutrophils (%) (Auto) 87 % (31-73) Lymphocytes (%) (Auto) 10 % (24-48) Monocytes (%) (Auto) 2 % (0-9) Eosinophils (%) (Auto) 0 % (0-3) Basophils (%) (Auto) 1 % (0-3) Neutrophils # (Auto) 9.6 x10^3uL (1.8-7.7) Lymphocytes # (Auto) 1.1 x10^3/uL (1.0-4.8) Monocytes # (Auto) 0.2 x10^3/uL (0.0-1.1) Eosinophils # (Auto) 0.0 x10^3/uL (0.0-0.7) Basophils # (Auto) 0.1 x10^3/uL (0.0-0.2) Prothrombin Time 18.1 SEC (9.4-11.4) Prothromb Time International Ratio 1.9 (0.9-1.1) Sodium Level 137 mmol/L (136-145) Potassium Level 4.4 mmol/L (3.5-5.1) Chloride Level 101 mmol/L (98-107) Carbon Dioxide Level 28 mmol/L (21-32) Anion Gap 8 (6-14) Blood Urea Nitrogen 28 mg/dL (7-20) Creatinine 1.9 mg/dL (0.6-1.0) Estimated GFR (Cockcroft-Gault) 26.0 BUN/Creatinine Ratio 15 (6-20) Glucose Level 316 mg/dL (70-99) Calcium Level 8.7 mg/dL (8.5-10.1) Total Bilirubin 0.3 mg/dL (0.2-1.0) Aspartate Amino Transf (AST/SGOT) 20 U/L (15-37) Alanine Aminotransferase (ALT/SGPT) 25 U/L (14-59) Alkaline Phosphatase 63 U/L (46-116) Total Protein 7.2 g/dL (6.4-8.2) Albumin 2.3 g/dL (3.4-5.0) Albumin/Globulin Ratio 0.5 (1.0-1.7) Glucose (Fingerstick) 290 mg/dL (70-99) Physical Exam: GEN: conversational dyspnea with coughing outbursts HEENT: NCAT, oral mucosa moist Neck: supple, nontender Pulm: rales b/l decreased at bases poor air movement CVS: S1S2 no murmur Neuro: alert, no lateralizing neurodef Ext: 3+ pitting, stasis changes ASSESSMENT: 1. acute on chronic diastolic heart failure - < 1liter output over last 24 hours with lasix drip. 2. hypotension - pressure now WNL per Cardio 3. atrial fibrillation, permanent with slow ventricular response Warfarin for stroke prophylaxis. 4. UTI / recent cellulitis- cont levaquin await C/S 5. CKD - monitor closely BUN, Cr with diuresis. Cr on admission 2.0. yesterday 1.7, up to 1.9 today. RAYMOND DAWKINS DO Jan 25, 2018 16:03
--- NOTE | 2018-01-25 18:45 | PDOC ---
Exam Note: Diomedes Note: Please also refer to the separate dictated note~for this date of service dictated separately.~Patient seen individually. Discussed the patient with Nursing staff reviewed the chart.~Reviewed interim history and current functioning. Reviewed vital signs,~Labs/ Radiology~and current medications noted below. Continue current treatment with the changes noted in the dictated addendum note Assessment: Vital Signs: Vital Signs Date Time Temp Pulse Resp B/P (MAP) Pulse Ox O2 Delivery O2 Flow Rate FiO2 01/25/18 17:06 67 18 111/67 (82) 96 Nasal Cannula 2.0 01/25/18 13:10 98.2 I&O Intake and Output 01/25/18 07:00 Intake Total 1920 ml Output Total 600 ml Balance 1320 ml Intake Oral 1920 ml Output Urine Total 600 ml # Voids 1 # Bowel Movements 2 Labs: Laboratory Tests Test 01/24/18 21:43 01/25/18 11:03 01/25/18 12:18 Glucose (Fingerstick) 233 mg/dL (70-99) H 290 mg/dL (70-99) H White Blood Count 11.1 x10^3/uL (4.0-11.0) H Red Blood Count 4.67 x10^6/uL (3.50-5.40) Hemoglobin 13.8 g/dL (12.0-15.5) Hematocrit 42.5 % (36.0-47.0) Mean Corpuscular Volume 91 fL (79-100) Mean Corpuscular Hemoglobin 30 pg (25-35) Mean Corpuscular Hemoglobin Concent 33 g/dL (31-37) Red Cell Distribution Width 17.7 % (11.5-14.5) H Platelet Count 157 x10^3/uL (140-400) Neutrophils (%) (Auto) 87 % (31-73) H Lymphocytes (%) (Auto) 10 % (24-48) L Monocytes (%) (Auto) 2 % (0-9) Eosinophils (%) (Auto) 0 % (0-3) Basophils (%) (Auto) 1 % (0-3) Neutrophils # (Auto) 9.6 x10^3uL (1.8-7.7) H Lymphocytes # (Auto) 1.1 x10^3/uL (1.0-4.8) Monocytes # (Auto) 0.2 x10^3/uL (0.0-1.1) Eosinophils # (Auto) 0.0 x10^3/uL (0.0-0.7) Basophils # (Auto) 0.1 x10^3/uL (0.0-0.2) Prothrombin Time 18.1 SEC (9.4-11.4) H Prothrombin Time INR 1.9 (0.9-1.1) H Sodium Level 137 mmol/L (136-145) Potassium Level 4.4 mmol/L (3.5-5.1) Chloride Level 101 mmol/L (98-107) Carbon Dioxide Level 28 mmol/L (21-32) Anion Gap 8 (6-14) Blood Urea Nitrogen 28 mg/dL (7-20) H Creatinine 1.9 mg/dL (0.6-1.0) H Estimated GFR (Cockcroft-Gault) 26.0 BUN/Creatinine Ratio 15 (6-20) Glucose Level 316 mg/dL (70-99) H Calcium Level 8.7 mg/dL (8.5-10.1) Total Bilirubin 0.3 mg/dL (0.2-1.0) Aspartate Amino Transferase (AST) 20 U/L (15-37) Alanine Aminotransferase (ALT) 25 U/L (14-59) Alkaline Phosphatase 63 U/L (46-116) Total Protein 7.2 g/dL (6.4-8.2) Albumin 2.3 g/dL (3.4-5.0) L Albumin/Globulin Ratio 0.5 (1.0-1.7) L Current Medications: Meds: Current Medications Acetaminophen (Tylenol) 650 mg PRN Q6HRS PRN PO PAIN / TEMP; Start 01/24/18 at 06:15; Stop 01/24/18 at 07:21; Status DC Vitamin D (Vitamin D3) 2,000 unit BID PO Last administered on 01/25/18 08:07; Start 01/24/18 at 09:00 Diltiazem HCl (Cardizem 24hr Cd) 240 mg DAILY PO Last administered on at 08:08; Start 01/24/18 at 09:00 Insulin Glargine (Lantus) 23 units DAILY SQ Last administered on 01/25/18at 08: 13; Start 01/24/18 at 09:00 Insulin Human Lispro (HumaLOG) 3 units TIDAC SQ ; Start 01/24/18 at 07:30; Stop 01/24/18 at 16:27; Status DC Levothyroxine Sodium (Synthroid) 100 mcg DAILY06 PO Last administered on at 06:48; Start 01/25/18 at 06:00 Multi-Ingredient Ointment (Analgesic [place]) 1 manjeet PRN QID PRN TP MUSCLE PAIN; Start 01/24/18 at 06:15 Nystatin (Nystop) 1 manjeet TID TP Last administered on 01/25/18at 17:16; Start at 09:00 Potassium Chloride (Klor-Con) 20 meq DAILY PO Last administered on 01/25/18at 08 :08; Start 01/24/18 at 09:00 Simvastatin (Zocor) 20 mg HS PO ; Start 01/24/18 at 21:00; Stop 01/24/18 at 21: 00; Status DC Acetaminophen (Tylenol) 500 mg PRN Q8HRS PRN PO PAIN / TEMP; Start 01/24/18 at 07:30; Stop 01/24/18 at 07:30; Status DC Artificial Tears (Artificial Tears) 1 drop BID OU ; Start 01/24/18 at 09:00; Status Cancel Enoxaparin Sodium (Lovenox 120mg Syringe) 110 mg BID SQ Last administered on at 08:07; Start 01/24/18 at 09:00 Lactobacillus Rhamnosus (Culturelle) 1 cap BID PO Last administered on at 08:08; Start 01/24/18 at 09:00 Levofloxacin (Levaquin) 750 mg QODAY PO Last administered on 01/24/18at 08:26; Start 01/24/18 at 09:00 Al Hydroxide/Mg Hydroxide (Mylanta Plus Xs) 15 ml PRN AFTMEALHC PRN PO DYSPEPSIA; Start 01/24/18 at 06:15 Magnesium Hydroxide (Milk Of Magnesia) 2,400 mg PRN Q8HRS PRN PO CONSTIPATION; Start 01/24/18 at 06:15 Metoprolol Succinate (Toprol Xl) 50 mg DAILY PO Last administered on 01/25/18at 08:10; Start 01/24/18 at 09:00 Nicotine (Nicoderm Cq 21mg) 1 patch DAILY TD Last administered on 01/25/18at 08: 07; Start 01/24/18 at 09:00 Quetiapine Fumarate (SEROquel) 25 mg PRN TID PRN PO AGITATION; Start 01/24/18 at 06:15 Sertraline HCl (Zoloft) 25 mg DAILY PO Last administered on 01/25/18at 08:08; Start 01/24/18 at 09:00 Spironolactone (Aldactone) 25 mg DAILY PO Last administered on 01/25/18 08:09 ; Start 01/24/18 at 09:00 Torsemide (Demadex) 50 mg DAILY PO ; Start 01/24/18 at 09:00 Acetaminophen (Tylenol) 1,000 mg PRN Q8HRS PRN PO PAIN / TEMP Last administered on 01/24/18at 23:10; Start 01/24/18 at 07:30 Methylprednisolone Sodium Succinate (SOLU-Medrol 125MG VIAL) 125 mg Q8HRS IV Last administered on 01/25/18at 17:15; Start 01/24/18 at 08:00 Albuterol/ Ipratropium (Duoneb) 3 ml RTQID NEB Last administered on 01/25/18at 16:08; Start 01/24/18 at 08:00 Albuterol Sulfate (Ventolin) 2.5 mg PRN Q2HR PRN NEB SHORTNESS OF BREATH; Start 01/24/18 at 08:00 Artificial Tears (Refresh Classic) 1 drop BID OU Last administered on at 08:09; Start 01/24/18 at 09:00 Albumin Human 50 ml @ 50 mls/hr 1X ONCE IV Last administered on 01/24/18at 12: 18; Start 01/24/18 at 12:00; Stop 01/24/18 at 12:59; Status DC Furosemide 100 mg/ Sodium Chloride 100 ml @ 0 mls/hr CONT PRN IV PER PROTOCOL Last administered on 01/24/18at 12:34; Start 01/24/18 at 12:00 Magnesium Sulfate 50 ml @ 25 mls/hr 1X ONCE IV ; Start 01/24/18 at 11:45; Stop 01/24/18 at 13:44; Status UNV Atorvastatin Calcium (Lipitor) 40 mg QHS PO Last administered on 01/24/18at 21: 44; Start 01/24/18 at 21:00 Warfarin Sodium (Coumadin Per Pharmacy) 1 each PRN DAILY PRN MC SEE COMMENTS Last administered on 01/24/18at 15:26; Start 01/24/18 at 11:45 Magnesium Sulfate 100 ml @ 100 mls/hr Q1H IV Last administered on 01/24/18at 13 :18; Start 01/24/18 at 12:00; Stop 01/24/18 at 14:00; Status DC Warfarin Sodium (Coumadin) 5 mg 1X WARF ONCE PO Last administered on at 16:11; Start 01/24/18 at 16:00; Stop 01/24/18 at 16:01; Status DC Insulin Human Lispro (HumaLOG) 0-9 UNITS TIDWMEALS SQ Last administered on 01/25at 17:16; Start 01/24/18 at 17:00 Dextrose 12.5 gm PRN Q15MIN PRN IV SEE COMMENTS; Start 01/24/18 at 16:30 Albumin Human 50 ml @ 50 mls/hr 1X ONCE IV Last administered on 01/25/18at 12: 35; Start 01/25/18 at 11:00; Stop 01/25/18 at 11:59; Status DC Warfarin Sodium (Coumadin) 5 mg 1X WARF ONCE PO Last administered on at 17:16; Start 01/25/18 at 16:00; Stop 01/25/18 at 16:01; Status DC Active Scripts Active Reported Zoloft (Sertraline Hcl) 25 Mg Tablet 25 Mg PO DAILY NICODERM CQ 21mg (Nicotine) 1 Each Patch.td24 1 Patch TD DAILY Analgesic [place] (Methyl Salicylate/Menthol) 28 Gm Oint...g. 1 Manjeet TP PRN QID PRN Milk Of Magnesia (Magnesium Hydroxide) 2,400 Mg/10 Ml Oral.susp 2,400 Mg PO PRN Q8HRS PRN Advanced Antacid Liquid (Mag Hydrox/Al Hydrox/Simeth) 355 Ml Oral.susp 15 Ml PO PRN AFTMEALHC PRN Tylenol (Acetaminophen) 325 Mg Tablet 650 Mg PO PRN Q6HRS PRN Levaquin (Levofloxacin) 750 Mg Tablet 750 Mg PO EVERY 48 HOURS 4 Days Lovenox (Enoxaparin Sodium) 120 Mg/0.8 Ml Disp.syrin 120 Mg SQ DAILY Culturelle (Lactobacillus Rhamnosus Gg) 1 Each Capsule 1 Each PO BID Coumadin (Warfarin Sodium) 2.5 Mg Tablet 5 Mg PO DAILY16 Vitamin D3 (Cholecalciferol (Vitamin D3)) 1,000 Unit Tablet 2,000 Unit PO BID Torsemide 100 Mg Tablet 50 Mg PO DAILY Spironolactone 25 Mg Tablet 25 Mg PO DAILY Simvastatin 40 Mg Tablet 20 Mg PO HS Seroquel (Quetiapine Fumarate) 25 Mg Tablet 25 Mg PO PRN TID PRN Klor-Con M20 (Potassium Chloride) 20 Meq Tab.er.prt 20 Meq PO DAILY Nystatin 15 Gm Powder 1 Manjeet TP TID APPLY UNDER EACH BREAST Toprol Xl (Metoprolol Succinate) 50 Mg Tab.er.24h 50 Mg PO DAILY Levothyroxine Sodium 100 Mcg Tablet 100 Mcg PO DAILY06 Lantus Solostar (Insulin Glargine,Hum.rec.anlog) 100 Unit/1 Ml Insuln.pen 23 Unit SQ DAILY Humalog (Insulin Lispro) 100 Unit/1 Ml Insuln.pen 3 Unit SQ TIDAC Cardizem Cd (Diltiazem Hcl) 240 Mg Cap.er.24h 240 Mg PO DAILY Artificial Tears Eye Drops (Dextran 70/Hypromellose) 15 Ml Drops 1 Drop EACHEYE BID Acetaminophen 500 Mg Tablet 1,000 Mg PO PRN Q8HRS PRN I have reviewed the current psychotropics carefully including drug interactions. Risk benefit ratio favors no change other than as noted in my dictated progress note. Diagnosis: Problems: (1) Psychotic depression (2) Impulse control disorder (3) Major depressive disorder, recurrent episode (4) Anxiety disorder JAZMINE KILLIAN MD Jan 25, 2018 18:45
[2018-01-25] MEDS: ACETAMINOPHEN 500 MG TABLET PO PRN (21:20)
[2018-01-25] MEDS: ATORVASTATIN CALCIUM 20 MG TABLET PO SCH (21:21)
[2018-01-25] MEDS: FUROSEMIDE INJ 100 MG in IV NORMAL SALINE 100ML 90 ML IV PRN (23:51)
[2018-01-26] VITALS (9 sets, daily range): BP systolic 110–154; BP diastolic 54–82
[2018-01-26] MEDS: methylPREDNISolone SOD SUCC PF 125 MG/2 ML VIAL. IV SCH ×3 (05:28→21:42)
[2018-01-26] MEDS: LEVOTHYROXINE 100 MCG TABLET PO SCH (05:29)
[2018-01-26] MEDS: IPRATRPIUM/ALBUTEROL 0.5/2.5MG 3 ML NEBU. NEB SCH ×4 (05:33→20:30)
[2018-01-26] MEDS: ACETAMINOPHEN 500 MG TABLET PO PRN ×2 (06:24→19:25)
[2018-01-26 06:39] LABS: BASO % 0 % (0-3); EOS % 0 % (0-3); HEMATOCRIT 41.7 % (36.0-47.0); HEMOGLOBIN 13.6 g/dL (12.0-15.5); LYMPH % 8 % (24-48); MEAN CORPUSCULAR HEMOGLOBIN 30 pg (25-35); MEAN CORPUSCULAR HGB CONC 33 g/dL (31-37); MEAN CORPUSCULAR VOLUME 91 fL (79-100); MONO # 0.2 x10^3/uL (0.0-1.1); MONO % 2 % (0-9); NEUT # 11.9 x10^3uL (1.8-7.7); NEUT % 91 % (31-73); PLATELET COUNT 177 x10^3/uL (140-400); RED BLOOD COUNT 4.59 x10^6/uL (3.50-5.40); RED CELL DISTRIBUTION WIDTH 18.2 % (11.5-14.5); WHITE BLOOD COUNT 13.2 x10^3/uL (4.0-11.0)
[2018-01-26 06:43] LABS: CALCIUM 8.8 mg/dL (8.5-10.1); CREATININE 1.9 mg/dL (0.6-1.0); POTASSIUM 4.1 mmol/L (3.5-5.1)
--- NOTE | 2018-01-26 08:47 | PDOC ---
NICOLE RANKIN SHIFT MECH[employer]IC 01/26/18 0847: PROGRESS NOTES Assessment 1. Acute on chronic diastolic heart failure - diuresis on lasix drip with albumin less than expected. Cr remains stable. Will repeat CXR and if continued pulmonary congestion consider addition of metolazone. 2. hypotension - pressure stable 3. atrial fibrillation, permanent with slow ventricular response and frequent 2 second R-R intervals. mild improvement with decrease of BB. decrease CCB. Warfarin for stroke prophylaxis. 4. UTI / recent cellulitis- mgmt per IM 5. CKD - monitor closely BUN, Cr with diuresis. Cr stable at 1.9 today. 6. psychotic depression/anxiety/impulse control disorder - per psych Will repeat request for records from primary customer account representative. Subjective continues to cough and have episodes of increased shortness of breath. continues to have swelling but did agree to lower extremity wraps as she had previously refused NELSON hose and refused to keep legs elevated. argumentative this am about medications and condition. complains of being dehydrated, also complains of having fluid in lungs and says her heart failure is something she has to live with. Objective Vital Signs Date Time Temp Pulse Resp B/P (MAP) Pulse Ox O2 Delivery O2 Flow Rate FiO2 01/26/18 06:50 98.6 64 14 116/71 (86) 99 Nasal Cannula 2.0 Intake and Output 01/26/18 07:00 Intake Total 1731.93 ml Output Total 1200 ml Balance 531.93 ml Intake Oral 1625 ml IV Total 106.93 ml Output Urine Total 1200 ml Abdomen: Normal bowel sounds, Soft, No tenderness Heart: Normal S1, Normal S2 Extremities: Other (chronic venous stasis changes, +edema, lower extremities currently wrapped bilaterally) General: Alert, mild distress, Other (uncooperative) HEENT: Atraumatic Lungs: Other (upper airway rhonchi, bilateral basilar crackles) Neuro: Normal speech Psych/Mental Status: Other (argumentative) Review of Relevant I have reviewed the following items jesús (where applicable) has been applied. Labs Laboratory Tests Test 01/24/18 09:38 01/24/18 10:00 01/24/18 11:47 01/24/18 12:01 Clostridium difficile Toxin (PCR) Negative (Negative) Prothrombin Time 14.4 SEC (9.4-11.4) Prothromb Time International Ratio 1.5 (0.9-1.1) Glucose (Fingerstick) 112 mg/dL (70-99) Troponin I Quantitative < 0.017 ng/mL (0-0.055) Test 01/24/18 16:23 01/24/18 21:43 01/25/18 11:03 01/25/18 12:18 Glucose (Fingerstick) 215 mg/dL (70-99) 233 mg/dL (70-99) 290 mg/dL (70-99) White Blood Count 11.1 x10^3/uL (4.0-11.0) Red Blood Count 4.67 x10^6/uL (3.50-5.40) Hemoglobin 13.8 g/dL (12.0-15.5) Hematocrit 42.5 % (36.0-47.0) Mean Corpuscular Volume 91 fL (79-100) Mean Corpuscular Hemoglobin 30 pg (25-35) Mean Corpuscular Hemoglobin Concent 33 g/dL (31-37) Red Cell Distribution Width 17.7 % (11.5-14.5) Platelet Count 157 x10^3/uL (140-400) Neutrophils (%) (Auto) 87 % (31-73) Lymphocytes (%) (Auto) 10 % (24-48) Monocytes (%) (Auto) 2 % (0-9) Eosinophils (%) (Auto) 0 % (0-3) Basophils (%) (Auto) 1 % (0-3) Neutrophils # (Auto) 9.6 x10^3uL (1.8-7.7) Lymphocytes # (Auto) 1.1 x10^3/uL (1.0-4.8) Monocytes # (Auto) 0.2 x10^3/uL (0.0-1.1) Eosinophils # (Auto) 0.0 x10^3/uL (0.0-0.7) Basophils # (Auto) 0.1 x10^3/uL (0.0-0.2) Prothrombin Time 18.1 SEC (9.4-11.4) Prothromb Time International Ratio 1.9 (0.9-1.1) Sodium Level 137 mmol/L (136-145) Potassium Level 4.4 mmol/L (3.5-5.1) Chloride Level 101 mmol/L (98-107) Carbon Dioxide Level 28 mmol/L (21-32) Anion Gap 8 (6-14) Blood Urea Nitrogen 28 mg/dL (7-20) Creatinine 1.9 mg/dL (0.6-1.0) Estimated GFR (Cockcroft-Gault) 26.0 BUN/Creatinine Ratio 15 (6-20) Glucose Level 316 mg/dL (70-99) Calcium Level 8.7 mg/dL (8.5-10.1) Total Bilirubin 0.3 mg/dL (0.2-1.0) Aspartate Amino Transf (AST/SGOT) 20 U/L (15-37) Alanine Aminotransferase (ALT/SGPT) 25 U/L (14-59) Alkaline Phosphatase 63 U/L (46-116) Total Protein 7.2 g/dL (6.4-8.2) Albumin 2.3 g/dL (3.4-5.0) Albumin/Globulin Ratio 0.5 (1.0-1.7) Test 01/25/18 17:13 01/25/18 22:51 01/26/18 05:48 01/26/18 07:20 Glucose (Fingerstick) 158 mg/dL (70-99) 218 mg/dL (70-99) White Blood Count 13.2 x10^3/uL (4.0-11.0) Red Blood Count 4.59 x10^6/uL (3.50-5.40) Hemoglobin 13.6 g/dL (12.0-15.5) Hematocrit 41.7 % (36.0-47.0) Mean Corpuscular Volume 91 fL (79-100) Mean Corpuscular Hemoglobin 30 pg (25-35) Mean Corpuscular Hemoglobin Concent 33 g/dL (31-37) Red Cell Distribution Width 18.2 % (11.5-14.5) Platelet Count 177 x10^3/uL (140-400) Neutrophils (%) (Auto) 91 % (31-73) Lymphocytes (%) (Auto) 8 % (24-48) Monocytes (%) (Auto) 2 % (0-9) Eosinophils (%) (Auto) 0 % (0-3) Basophils (%) (Auto) 0 % (0-3) Neutrophils # (Auto) 11.9 x10^3uL (1.8-7.7) Lymphocytes # (Auto) 1.0 x10^3/uL (1.0-4.8) Monocytes # (Auto) 0.2 x10^3/uL (0.0-1.1) Eosinophils # (Auto) 0.0 x10^3/uL (0.0-0.7) Basophils # (Auto) 0.0 x10^3/uL (0.0-0.2) Sodium Level 135 mmol/L (136-145) Potassium Level 4.1 mmol/L (3.5-5.1) Chloride Level 100 mmol/L (98-107) Carbon Dioxide Level 29 mmol/L (21-32) Anion Gap 6 (6-14) Blood Urea Nitrogen 39 mg/dL (7-20) Creatinine 1.9 mg/dL (0.6-1.0) Estimated GFR (Cockcroft-Gault) 26.0 Glucose Level 216 mg/dL (70-99) Calcium Level 8.8 mg/dL (8.5-10.1) Prothrombin Time 23.5 SEC (9.4-11.4) Prothromb Time International Ratio 2.5 (0.9-1.1) Medications Current Medications Acetaminophen (Tylenol) 650 mg PRN Q6HRS PRN PO PAIN / TEMP; Start 01/24/18 at 06:15; Stop 01/24/18 at 07:21; Status DC Vitamin D (Vitamin D3) 2,000 unit BID PO Last administered on 01/25/18at 21:21; Start 01/24/18 at 09:00 Diltiazem HCl (Cardizem 24hr Cd) 240 mg DAILY PO Last administered on at 08:08; Start 01/24/18 at 09:00 Insulin Glargine (Lantus) 23 units DAILY SQ Last administered on 01/25/18at 08: 13; Start 01/24/18 at 09:00 Insulin Human Lispro (HumaLOG) 3 units TIDAC SQ ; Start 01/24/18 at 07:30; Stop 01/24/18 at 16:27; Status DC Levothyroxine Sodium (Synthroid) 100 mcg DAILY06 PO Last administered on at 05:29; Start 01/25/18 at 06:00 Multi-Ingredient Ointment (Analgesic [place]) 1 manjeet PRN QID PRN TP MUSCLE PAIN; Start 01/24/18 at 06:15 Nystatin (Nystop) 1 manjeet TID TP Last administered on 01/25/18at 17:16; Start at 09:00 Potassium Chloride (Klor-Con) 20 meq DAILY PO Last administered on 01/25/18at 08 :08; Start 01/24/18 at 09:00 Simvastatin (Zocor) 20 mg HS PO ; Start 01/24/18 at 21:00; Stop 01/24/18 at 21: 00; Status DC Acetaminophen (Tylenol) 500 mg PRN Q8HRS PRN PO PAIN / TEMP; Start 01/24/18 at 07:30; Stop 01/24/18 at 07:30; Status DC Artificial Tears (Artificial Tears) 1 drop BID OU ; Start 01/24/18 at 09:00; Status Cancel Enoxaparin Sodium (Lovenox 120mg Syringe) 110 mg BID SQ Last administered on at 21:20; Start 01/24/18 at 09:00 Lactobacillus Rhamnosus (Culturelle) 1 cap BID PO Last administered on at 21:21; Start 01/24/18 at 09:00 Levofloxacin (Levaquin) 750 mg QODAY PO Last administered on 01/24/18at 08:26; Start 01/24/18 at 09:00 Al Hydroxide/Mg Hydroxide (Mylanta Plus Xs) 15 ml PRN AFTMEALHC PRN PO DYSPEPSIA; Start 01/24/18 at 06:15 Magnesium Hydroxide (Milk Of Magnesia) 2,400 mg PRN Q8HRS PRN PO CONSTIPATION; Start 01/24/18 at 06:15 Metoprolol Succinate (Toprol Xl) 50 mg DAILY PO Last administered on 01/25/18at 08:10; Start 01/24/18 at 09:00; Stop 01/25/18 at 23:44; Status DC Nicotine (Nicoderm Cq 21mg) 1 patch DAILY TD Last administered on 01/25/18at 08: 07; Start 01/24/18 at 09:00 Quetiapine Fumarate (SEROquel) 25 mg PRN TID PRN PO AGITATION; Start 01/24/18 at 06:15 Sertraline HCl (Zoloft) 25 mg DAILY PO Last administered on 01/25/18at 08:08; Start 01/24/18 at 09:00 Spironolactone (Aldactone) 25 mg DAILY PO Last administered on 01/25/18at 08:09 ; Start 01/24/18 at 09:00; Stop 01/25/18 at 23:44; Status DC Torsemide (Demadex) 50 mg DAILY PO ; Start 01/24/18 at 09:00; Stop 01/25/18 at 23:44; Status DC Acetaminophen (Tylenol) 1,000 mg PRN Q8HRS PRN PO PAIN / TEMP Last administered on 01/26/18at 06:24; Start 01/24/18 at 07:30 Methylprednisolone Sodium Succinate (SOLU-Medrol 125MG VIAL) 125 mg Q8HRS IV Last administered on 01/26/18at 05:28; Start 01/24/18 at 08:00 Albuterol/ Ipratropium (Duoneb) 3 ml RTQID NEB Last administered on 01/26/18at 05:33; Start 01/24/18 at 08:00 Albuterol Sulfate (Ventolin) 2.5 mg PRN Q2HR PRN NEB SHORTNESS OF BREATH; Start 01/24/18 at 08:00 Artificial Tears (Refresh Classic) 1 drop BID OU Last administered on at 21:32; Start 01/24/18 at 09:00 Albumin Human 50 ml @ 50 mls/hr 1X ONCE IV Last administered on 01/24/18at 12: 18; Start 01/24/18 at 12:00; Stop 01/24/18 at 12:59; Status DC Furosemide 100 mg/ Sodium Chloride 100 ml @ 0 mls/hr CONT PRN IV PER PROTOCOL Last administered on 01/25/18at 23:51; Start 01/24/18 at 12:00 Magnesium Sulfate 50 ml @ 25 mls/hr 1X ONCE IV ; Start 01/24/18 at 11:45; Stop 01/24/18 at 13:44; Status UNV Atorvastatin Calcium (Lipitor) 40 mg QHS PO Last administered on 01/25/18at 21: 21; Start 01/24/18 at 21:00 Warfarin Sodium (Coumadin Per Pharmacy) 1 each PRN DAILY PRN MC SEE COMMENTS Last administered on 01/24/18at 15:26; Start 01/24/18 at 11:45 Magnesium Sulfate 100 ml @ 100 mls/hr Q1H IV Last administered on 01/24/18at 13 :18; Start 01/24/18 at 12:00; Stop 01/24/18 at 14:00; Status DC Warfarin Sodium (Coumadin) 5 mg 1X WARF ONCE PO Last administered on at 16:11; Start 01/24/18 at 16:00; Stop 01/24/18 at 16:01; Status DC Insulin Human Lispro (HumaLOG) 0-9 UNITS TIDWMEALS SQ Last administered on 01/25at 17:16; Start 01/24/18 at 17:00 Dextrose 12.5 gm PRN Q15MIN PRN IV SEE COMMENTS; Start 01/24/18 at 16:30 Albumin Human 50 ml @ 50 mls/hr 1X ONCE IV Last administered on 01/25/18at 12: 35; Start 01/25/18 at 11:00; Stop 01/25/18 at 11:59; Status DC Warfarin Sodium (Coumadin) 5 mg 1X WARF ONCE PO Last administered on at 17:16; Start 01/25/18 at 16:00; Stop 01/25/18 at 16:01; Status DC Metoprolol Succinate (Toprol Xl) 25 mg DAILY PO ; Start 01/26/18 at 09:00 Active Scripts Active Reported Zoloft (Sertraline Hcl) 25 Mg Tablet 25 Mg PO DAILY NICODERM CQ 21mg (Nicotine) 1 Each Patch.td24 1 Patch TD DAILY Analgesic [place] (Methyl Salicylate/Menthol) 28 Gm Oint...g. 1 Manjeet TP PRN QID PRN Milk Of Magnesia (Magnesium Hydroxide) 2,400 Mg/10 Ml Oral.susp 2,400 Mg PO PRN Q8HRS PRN Advanced Antacid Liquid (Mag Hydrox/Al Hydrox/Simeth) 355 Ml Oral.susp 15 Ml PO PRN AFTMEALHC PRN Tylenol (Acetaminophen) 325 Mg Tablet 650 Mg PO PRN Q6HRS PRN Levaquin (Levofloxacin) 750 Mg Tablet 750 Mg PO EVERY 48 HOURS 4 Days Lovenox (Enoxaparin Sodium) 120 Mg/0.8 Ml Disp.syrin 120 Mg SQ DAILY Culturelle (Lactobacillus Rhamnosus Gg) 1 Each Capsule 1 Each PO BID Coumadin (Warfarin Sodium) 2.5 Mg Tablet 5 Mg PO DAILY16 Vitamin D3 (Cholecalciferol (Vitamin D3)) 1,000 Unit Tablet 2,000 Unit PO BID Torsemide 100 Mg Tablet 50 Mg PO DAILY Spironolactone 25 Mg Tablet 25 Mg PO DAILY Simvastatin 40 Mg Tablet 20 Mg PO HS Seroquel (Quetiapine Fumarate) 25 Mg Tablet 25 Mg PO PRN TID PRN Klor-Con M20 (Potassium Chloride) 20 Meq Tab.er.prt 20 Meq PO DAILY Nystatin 15 Gm Powder 1 Manjeet TP TID APPLY UNDER EACH BREAST Toprol Xl (Metoprolol Succinate) 50 Mg Tab.er.24h 50 Mg PO DAILY Levothyroxine Sodium 100 Mcg Tablet 100 Mcg PO DAILY06 Lantus Solostar (Insulin Glargine,Hum.rec.anlog) 100 Unit/1 Ml Insuln.pen 23 Unit SQ DAILY Humalog (Insulin Lispro) 100 Unit/1 Ml Insuln.pen 3 Unit SQ TIDAC Cardizem Cd (Diltiazem Hcl) 240 Mg Cap.er.24h 240 Mg PO DAILY Artificial Tears Eye Drops (Dextran 70/Hypromellose) 15 Ml Drops 1 Drop EACHEYE BID Acetaminophen 500 Mg Tablet 1,000 Mg PO PRN Q8HRS PRN Vitals/I & O Vital Sign - Last 24 Hours 01/25/18 01/25/18 01/25/18 01/25/18 09:00 10:00 10:47 11:00 Pulse 78 70 Resp 20 20 B/P (MAP) 111/79 (90) 128/70 (89) Pulse Ox 95 96 97 O2 Delivery Nasal Cannula Nasal Cannula Nasal Cannula Nasal Cannula O2 Flow Rate 2.0 2.0 2.0 2.0 01/25/18 01/25/18 01/25/18 01/25/18 11:10 13:10 16:00 16:08 Temp 98.2 Pulse 74 72 Resp 18 18 B/P (MAP) 117/68 (84) 154/73 (100) Pulse Ox 96 96 95 O2 Delivery Nasal Cannula Nasal Cannula Nasal Cannula Nasal Cannula O2 Flow Rate 2.0 2.0 2.0 2.0 9/2501/25/18 01/25/18 01/25/18 17:06 19:00 19:41 20:00 Pulse 67 88 Resp 18 16 B/P (MAP) 111/67 (82) 140/74 (96) Pulse Ox 96 96 96 O2 Delivery Nasal Cannula Nasal Cannula Nasal Cannula Nasal Cannula O2 Flow Rate 2.0 2.0 2.0 2.0 01/25/18 01/25/18 01/26/18 01/26/18 21:20 23:16 00:16 00:25 Temp 98.8 98.7 Pulse 82 66 70 Resp 14 13 B/P (MAP) 131/63 (85) 122/66 (84) 110/54 (72) Pulse Ox 96 95 95 O2 Delivery Nasal Cannula Nasal Cannula Nasal Cannula Nasal Cannula O2 Flow Rate 2.0 2.0 2.0 2.0 01/26/18 01/26/18 01/26/18 01/26/18 03:16 04:00 04:16 05:46 Pulse 60 54 Resp 13 17 B/P (MAP) 112/60 (77) 110/66 (81) Pulse Ox 98 96 95 O2 Delivery Nasal Cannula Nasal Cannula Nasal Cannula Nasal Cannula O2 Flow Rate 2.0 2.0 2.0 2.0 01/26/18 06:50 Temp 98.6 Pulse 64 Resp 14 B/P (MAP) 116/71 (86) Pulse Ox 99 O2 Delivery Nasal Cannula O2 Flow Rate 2.0 Intake and Output 01/25/18 01/25/18 01/26/18 15:00 23:00 07:00 Intake Total 350 ml 850 ml 531.93 ml Output Total 600 ml 375 ml 225 ml Balance -250 ml 475 ml 306.93 ml CLAUDIO DIEGO MD 01/26/18 1619: PROGRESS NOTES Review of Relevant Pt. seen and examined. Agree with above PRODUCTION FLOATER note with following comments: On exam she has bilateral rhonchi/rales. Venous stasis changes she has had for several years. BNP mildly elevated at 2500. Echo wnl. Mild diastolic HF. Probably more precipitated by lung issues. Continue treatment for her acute bronchitis. abx and slow taper steroids. May benefit from transfer to [place] for pulm eval if no improvement by a.m. supportive care. Continue gentle diuresis Consider RHC if symptoms worsen. NICOLE RANKIN SHIFT MECHANIC Jan 26, 2018 08:47 CLAUDIO DIEGO MD Jan 26, 2018 16:19
[2018-01-26] MEDS: CHOLECALCIFEROL (VITAMIN D3) 1,000 UNIT TABLET PO SCH ×2 (08:54→21:43)
[2018-01-26] MEDS: POLYVINYL ALCOHOL/POVIDONE/PF OPHTH SOLUTION DROPERETTE. OU SCH ×2 (08:54→19:38)
[2018-01-26] MEDS: LACTOBACILLUS RHAMNOSUS GG 1 CAPSULE. PO SCH ×2 (08:54→21:42)
[2018-01-26] MEDS: METOPROLOL SUCC 24HR ER 25 MG TAB.ER.24H. PO SCH (08:55)
[2018-01-26] MEDS: POTASSIUM CHLORIDE 20 MEQ TABLET.ER. PO SCH (08:55)
[2018-01-26] MEDS: levoFLOXacin 750 MG TABLET PO SCH (08:55)
[2018-01-26] MEDS: SERTRALINE 25 MG TABLET. PO SCH (08:55)
[2018-01-26] MEDS: NICOTINE 21MG PATCH. TD SCH (08:56)
[2018-01-26] MEDS: NYSTATIN TOPICAL POWDER 15GM BOTTLE. TP SCH ×3 (09:00→21:42)
[2018-01-26] MEDS: INSULIN GLARGINE 300 UNITS/3 ML INSULN.PEN. SQ SCH (09:10)
[2018-01-26] MEDS: INSULIN LISPRO 300 UNITS/3 ML INSULN.PEN. SQ SCH ×3 (09:13→17:34)
--- NOTE | 2018-01-26 10:59 | RAD ---
EXAM: CHEST 1 VIEW History: Shortness of breath, congestive heart failure COMPARISON: 01/24/2018 TECHNIQUE: Single portable radiograph of the chest FINDINGS: Low lung volumes and technique accentuates heart size and pulmonary vasculature. Left-sided PICC line is unchanged. Mild prominent appearing bilateral interstitial lung markings. IMPRESSION: 1. Mild congestive changes. Electronically signed by: Gm Vick MD (01/26/2018 10:55 AM) [id number]
[2018-01-26] MEDS ORDERED: metOLazone 2.5 MG TABLET PO SCH (11:45)
--- NOTE | 2018-01-26 14:58 | PDOC ---
Progress Note. Subjective: Patient remains sitting in her chair beside the bed growing more agitated and uncooperative. She is very resistant to any type of compression or elevation of her lower extremities complaining that her feet are too hot or that she cannot get up. She is breathing much better with fewer and less severe coughing spells today. She denies any new complaints. Diuresis has been less than anticipated cardiology adding metolazone. Patient does admit that the compression and elevation of her lower extremities has decreased her swelling and discomfort. Repeat chest x-ray read as mild congestive changes, labs remain stable as below. Objective: Vital Signs: Vital Signs Date Time Temp Pulse Resp B/P (MAP) Pulse Ox O2 Delivery O2 Flow Rate FiO2 01/26/18 13:46 90 19 133/82 (99) 98 Nasal Cannula 2.0 01/26/18 06:50 98.6 I & O: Intake and Output 01/26/18 07:00 Intake Total 1731.93 ml Output Total 1200 ml Balance 531.93 ml Intake Oral 1625 ml IV Total 106.93 ml Output Urine Total 1200 ml Labs: Laboratory Tests Test 01/24/18 16:23 01/24/18 21:43 01/25/18 11:03 01/25/18 12:18 Glucose (Fingerstick) 215 mg/dL (70-99) 233 mg/dL (70-99) 290 mg/dL (70-99) White Blood Count 11.1 x10^3/uL (4.0-11.0) Red Blood Count 4.67 x10^6/uL (3.50-5.40) Hemoglobin 13.8 g/dL (12.0-15.5) Hematocrit 42.5 % (36.0-47.0) Mean Corpuscular Volume 91 fL (79-100) Mean Corpuscular Hemoglobin 30 pg (25-35) Mean Corpuscular Hemoglobin Concent 33 g/dL (31-37) Red Cell Distribution Width 17.7 % (11.5-14.5) Platelet Count 157 x10^3/uL (140-400) Neutrophils (%) (Auto) 87 % (31-73) Lymphocytes (%) (Auto) 10 % (24-48) Monocytes (%) (Auto) 2 % (0-9) Eosinophils (%) (Auto) 0 % (0-3) Basophils (%) (Auto) 1 % (0-3) Neutrophils # (Auto) 9.6 x10^3uL (1.8-7.7) Lymphocytes # (Auto) 1.1 x10^3/uL (1.0-4.8) Monocytes # (Auto) 0.2 x10^3/uL (0.0-1.1) Eosinophils # (Auto) 0.0 x10^3/uL (0.0-0.7) Basophils # (Auto) 0.1 x10^3/uL (0.0-0.2) Prothrombin Time 18.1 SEC (9.4-11.4) Prothromb Time International Ratio 1.9 (0.9-1.1) Sodium Level 137 mmol/L (136-145) Potassium Level 4.4 mmol/L (3.5-5.1) Chloride Level 101 mmol/L (98-107) Carbon Dioxide Level 28 mmol/L (21-32) Anion Gap 8 (6-14) Blood Urea Nitrogen 28 mg/dL (7-20) Creatinine 1.9 mg/dL (0.6-1.0) Estimated GFR (Cockcroft-Gault) 26.0 BUN/Creatinine Ratio 15 (6-20) Glucose Level 316 mg/dL (70-99) Calcium Level 8.7 mg/dL (8.5-10.1) Total Bilirubin 0.3 mg/dL (0.2-1.0) Aspartate Amino Transf (AST/SGOT) 20 U/L (15-37) Alanine Aminotransferase (ALT/SGPT) 25 U/L (14-59) Alkaline Phosphatase 63 U/L (46-116) Total Protein 7.2 g/dL (6.4-8.2) Albumin 2.3 g/dL (3.4-5.0) Albumin/Globulin Ratio 0.5 (1.0-1.7) Test 01/25/18 17:13 01/25/18 22:51 01/26/18 05:48 01/26/18 07:20 Glucose (Fingerstick) 158 mg/dL (70-99) 218 mg/dL (70-99) White Blood Count 13.2 x10^3/uL (4.0-11.0) Red Blood Count 4.59 x10^6/uL (3.50-5.40) Hemoglobin 13.6 g/dL (12.0-15.5) Hematocrit 41.7 % (36.0-47.0) Mean Corpuscular Volume 91 fL (79-100) Mean Corpuscular Hemoglobin 30 pg (25-35) Mean Corpuscular Hemoglobin Concent 33 g/dL (31-37) Red Cell Distribution Width 18.2 % (11.5-14.5) Platelet Count 177 x10^3/uL (140-400) Neutrophils (%) (Auto) 91 % (31-73) Lymphocytes (%) (Auto) 8 % (24-48) Monocytes (%) (Auto) 2 % (0-9) Eosinophils (%) (Auto) 0 % (0-3) Basophils (%) (Auto) 0 % (0-3) Neutrophils # (Auto) 11.9 x10^3uL (1.8-7.7) Lymphocytes # (Auto) 1.0 x10^3/uL (1.0-4.8) Monocytes # (Auto) 0.2 x10^3/uL (0.0-1.1) Eosinophils # (Auto) 0.0 x10^3/uL (0.0-0.7) Basophils # (Auto) 0.0 x10^3/uL (0.0-0.2) Sodium Level 135 mmol/L (136-145) Potassium Level 4.1 mmol/L (3.5-5.1) Chloride Level 100 mmol/L (98-107) Carbon Dioxide Level 29 mmol/L (21-32) Anion Gap 6 (6-14) Blood Urea Nitrogen 39 mg/dL (7-20) Creatinine 1.9 mg/dL (0.6-1.0) Estimated GFR (Cockcroft-Gault) 26.0 Glucose Level 216 mg/dL (70-99) Calcium Level 8.8 mg/dL (8.5-10.1) Magnesium Level 1.9 mg/dL (1.8-2.4) Prothrombin Time 23.5 SEC (9.4-11.4) Prothromb Time International Ratio 2.5 (0.9-1.1) Test 01/26/18 13:21 Glucose (Fingerstick) 315 mg/dL (70-99) Physical Exam: Gen.: Alert, no apparent distress HEENT: Normocephalic atraumatic, PERRLA EOMI, no scleral icterus, oral mucosa pink and moist Neck: Supple, no lymphadenopathy, nontender Cardiovascular: Normal S1 and S2 no murmurs Pulmonary: Coarse breath sounds with better air movement today, decreased at bases Abdomen: Soft nontender non-distended, bowel sounds present no masses Extremities: 2+ pitting lower extremity edema with stasis changes Neuro: Alert and oriented 3, cranial nerves II through XII grossly intact, no lateralizing neuro deficits Skin: Warm, dry Assessment: 1. Acute on chronic diastolic heart failure - diuresis on lasix drip with albumin now metolazone. 2. hypotension - pressure stable 3. atrial fibrillation, Warfarin for stroke prophylaxis now therapeutic DC Lovenox. 4. UTI / recent cellulitis-continue Levaquin 5. CKD - monitor closely BUN, Cr with diuresis. Cr stable at 1.9 today. 6. psychotic depression/anxiety/impulse control disorder - per psych RAYMOND DAWKINS DO Jan 26, 2018 14:58
[2018-01-26] MEDS ORDERED: WARFARIN 2 MG TABLET. PO ONE (16:00)
--- NOTE | 2018-01-26 20:38 | PDOC ---
Exam Note: Diomedes Note: Please also refer to the separate dictated note~for this date of service dictated separately.~Patient seen individually. Discussed the patient with Nursing staff reviewed the chart.~Reviewed interim history and current functioning. Reviewed vital signs,~Labs/ Radiology~and current medications noted below. Continue current treatment with the changes noted in the dictated addendum note Assessment: Vital Signs: Vital Signs Date Time Temp Pulse Resp B/P (MAP) Pulse Ox O2 Delivery O2 Flow Rate FiO2 01/26/18 20:31 98 Nasal Cannula 2.0 01/26/18 19:00 98.9 84 14 154/77 (102) I&O Intake and Output 01/26/18 07:00 Intake Total 1731.93 ml Output Total 1200 ml Balance 531.93 ml Intake Oral 1625 ml IV Total 106.93 ml Output Urine Total 1200 ml Labs: Laboratory Tests Test 01/25/18 22:51 01/26/18 05:48 01/26/18 07:20 01/26/18 13:21 Glucose (Fingerstick) 218 mg/dL (70-99) H 315 mg/dL (70-99) H White Blood Count 13.2 x10^3/uL (4.0-11.0) H Red Blood Count 4.59 x10^6/uL (3.50-5.40) Hemoglobin 13.6 g/dL (12.0-15.5) Hematocrit 41.7 % (36.0-47.0) Mean Corpuscular Volume 91 fL (79-100) Mean Corpuscular Hemoglobin 30 pg (25-35) Mean Corpuscular Hemoglobin Concent 33 g/dL (31-37) Red Cell Distribution Width 18.2 % (11.5-14.5) H Platelet Count 177 x10^3/uL (140-400) Neutrophils (%) (Auto) 91 % (31-73) H Lymphocytes (%) (Auto) 8 % (24-48) L Monocytes (%) (Auto) 2 % (0-9) Eosinophils (%) (Auto) 0 % (0-3) Basophils (%) (Auto) 0 % (0-3) Neutrophils # (Auto) 11.9 x10^3uL (1.8-7.7) H Lymphocytes # (Auto) 1.0 x10^3/uL (1.0-4.8) Monocytes # (Auto) 0.2 x10^3/uL (0.0-1.1) Eosinophils # (Auto) 0.0 x10^3/uL (0.0-0.7) Basophils # (Auto) 0.0 x10^3/uL (0.0-0.2) Sodium Level 135 mmol/L (136-145) L Potassium Level 4.1 mmol/L (3.5-5.1) Chloride Level 100 mmol/L (98-107) Carbon Dioxide Level 29 mmol/L (21-32) Anion Gap 6 (6-14) Blood Urea Nitrogen 39 mg/dL (7-20) H Creatinine 1.9 mg/dL (0.6-1.0) H Estimated GFR (Cockcroft-Gault) 26.0 Glucose Level 216 mg/dL (70-99) H Calcium Level 8.8 mg/dL (8.5-10.1) Magnesium Level 1.9 mg/dL (1.8-2.4) Prothrombin Time 23.5 SEC (9.4-11.4) H Prothrombin Time INR 2.5 (0.9-1.1) H Test 01/26/18 17:00 Glucose (Fingerstick) 287 mg/dL (70-99) H Current Medications: Meds: Current Medications Acetaminophen (Tylenol) 650 mg PRN Q6HRS PRN PO PAIN / TEMP; Start 01/24/18 at 06:15; Stop 01/24/18 at 07:21; Status DC Vitamin D (Vitamin D3) 2,000 unit BID PO Last administered on 01/26/18at 08:54; Start 01/24/18 at 09:00 Diltiazem HCl (Cardizem 24hr Cd) 240 mg DAILY PO Last administered on at 08:55; Start 01/24/18 at 09:00; Stop 01/26/18 at 11:38; Status DC Insulin Glargine (Lantus) 23 units DAILY SQ Last administered on 01/26/18at 09: 10; Start 01/24/18 at 09:00 Insulin Human Lispro (HumaLOG) 3 units TIDAC SQ ; Start 01/24/18 at 07:30; Stop 01/24/18 at 16:27; Status DC Levothyroxine Sodium (Synthroid) 100 mcg DAILY06 PO Last administered on at 05:29; Start 01/25/18 at 06:00 Multi-Ingredient Ointment (Analgesic Sheridan) 1 manjeet PRN QID PRN TP MUSCLE PAIN; Start 01/24/18 at 06:15 Nystatin (Nystop) 1 manjeet TID TP Last administered on 01/25/18at 17:16; Start at 09:00 Potassium Chloride (Klor-Con) 20 meq DAILY PO Last administered on 01/26/18at 08 :55; Start 01/24/18 at 09:00 Simvastatin (Zocor) 20 mg HS PO ; Start 01/24/18 at 21:00; Stop 01/24/18 at 21: 00; Status DC Acetaminophen (Tylenol) 500 mg PRN Q8HRS PRN PO PAIN / TEMP; Start 01/24/18 at 07:30; Stop 01/24/18 at 07:30; Status DC Artificial Tears (Artificial Tears) 1 drop BID OU ; Start 01/24/18 at 09:00; Status Cancel Enoxaparin Sodium (Lovenox 120mg Syringe) 110 mg BID SQ Last administered on at 21:20; Start 01/24/18 at 09:00; Stop 01/26/18 at 08:54; Status DC Lactobacillus Rhamnosus (Culturelle) 1 cap BID PO Last administered on at 08:54; Start 01/24/18 at 09:00 Levofloxacin (Levaquin) 750 mg QODAY PO Last administered on 01/26/18at 08:55; Start 01/24/18 at 09:00 Al Hydroxide/Mg Hydroxide (Mylanta Plus Xs) 15 ml PRN AFTMEALHC PRN PO DYSPEPSIA; Start 01/24/18 at 06:15 Magnesium Hydroxide (Milk Of Magnesia) 2,400 mg PRN Q8HRS PRN PO CONSTIPATION; Start 01/24/18 at 06:15 Metoprolol Succinate (Toprol Xl) 50 mg DAILY PO Last administered on 01/25/18at 08:10; Start 01/24/18 at 09:00; Stop 01/25/18 at 23:44; Status DC Nicotine (Nicoderm Cq 21mg) 1 patch DAILY TD Last administered on 01/26/18at 08: 56; Start 01/24/18 at 09:00 Quetiapine Fumarate (SEROquel) 25 mg PRN TID PRN PO AGITATION; Start 01/24/18 at 06:15 Sertraline HCl (Zoloft) 25 mg DAILY PO Last administered on 01/26/18at 08:55; Start 01/24/18 at 09:00 Spironolactone (Aldactone) 25 mg DAILY PO Last administered on 01/25/18at 08:09 ; Start 01/24/18 at 09:00; Stop 01/25/18 at 23:44; Status DC Torsemide (Demadex) 50 mg DAILY PO ; Start 01/24/18 at 09:00; Stop 01/25/18 at 23:44; Status DC Acetaminophen (Tylenol) 1,000 mg PRN Q8HRS PRN PO PAIN / TEMP Last administered on 01/26/18at 19:25; Start 01/24/18 at 07:30 Methylprednisolone Sodium Succinate (SOLU-Medrol 125MG VIAL) 125 mg Q8HRS IV Last administered on 01/26/18at 05:28; Start 01/24/18 at 08:00; Stop 01/26/18 at 15:27; Status DC Albuterol/ Ipratropium (Duoneb) 3 ml RTQID NEB Last administered on 01/26/18at 20:30; Start 01/24/18 at 08:00 Albuterol Sulfate (Ventolin) 2.5 mg PRN Q2HR PRN NEB SHORTNESS OF BREATH; Start 01/24/18 at 08:00 Artificial Tears (Refresh Classic) 1 drop BID OU Last administered on at 19:38; Start 01/24/18 at 09:00 Albumin Human 50 ml @ 50 mls/hr 1X ONCE IV Last administered on 01/24/18at 12: 18; Start 01/24/18 at 12:00; Stop 01/24/18 at 12:59; Status DC Furosemide 100 mg/ Sodium Chloride 100 ml @ 0 mls/hr CONT PRN IV PER PROTOCOL Last administered on 01/25/18at 23:51; Start 01/24/18 at 12:00 Magnesium Sulfate 50 ml @ 25 mls/hr 1X ONCE IV ; Start 01/24/18 at 11:45; Stop 01/24/18 at 13:44; Status UNV Atorvastatin Calcium (Lipitor) 40 mg QHS PO Last administered on 01/25/18at 21: 21; Start 01/24/18 at 21:00 Warfarin Sodium (Coumadin Per Pharmacy) 1 each PRN DAILY PRN MC SEE COMMENTS Last administered on 01/26/18at 08:51; Start 01/24/18 at 11:45 Magnesium Sulfate 100 ml @ 100 mls/hr Q1H IV Last administered on 01/24/18at 13 :18; Start 01/24/18 at 12:00; Stop 01/24/18 at 14:00; Status DC Warfarin Sodium (Coumadin) 5 mg 1X WARF ONCE PO Last administered on at 16:11; Start 01/24/18 at 16:00; Stop 01/24/18 at 16:01; Status DC Insulin Human Lispro (HumaLOG) 0-9 UNITS TIDWMEALS SQ Last administered on 01/26at 17:34; Start 01/24/18 at 17:00 Dextrose 12.5 gm PRN Q15MIN PRN IV SEE COMMENTS; Start 01/24/18 at 16:30 Albumin Human 50 ml @ 50 mls/hr 1X ONCE IV Last administered on 01/25/18at 12: 35; Start 01/25/18 at 11:00; Stop 01/25/18 at 11:59; Status DC Warfarin Sodium (Coumadin) 5 mg 1X WARF ONCE PO Last administered on at 17:16; Start 01/25/18 at 16:00; Stop 01/25/18 at 16:01; Status DC Metoprolol Succinate (Toprol Xl) 25 mg DAILY PO Last administered on 01/26/18at 08:55; Start 01/26/18 at 09:00 Warfarin Sodium (Coumadin) 2 mg 1X WARF ONCE PO Last administered on at 17:31; Start 01/26/18 at 16:00; Stop 01/26/18 at 16:01; Status DC Diltiazem HCl (Cardizem 24hr Cd) 120 mg DAILY PO ; Start 01/27/18 at 09:00 Metolazone (Zaroxolyn) 2.5 mg DAILY PO Last administered on 01/26/18at 13:35; Start 01/26/18 at 11:45 Methylprednisolone Sodium Succinate (SOLU-Medrol 125MG VIAL) 125 mg Q12HR IV ; Start 01/26/18 at 21:00 Active Scripts Active Reported Zoloft (Sertraline Hcl) 25 Mg Tablet 25 Mg PO DAILY NICODERM CQ 21mg (Nicotine) 1 Each Patch.td24 1 Patch TD DAILY Analgesic Sheridan (Methyl Salicylate/Menthol) 28 Gm Oint...g. 1 Manjeet TP PRN QID PRN Milk Of Magnesia (Magnesium Hydroxide) 2,400 Mg/10 Ml Oral.susp 2,400 Mg PO PRN Q8HRS PRN Advanced Antacid Liquid (Mag Hydrox/Al Hydrox/Simeth) 355 Ml Oral.susp 15 Ml PO PRN AFTMEALHC PRN Tylenol (Acetaminophen) 325 Mg Tablet 650 Mg PO PRN Q6HRS PRN Levaquin (Levofloxacin) 750 Mg Tablet 750 Mg PO EVERY 48 HOURS 4 Days Lovenox (Enoxaparin Sodium) 120 Mg/0.8 Ml Disp.syrin 120 Mg SQ DAILY Culturelle (Lactobacillus Rhamnosus Gg) 1 Each Capsule 1 Each PO BID Coumadin (Warfarin Sodium) 2.5 Mg Tablet 5 Mg PO DAILY16 Vitamin D3 (Cholecalciferol (Vitamin D3)) 1,000 Unit Tablet 2,000 Unit PO BID Torsemide 100 Mg Tablet 50 Mg PO DAILY Spironolactone 25 Mg Tablet 25 Mg PO DAILY Simvastatin 40 Mg Tablet 20 Mg PO HS Seroquel (Quetiapine Fumarate) 25 Mg Tablet 25 Mg PO PRN TID PRN Klor-Con M20 (Potassium Chloride) 20 Meq Tab.er.prt 20 Meq PO DAILY Nystatin 15 Gm Powder 1 Manjeet TP TID APPLY UNDER EACH BREAST Toprol Xl (Metoprolol Succinate) 50 Mg Tab.er.24h 50 Mg PO DAILY Levothyroxine Sodium 100 Mcg Tablet 100 Mcg PO DAILY06 Lantus Solostar (Insulin Glargine,Hum.rec.anlog) 100 Unit/1 Ml Insuln.pen 23 Unit SQ DAILY Humalog (Insulin Lispro) 100 Unit/1 Ml Insuln.pen 3 Unit SQ TIDAC Cardizem Cd (Diltiazem Hcl) 240 Mg Cap.er.24h 240 Mg PO DAILY Artificial Tears Eye Drops (Dextran 70/Hypromellose) 15 Ml Drops 1 Drop EACHEYE BID Acetaminophen 500 Mg Tablet 1,000 Mg PO PRN Q8HRS PRN I have reviewed the current psychotropics carefully including drug interactions. Risk benefit ratio favors no change other than as noted in my dictated progress note. Diagnosis: Problems: (1) Atrial fibrillation (2) Anxiety disorder (3) Major depressive disorder, recurrent episode (4) Impulse control disorder (5) Psychotic depression JAZMINE KILLIAN MD Jan 26, 2018 20:38
[2018-01-26] MEDS: ATORVASTATIN CALCIUM 20 MG TABLET PO SCH (21:43)
--- NOTE | 2018-01-26 22:48 | PN ---
DATE: 01/25/2018 This is a late entry for 01/25/2018 covers elements not covered in my initial note of 01/25/2018. SUBJECTIVE: I have been asked to follow the patient in consultation while she is in ICU, transferred there per Dr. Maya/Dr. Atkins for her exacerbation of COPD and cellulitis. Overall, from a psychiatric standpoint, the patient is doing reasonably well. She appears depressed, irritable at times, but no suicidal ideation and no threats are noted. REVIEW OF SYSTEMS: Ambulation impaired. No CV, , eye system symptoms on review. MENTAL STATUS EXAM: She has shortness of breath, on O2 supplements by nasal cannula. Mood and affect remain somewhat anxious, dysphoric, but improved. LABORATORY DATA: Reviewed. IMPRESSION: Major depressive disorder, recurrent; anxiety disorder, unspecified. PLAN: No change from initial note. MAN Otis KILLIAN MD DR: LYDIA/janeth JOB#: [id number] / [id number]
[2018-01-27 05:18] VITALS: BP 138/75
[2018-01-27] MEDS: IPRATRPIUM/ALBUTEROL 0.5/2.5MG 3 ML NEBU. NEB SCH ×2 (05:30→10:10)
[2018-01-27 05:38] LABS: BASO # 0.1 x10^3/uL (0.0-0.2); BASO % 1 % (0-3); EOS % 0 % (0-3); HEMATOCRIT 42.2 % (36.0-47.0); HEMOGLOBIN 13.7 g/dL (12.0-15.5); LYMPH % 9 % (24-48); MEAN CORPUSCULAR HEMOGLOBIN 30 pg (25-35); MEAN CORPUSCULAR HGB CONC 33 g/dL (31-37); MEAN CORPUSCULAR VOLUME 91 fL (79-100); MONO # 0.2 x10^3/uL (0.0-1.1); MONO % 2 % (0-9); NEUT # 10.4 x10^3uL (1.8-7.7); NEUT % 89 % (31-73); PLATELET COUNT 165 x10^3/uL (140-400); RED BLOOD COUNT 4.65 x10^6/uL (3.50-5.40); RED CELL DISTRIBUTION WIDTH 18.1 % (11.5-14.5); WHITE BLOOD COUNT 11.6 x10^3/uL (4.0-11.0)
[2018-01-27 05:53] LABS: ALBUMIN 2.6 g/dL (3.4-5.0); ALBUMIN/GLOBULIN RATIO 0.6 (1.0-1.7); CALCIUM 8.8 mg/dL (8.5-10.1); CREATININE 1.9 mg/dL (0.6-1.0); POTASSIUM 3.9 mmol/L (3.5-5.1); TOTAL BILIRUBIN 0.2 mg/dL (0.2-1.0); TOTAL PROTEIN 7.1 g/dL (6.4-8.2)
[2018-01-27] MEDS: LEVOTHYROXINE 100 MCG TABLET PO SCH (06:21)
[2018-01-27] MEDS: CHOLECALCIFEROL (VITAMIN D3) 1,000 UNIT TABLET PO SCH (08:26)
[2018-01-27] MEDS: POTASSIUM CHLORIDE 20 MEQ TABLET.ER. PO SCH (08:26)
[2018-01-27] MEDS: LACTOBACILLUS RHAMNOSUS GG 1 CAPSULE. PO SCH (08:26)
[2018-01-27] MEDS: METOPROLOL SUCC 24HR ER 25 MG TAB.ER.24H. PO SCH (08:26)
[2018-01-27] MEDS: NICOTINE 21MG PATCH. TD SCH (08:27)
[2018-01-27] MEDS: SERTRALINE 25 MG TABLET. PO SCH (08:27)
[2018-01-27] MEDS: methylPREDNISolone SOD SUCC PF 125 MG/2 ML VIAL. IV SCH (08:27)
[2018-01-27] MEDS: INSULIN GLARGINE 300 UNITS/3 ML INSULN.PEN. SQ SCH (08:39)
[2018-01-27] MEDS: INSULIN LISPRO 300 UNITS/3 ML INSULN.PEN. SQ SCH ×3 (08:39→14:29)
[2018-01-27] MEDS: NYSTATIN TOPICAL POWDER 15GM BOTTLE. TP SCH (08:51)
[2018-01-27] MEDS ORDERED: POLYVINYL ALCOHOL 1.4% OPHTH SOLUTION 15ML BOTTLE. OU SCH (09:00)
[2018-01-27 10:33] VITALS: BP 126/76
--- NOTE | 2018-01-27 11:25 | PDOC ---
PROGRESS NOTES Assessment 1. Acute on chronic diastolic heart failure - Good diuresis over night. Cr remains stable. Lungs with fewer crackles this am. Continues to have trouble clearing upper airway secretions with cough. Stop lasix drip and metalazone and change back to home diuretics. Encouraged dietary compliance with low sodium. 2. dyspnea - continued dyspnea with minimal activity and continued cough. maintaining SpO2 with low flow oxygen. 3. hypotension - pressure stable with decreased doses of metoprolol and cardizem. 4. atrial fibrillation, permanent with slow ventricular response and frequent 2 second R-R intervals. improved with decreased doses of BB and CCB. on Warfarin for stroke prophylaxis. 5. UTI / recent cellulitis- mgmt per IM 6. CKD - Cr stable at 1.9 today. 7. chronic venous stasis - She reports she has been referred to lymphedema clinic at [facility] but has not yet gone. DC plan per PCP, follow up outpatient with primary sample preparation supervisor in 2 weeks. Subjective continues to cough and reports inability to clear sputum. continues to have dyspnea with conversation and says she has been afraid to try and sleep in the bed due to her prior orthopnea. She feels better overall however. she reports having trouble with her knee and has only been up in the room with PT but says she is going to try out crutches today. She would like to go home soon. Objective tele atrial fibrillation with average rate in the 70s, 2 sec r-r intervals have reduced in frequency. Vital Signs Date Time Temp Pulse Resp B/P (MAP) Pulse Ox O2 Delivery O2 Flow Rate FiO2 01/27/18 10:33 80 18 126/76 (93) 96 Nasal Cannula 2.0 01/27/18 05:18 98.7 Intake and Output 01/27/18 07:00 Intake Total 1655.63 ml Output Total 2175 ml Balance -519.37 ml Intake Oral 1600 ml IV Total 55.63 ml Output Urine Total 2175 ml Abdomen: Normal bowel sounds, Soft, No tenderness Heart: Normal S1, Normal S2, Other (no gallops clicks or rubs) Extremities: Other (chronic venous stasis changes with unchanged edema.) General: Alert, Oriented X3, Cooperative, Other (mild intermittent distress) Lungs: Other (bilateral crackles, midlung clears with cough, basilar crackles are few bilaterally and improved from yesterday. continued upper airway rhonchi ) Neuro: Normal speech Psych/Mental Status: Mental status NL, Mood NL Review of Relevant I have reviewed the following items jesús (where applicable) has been applied. Labs Laboratory Tests Test 01/25/18 12:18 01/25/18 17:13 01/25/18 22:51 01/26/18 05:48 Glucose (Fingerstick) 290 mg/dL (70-99) 158 mg/dL (70-99) 218 mg/dL (70-99) White Blood Count 13.2 x10^3/uL (4.0-11.0) Red Blood Count 4.59 x10^6/uL (3.50-5.40) Hemoglobin 13.6 g/dL (12.0-15.5) Hematocrit 41.7 % (36.0-47.0) Mean Corpuscular Volume 91 fL (79-100) Mean Corpuscular Hemoglobin 30 pg (25-35) Mean Corpuscular Hemoglobin Concent 33 g/dL (31-37) Red Cell Distribution Width 18.2 % (11.5-14.5) Platelet Count 177 x10^3/uL (140-400) Neutrophils (%) (Auto) 91 % (31-73) Lymphocytes (%) (Auto) 8 % (24-48) Monocytes (%) (Auto) 2 % (0-9) Eosinophils (%) (Auto) 0 % (0-3) Basophils (%) (Auto) 0 % (0-3) Neutrophils # (Auto) 11.9 x10^3uL (1.8-7.7) Lymphocytes # (Auto) 1.0 x10^3/uL (1.0-4.8) Monocytes # (Auto) 0.2 x10^3/uL (0.0-1.1) Eosinophils # (Auto) 0.0 x10^3/uL (0.0-0.7) Basophils # (Auto) 0.0 x10^3/uL (0.0-0.2) Sodium Level 135 mmol/L (136-145) Potassium Level 4.1 mmol/L (3.5-5.1) Chloride Level 100 mmol/L (98-107) Carbon Dioxide Level 29 mmol/L (21-32) Anion Gap 6 (6-14) Blood Urea Nitrogen 39 mg/dL (7-20) Creatinine 1.9 mg/dL (0.6-1.0) Estimated GFR (Cockcroft-Gault) 26.0 Glucose Level 216 mg/dL (70-99) Calcium Level 8.8 mg/dL (8.5-10.1) Magnesium Level 1.9 mg/dL (1.8-2.4) Test 01/26/18 07:20 01/26/18 13:21 01/26/18 17:00 01/26/18 22:48 Prothrombin Time 23.5 SEC (9.4-11.4) Prothromb Time International Ratio 2.5 (0.9-1.1) Glucose (Fingerstick) 315 mg/dL (70-99) 287 mg/dL (70-99) 230 mg/dL (70-99) Test 01/27/18 05:30 White Blood Count 11.6 x10^3/uL (4.0-11.0) Red Blood Count 4.65 x10^6/uL (3.50-5.40) Hemoglobin 13.7 g/dL (12.0-15.5) Hematocrit 42.2 % (36.0-47.0) Mean Corpuscular Volume 91 fL (79-100) Mean Corpuscular Hemoglobin 30 pg (25-35) Mean Corpuscular Hemoglobin Concent 33 g/dL (31-37) Red Cell Distribution Width 18.1 % (11.5-14.5) Platelet Count 165 x10^3/uL (140-400) Neutrophils (%) (Auto) 89 % (31-73) Lymphocytes (%) (Auto) 9 % (24-48) Monocytes (%) (Auto) 2 % (0-9) Eosinophils (%) (Auto) 0 % (0-3) Basophils (%) (Auto) 1 % (0-3) Neutrophils # (Auto) 10.4 x10^3uL (1.8-7.7) Lymphocytes # (Auto) 1.0 x10^3/uL (1.0-4.8) Monocytes # (Auto) 0.2 x10^3/uL (0.0-1.1) Eosinophils # (Auto) 0.0 x10^3/uL (0.0-0.7) Basophils # (Auto) 0.1 x10^3/uL (0.0-0.2) Prothrombin Time 32.4 SEC (9.4-11.4) Prothromb Time International Ratio 3.4 (0.9-1.1) Sodium Level 133 mmol/L (136-145) Potassium Level 3.9 mmol/L (3.5-5.1) Chloride Level 97 mmol/L (98-107) Carbon Dioxide Level 31 mmol/L (21-32) Anion Gap 5 (6-14) Blood Urea Nitrogen 51 mg/dL (7-20) Creatinine 1.9 mg/dL (0.6-1.0) Estimated GFR (Cockcroft-Gault) 26.0 BUN/Creatinine Ratio 27 (6-20) Glucose Level 243 mg/dL (70-99) Calcium Level 8.8 mg/dL (8.5-10.1) Total Bilirubin 0.2 mg/dL (0.2-1.0) Aspartate Amino Transf (AST/SGOT) 14 U/L (15-37) Alanine Aminotransferase (ALT/SGPT) 23 U/L (14-59) Alkaline Phosphatase 53 U/L (46-116) Total Protein 7.1 g/dL (6.4-8.2) Albumin 2.6 g/dL (3.4-5.0) Albumin/Globulin Ratio 0.6 (1.0-1.7) Medications Current Medications Acetaminophen (Tylenol) 650 mg PRN Q6HRS PRN PO PAIN / TEMP; Start 01/24/18 at 06:15; Stop 01/24/18 at 07:21; Status DC Vitamin D (Vitamin D3) 2,000 unit BID PO Last administered on 01/27/18at 08:26; Start 01/24/18 at 09:00 Diltiazem HCl (Cardizem 24hr Cd) 240 mg DAILY PO Last administered on at 08:55; Start 01/24/18 at 09:00; Stop 01/26/18 at 11:38; Status DC Insulin Glargine (Lantus) 23 units DAILY SQ Last administered on 01/27/18at 08: 39; Start 01/24/18 at 09:00 Insulin Human Lispro (HumaLOG) 3 units TIDAC SQ ; Start 01/24/18 at 07:30; Stop 01/24/18 at 16:27; Status DC Levothyroxine Sodium (Synthroid) 100 mcg DAILY06 PO Last administered on at 06:21; Start 01/25/18 at 06:00 Multi-Ingredient Ointment (Analgesic [place]) 1 manjeet PRN QID PRN TP MUSCLE PAIN; Start 01/24/18 at 06:15 Nystatin (Nystop) 1 manjeet TID TP Last administered on 01/25/18at 17:16; Start at 09:00 Potassium Chloride (Klor-Con) 20 meq DAILY PO Last administered on 01/27/18at 08 :26; Start 01/24/18 at 09:00 Simvastatin (Zocor) 20 mg HS PO ; Start 01/24/18 at 21:00; Stop 01/24/18 at 21: 00; Status DC Acetaminophen (Tylenol) 500 mg PRN Q8HRS PRN PO PAIN / TEMP; Start 01/24/18 at 07:30; Stop 01/24/18 at 07:30; Status DC Artificial Tears (Artificial Tears) 1 drop BID OU ; Start 01/24/18 at 09:00; Status Cancel Enoxaparin Sodium (Lovenox 120mg Syringe) 110 mg BID SQ Last administered on at 21:20; Start 01/24/18 at 09:00; Stop 01/26/18 at 08:54; Status DC Lactobacillus Rhamnosus (Culturelle) 1 cap BID PO Last administered on at 08:26; Start 01/24/18 at 09:00 Levofloxacin (Levaquin) 750 mg QODAY PO Last administered on 01/26/18at 08:55; Start 01/24/18 at 09:00 Al Hydroxide/Mg Hydroxide (Mylanta Plus Xs) 15 ml PRN AFTMEALHC PRN PO DYSPEPSIA; Start 01/24/18 at 06:15 Magnesium Hydroxide (Milk Of Magnesia) 2,400 mg PRN Q8HRS PRN PO CONSTIPATION; Start 01/24/18 at 06:15 Metoprolol Succinate (Toprol Xl) 50 mg DAILY PO Last administered on 01/25/18at 08:10; Start 01/24/18 at 09:00; Stop 01/25/18 at 23:44; Status DC Nicotine (Nicoderm Cq 21mg) 1 patch DAILY TD Last administered on 01/27/18at 08: 27; Start 01/24/18 at 09:00 Quetiapine Fumarate (SEROquel) 25 mg PRN TID PRN PO AGITATION; Start 01/24/18 at 06:15 Sertraline HCl (Zoloft) 25 mg DAILY PO Last administered on 01/27/18at 08:27; Start 01/24/18 at 09:00 Spironolactone (Aldactone) 25 mg DAILY PO Last administered on 01/25/18at 08:09 ; Start 01/24/18 at 09:00; Stop 01/25/18 at 23:44; Status DC Torsemide (Demadex) 50 mg DAILY PO ; Start 01/24/18 at 09:00; Stop 01/25/18 at 23:44; Status DC Acetaminophen (Tylenol) 1,000 mg PRN Q8HRS PRN PO PAIN / TEMP Last administered on 01/26/18at 19:25; Start 01/24/18 at 07:30 Methylprednisolone Sodium Succinate (SOLU-Medrol 125MG VIAL) 125 mg Q8HRS IV Last administered on 01/26/18at 05:28; Start 01/24/18 at 08:00; Stop 01/26/18 at 15:27; Status DC Albuterol/ Ipratropium (Duoneb) 3 ml RTQID NEB Last administered on 01/27/18at 10:10; Start 01/24/18 at 08:00 Albuterol Sulfate (Ventolin) 2.5 mg PRN Q2HR PRN NEB SHORTNESS OF BREATH; Start 01/24/18 at 08:00 Artificial Tears (Refresh Classic) 1 drop BID OU Last administered on at 19:38; Start 01/24/18 at 09:00; Stop 01/26/18 at 22:14; Status DC Albumin Human 50 ml @ 50 mls/hr 1X ONCE IV Last administered on 01/24/18at 12: 18; Start 01/24/18 at 12:00; Stop 01/24/18 at 12:59; Status DC Furosemide 100 mg/ Sodium Chloride 100 ml @ 0 mls/hr CONT PRN IV PER PROTOCOL Last administered on 01/25/18at 23:51; Start 01/24/18 at 12:00 Magnesium Sulfate 50 ml @ 25 mls/hr 1X ONCE IV ; Start 01/24/18 at 11:45; Stop 01/24/18 at 13:44; Status UNV Atorvastatin Calcium (Lipitor) 40 mg QHS PO Last administered on 01/26/18at 21: 43; Start 01/24/18 at 21:00 Warfarin Sodium (Coumadin Per Pharmacy) 1 each PRN DAILY PRN MC SEE COMMENTS Last administered on 01/26/18at 08:51; Start 01/24/18 at 11:45 Magnesium Sulfate 100 ml @ 100 mls/hr Q1H IV Last administered on 01/24/18at 13 :18; Start 01/24/18 at 12:00; Stop 01/24/18 at 14:00; Status DC Warfarin Sodium (Coumadin) 5 mg 1X WARF ONCE PO Last administered on at 16:11; Start 01/24/18 at 16:00; Stop 01/24/18 at 16:01; Status DC Insulin Human Lispro (HumaLOG) 0-9 UNITS TIDWMEALS SQ Last administered on 01/27at 08:39; Start 01/24/18 at 17:00 Dextrose 12.5 gm PRN Q15MIN PRN IV SEE COMMENTS; Start 01/24/18 at 16:30 Albumin Human 50 ml @ 50 mls/hr 1X ONCE IV Last administered on 01/25/18at 12: 35; Start 01/25/18 at 11:00; Stop 01/25/18 at 11:59; Status DC Warfarin Sodium (Coumadin) 5 mg 1X WARF ONCE PO Last administered on at 17:16; Start 01/25/18 at 16:00; Stop 01/25/18 at 16:01; Status DC Metoprolol Succinate (Toprol Xl) 25 mg DAILY PO Last administered on 01/27/18at 08:26; Start 01/26/18 at 09:00 Warfarin Sodium (Coumadin) 2 mg 1X WARF ONCE PO Last administered on at 17:31; Start 01/26/18 at 16:00; Stop 01/26/18 at 16:01; Status DC Diltiazem HCl (Cardizem 24hr Cd) 120 mg DAILY PO Last administered on at 08:26; Start 01/27/18 at 09:00 Metolazone (Zaroxolyn) 2.5 mg DAILY PO Last administered on 01/26/18at 13:35; Start 01/26/18 at 11:45 Methylprednisolone Sodium Succinate (SOLU-Medrol 125MG VIAL) 125 mg Q12HR IV Last administered on 01/27/18at 08:27; Start 01/26/18 at 21:00 Artificial Tears (Artificial Tears) 1 drop BID OU Last administered on at 08:27; Start 01/27/18 at 09:00 Warfarin Sodium (Coumadin - No Dose Today) 1 each 1X WARF ONCE MC ; Start 01/27 at 16:00; Stop 01/27/18 at 16:01 Active Scripts Active Reported Zoloft (Sertraline Hcl) 25 Mg Tablet 25 Mg PO DAILY NICODERM CQ 21mg (Nicotine) 1 Each Patch.td24 1 Patch TD DAILY Analgesic [place] (Methyl Salicylate/Menthol) 28 Gm Oint...g. 1 Manjeet TP PRN QID PRN Milk Of Magnesia (Magnesium Hydroxide) 2,400 Mg/10 Ml Oral.susp 2,400 Mg PO PRN Q8HRS PRN Advanced Antacid Liquid (Mag Hydrox/Al Hydrox/Simeth) 355 Ml Oral.susp 15 Ml PO PRN AFTMEALHC PRN Tylenol (Acetaminophen) 325 Mg Tablet 650 Mg PO PRN Q6HRS PRN Levaquin (Levofloxacin) 750 Mg Tablet 750 Mg PO EVERY 48 HOURS 4 Days Lovenox (Enoxaparin Sodium) 120 Mg/0.8 Ml Disp.syrin 120 Mg SQ DAILY Culturelle (Lactobacillus Rhamnosus Gg) 1 Each Capsule 1 Each PO BID Coumadin (Warfarin Sodium) 2.5 Mg Tablet 5 Mg PO DAILY16 Vitamin D3 (Cholecalciferol (Vitamin D3)) 1,000 Unit Tablet 2,000 Unit PO BID Torsemide 100 Mg Tablet 50 Mg PO DAILY Spironolactone 25 Mg Tablet 25 Mg PO DAILY Simvastatin 40 Mg Tablet 20 Mg PO HS Seroquel (Quetiapine Fumarate) 25 Mg Tablet 25 Mg PO PRN TID PRN Klor-Con M20 (Potassium Chloride) 20 Meq Tab.er.prt 20 Meq PO DAILY Nystatin 15 Gm Powder 1 Manjeet TP TID APPLY UNDER EACH BREAST Toprol Xl (Metoprolol Succinate) 50 Mg Tab.er.24h 50 Mg PO DAILY Levothyroxine Sodium 100 Mcg Tablet 100 Mcg PO DAILY06 Lantus Solostar (Insulin Glargine,Hum.rec.anlog) 100 Unit/1 Ml Insuln.pen 23 Unit SQ DAILY Humalog (Insulin Lispro) 100 Unit/1 Ml Insuln.pen 3 Unit SQ TIDAC Cardizem Cd (Diltiazem Hcl) 240 Mg Cap.er.24h 240 Mg PO DAILY Artificial Tears Eye Drops (Dextran 70/Hypromellose) 15 Ml Drops 1 Drop EACHEYE BID Acetaminophen 500 Mg Tablet 1,000 Mg PO PRN Q8HRS PRN Vitals/I & O Vital Sign - Last 24 Hours 01/26/18 01/26/18 01/26/18 01/26/18 12:40 13:46 16:32 16:54 Pulse 90 Resp 19 B/P (MAP) 133/82 (99) Pulse Ox 98 98 O2 Delivery Nasal Cannula Nasal Cannula Nasal Cannula Nasal Cannula O2 Flow Rate 2.0 2.0 2.0 2.0 01/26/18 01/26/18 01/26/18 01/26/18 17:55 19:00 20:00 20:31 Temp 98.9 Pulse 90 84 Resp 18 14 B/P (MAP) 132/64 (86) 154/77 (102) Pulse Ox 98 98 98 O2 Delivery Nasal Cannula Nasal Cannula Nasal Cannula Nasal Cannula O2 Flow Rate 2.0 2.0 2.0 2.0 01/26/18 01/26/18 01/27/18 01/27/18 23:00 23:05 05:10 05:18 Temp 98.6 98.7 Pulse 63 63 Resp 13 22 B/P (MAP) 137/73 (94) 138/75 (96) Pulse Ox 95 98 O2 Delivery Nasal Cannula Nasal Cannula Nasal Cannula Nasal Cannula O2 Flow Rate 2.0 2.0 2.0 2.0 01/27/18 01/27/18 01/27/18 01/27/18 05:31 08:00 08:26 08:26 Pulse 79 63 B/P (MAP) 138/75 138/75 Pulse Ox 97 O2 Delivery Nasal Cannula Nasal Cannula O2 Flow Rate 2.0 2.0 01/27/18 01/27/18 10:11 10:33 Pulse 80 Resp 18 B/P (MAP) 126/76 (93) Pulse Ox 98 96 O2 Delivery Nasal Cannula Nasal Cannula O2 Flow Rate 2.0 2.0 Intake and Output 01/26/18 01/26/18 01/27/18 15:00 23:00 07:00 Intake Total 900 ml 450 ml 305.63 ml Output Total 1375 ml 800 ml Balance 900 ml -925 ml -494.37 ml NICOLE RANKIN [employer] Jan 27, 2018 11:25
[2018-01-27] MEDS ORDERED: IPRA3AMP29 NEB (12:48)
[2018-01-27] MEDS ORDERED: PRED20TA PO (12:48)
[2018-01-27] MEDS ORDERED: ALBU2.5V5 NEB (12:48)
--- NOTE | 2018-01-27 12:49 | PDOC3 ---
Discharge Summary Visit Information Date of Admission: Jan 24, 2018 Date of Discharge: Jan 27, 2018 Admitting Diagnosis: congestive heart failure, altered mental status, respira Final Diagnosis See problem list below Problems: (1) Acute on chronic congestive heart failure (2) Acute kidney injury superimposed on chronic kidney disease (3) Hypotension (4) Severe malnutrition (5) Acute on chronic diastolic heart failure (6) Warfarin anticoagulation (7) Atrial fibrillation (8) Anxiety disorder (9) Major depressive disorder, recurrent episode (10) Impulse control disorder (11) Altered mental status (12) Respiratory distress (13) Cellulitis (14) Anxiety (15) Urinary tract infection Brief Hospital Course Allergies Allergies Coded Allergies Type Severity Reaction Last Updated Verified Sulfa (Sulfonamide Antibiotics) Allergy Intermediate 01/21/18 Yes amoxicillin Allergy Intermediate 01/21/18 Yes vancomycin Allergy Intermediate 01/21/18 Yes Vital Signs Vital Signs Date Time Temp Pulse Resp B/P (MAP) Pulse Ox O2 Delivery O2 Flow Rate FiO2 01/27/18 12:11 Nasal Cannula 2.0 01/27/18 10:33 80 18 126/76 (93) 96 01/27/18 05:18 98.7 Lab Results Laboratory Tests Test 01/25/18 17:13 01/25/18 22:51 01/26/18 05:48 01/26/18 07:20 Glucose (Fingerstick) 158 mg/dL (70-99) 218 mg/dL (70-99) White Blood Count 13.2 x10^3/uL (4.0-11.0) Red Blood Count 4.59 x10^6/uL (3.50-5.40) Hemoglobin 13.6 g/dL (12.0-15.5) Hematocrit 41.7 % (36.0-47.0) Mean Corpuscular Volume 91 fL (79-100) Mean Corpuscular Hemoglobin 30 pg (25-35) Mean Corpuscular Hemoglobin Concent 33 g/dL (31-37) Red Cell Distribution Width 18.2 % (11.5-14.5) Platelet Count 177 x10^3/uL (140-400) Neutrophils (%) (Auto) 91 % (31-73) Lymphocytes (%) (Auto) 8 % (24-48) Monocytes (%) (Auto) 2 % (0-9) Eosinophils (%) (Auto) 0 % (0-3) Basophils (%) (Auto) 0 % (0-3) Neutrophils # (Auto) 11.9 x10^3uL (1.8-7.7) Lymphocytes # (Auto) 1.0 x10^3/uL (1.0-4.8) Monocytes # (Auto) 0.2 x10^3/uL (0.0-1.1) Eosinophils # (Auto) 0.0 x10^3/uL (0.0-0.7) Basophils # (Auto) 0.0 x10^3/uL (0.0-0.2) Sodium Level 135 mmol/L (136-145) Potassium Level 4.1 mmol/L (3.5-5.1) Chloride Level 100 mmol/L (98-107) Carbon Dioxide Level 29 mmol/L (21-32) Anion Gap 6 (6-14) Blood Urea Nitrogen 39 mg/dL (7-20) Creatinine 1.9 mg/dL (0.6-1.0) Estimated GFR (Cockcroft-Gault) 26.0 Glucose Level 216 mg/dL (70-99) Calcium Level 8.8 mg/dL (8.5-10.1) Magnesium Level 1.9 mg/dL (1.8-2.4) Prothrombin Time 23.5 SEC (9.4-11.4) Prothromb Time International Ratio 2.5 (0.9-1.1) Test 01/26/18 13:21 01/26/18 17:00 01/26/18 22:48 01/27/18 05:30 Glucose (Fingerstick) 315 mg/dL (70-99) 287 mg/dL (70-99) 230 mg/dL (70-99) White Blood Count 11.6 x10^3/uL (4.0-11.0) Red Blood Count 4.65 x10^6/uL (3.50-5.40) Hemoglobin 13.7 g/dL (12.0-15.5) Hematocrit 42.2 % (36.0-47.0) Mean Corpuscular Volume 91 fL (79-100) Mean Corpuscular Hemoglobin 30 pg (25-35) Mean Corpuscular Hemoglobin Concent 33 g/dL (31-37) Red Cell Distribution Width 18.1 % (11.5-14.5) Platelet Count 165 x10^3/uL (140-400) Neutrophils (%) (Auto) 89 % (31-73) Lymphocytes (%) (Auto) 9 % (24-48) Monocytes (%) (Auto) 2 % (0-9) Eosinophils (%) (Auto) 0 % (0-3) Basophils (%) (Auto) 1 % (0-3) Neutrophils # (Auto) 10.4 x10^3uL (1.8-7.7) Lymphocytes # (Auto) 1.0 x10^3/uL (1.0-4.8) Monocytes # (Auto) 0.2 x10^3/uL (0.0-1.1) Eosinophils # (Auto) 0.0 x10^3/uL (0.0-0.7) Basophils # (Auto) 0.1 x10^3/uL (0.0-0.2) Prothrombin Time 32.4 SEC (9.4-11.4) Prothromb Time International Ratio 3.4 (0.9-1.1) Sodium Level 133 mmol/L (136-145) Potassium Level 3.9 mmol/L (3.5-5.1) Chloride Level 97 mmol/L (98-107) Carbon Dioxide Level 31 mmol/L (21-32) Anion Gap 5 (6-14) Blood Urea Nitrogen 51 mg/dL (7-20) Creatinine 1.9 mg/dL (0.6-1.0) Estimated GFR (Cockcroft-Gault) 26.0 BUN/Creatinine Ratio 27 (6-20) Glucose Level 243 mg/dL (70-99) Calcium Level 8.8 mg/dL (8.5-10.1) Total Bilirubin 0.2 mg/dL (0.2-1.0) Aspartate Amino Transf (AST/SGOT) 14 U/L (15-37) Alanine Aminotransferase (ALT/SGPT) 23 U/L (14-59) Alkaline Phosphatase 53 U/L (46-116) Total Protein 7.1 g/dL (6.4-8.2) Albumin 2.6 g/dL (3.4-5.0) Albumin/Globulin Ratio 0.6 (1.0-1.7) Test 01/27/18 12:08 Glucose (Fingerstick) 356 mg/dL (70-99) Brief Hospital Course Ms Sotelo is a 72-year-old female normally residing at [facility] who was initially admitted with aggression, confusion, severe mood swings for [place] [facility]. She was diagnosed with a UTI and admitted to the medical floor treated with levaquin. After stabilization she was transferred to [facility]. She was observed by staff to be very dyspneic and was found to have symptoms consistent with CHF exacerbation. She was intermittently confused and delusional believing at times she had been taken hostage. Cardiology was consulted and the patient placed on Lasix drip with albumin yesterday metolazone. She has continued to improve and today changed over to torsemide and spironolactone. Her breathing has normalized to what appears to be her baseline and her leg swelling significantly improved as well. She currently denies chest pain, reports her breathing is improved and denies palpitations or congestive symptoms. She is alert and oriented today and has been requesting to leave for several days now. Discharge Information Condition at Discharge: Stable Follow Up: Weeks (3-5 days) Disposition/Orders: D/C to Another Facility ([facility]) Dischare Medications Current Medications Acetaminophen (Tylenol) 650 mg PRN Q6HRS PRN PO PAIN / TEMP; Start 01/24/18 at 06:15; Stop 01/24/18 at 07:21; Status DC Vitamin D (Vitamin D3) 2,000 unit BID PO Last administered on 01/27/18at 08:26; Start 01/24/18 at 09:00 Diltiazem HCl (Cardizem 24hr Cd) 240 mg DAILY PO Last administered on at 08:55; Start 01/24/18 at 09:00; Stop 01/26/18 at 11:38; Status DC Insulin Glargine (Lantus) 23 units DAILY SQ Last administered on 01/27/18at 08: 39; Start 01/24/18 at 09:00 Insulin Human Lispro (HumaLOG) 3 units TIDAC SQ ; Start 01/24/18 at 07:30; Stop 01/24/18 at 16:27; Status DC Levothyroxine Sodium (Synthroid) 100 mcg DAILY06 PO Last administered on at 06:21; Start 01/25/18 at 06:00 Multi-Ingredient Ointment (Analgesic Steuben) 1 manjeet PRN QID PRN TP MUSCLE PAIN; Start 01/24/18 at 06:15 Nystatin (Nystop) 1 manjeet TID TP Last administered on 01/25/18at 17:16; Start at 09:00 Potassium Chloride (Klor-Con) 20 meq DAILY PO Last administered on 01/27/18at 08 :26; Start 01/24/18 at 09:00 Simvastatin (Zocor) 20 mg HS PO ; Start 01/24/18 at 21:00; Stop 01/24/18 at 21: 00; Status DC Acetaminophen (Tylenol) 500 mg PRN Q8HRS PRN PO PAIN / TEMP; Start 01/24/18 at 07:30; Stop 01/24/18 at 07:30; Status DC Artificial Tears (Artificial Tears) 1 drop BID OU ; Start 01/24/18 at 09:00; Status Cancel Enoxaparin Sodium (Lovenox 120mg Syringe) 110 mg BID SQ Last administered on at 21:20; Start 01/24/18 at 09:00; Stop 01/26/18 at 08:54; Status DC Lactobacillus Rhamnosus (Culturelle) 1 cap BID PO Last administered on at 08:26; Start 01/24/18 at 09:00 Levofloxacin (Levaquin) 750 mg QODAY PO Last administered on 01/26/18at 08:55; Start 01/24/18 at 09:00 Al Hydroxide/Mg Hydroxide (Mylanta Plus Xs) 15 ml PRN AFTMEALHC PRN PO DYSPEPSIA; Start 01/24/18 at 06:15 Magnesium Hydroxide (Milk Of Magnesia) 2,400 mg PRN Q8HRS PRN PO CONSTIPATION; Start 01/24/18 at 06:15 Metoprolol Succinate (Toprol Xl) 50 mg DAILY PO Last administered on 01/25/18at 08:10; Start 01/24/18 at 09:00; Stop 01/25/18 at 23:44; Status DC Nicotine (Nicoderm Cq 21mg) 1 patch DAILY TD Last administered on 01/27/18at 08: 27; Start 01/24/18 at 09:00 Quetiapine Fumarate (SEROquel) 25 mg PRN TID PRN PO AGITATION; Start 01/24/18 at 06:15 Sertraline HCl (Zoloft) 25 mg DAILY PO Last administered on 01/27/18at 08:27; Start 01/24/18 at 09:00 Spironolactone (Aldactone) 25 mg DAILY PO Last administered on 01/25/18at 08:09 ; Start 01/24/18 at 09:00; Stop 01/25/18 at 23:44; Status DC Torsemide (Demadex) 50 mg DAILY PO ; Start 01/24/18 at 09:00; Stop 01/25/18 at 23:44; Status DC Acetaminophen (Tylenol) 1,000 mg PRN Q8HRS PRN PO PAIN / TEMP Last administered on 01/26/18at 19:25; Start 01/24/18 at 07:30 Methylprednisolone Sodium Succinate (SOLU-Medrol 125MG VIAL) 125 mg Q8HRS IV Last administered on 01/26/18at 05:28; Start 01/24/18 at 08:00; Stop 01/26/18 at 15:27; Status DC Albuterol/ Ipratropium (Duoneb) 3 ml RTQID NEB Last administered on 01/27/18at 10:10; Start 01/24/18 at 08:00 Albuterol Sulfate (Ventolin) 2.5 mg PRN Q2HR PRN NEB SHORTNESS OF BREATH; Start 01/24/18 at 08:00 Artificial Tears (Refresh Classic) 1 drop BID OU Last administered on at 19:38; Start 01/24/18 at 09:00; Stop 01/26/18 at 22:14; Status DC Albumin Human 50 ml @ 50 mls/hr 1X ONCE IV Last administered on 01/24/18at 12: 18; Start 01/24/18 at 12:00; Stop 01/24/18 at 12:59; Status DC Furosemide 100 mg/ Sodium Chloride 100 ml @ 0 mls/hr CONT PRN IV PER PROTOCOL Last administered on 01/25/18at 23:51; Start 01/24/18 at 12:00; Stop 01/27/18 at 11:27; Status DC Magnesium Sulfate 50 ml @ 25 mls/hr 1X ONCE IV ; Start 01/24/18 at 11:45; Stop 01/24/18 at 13:44; Status UNV Atorvastatin Calcium (Lipitor) 40 mg QHS PO Last administered on 01/26/18at 21: 43; Start 01/24/18 at 21:00 Warfarin Sodium (Coumadin Per Pharmacy) 1 each PRN DAILY PRN MC SEE COMMENTS Last administered on 01/26/18at 08:51; Start 01/24/18 at 11:45 Magnesium Sulfate 100 ml @ 100 mls/hr Q1H IV Last administered on 01/24/18at 13 :18; Start 01/24/18 at 12:00; Stop 01/24/18 at 14:00; Status DC Warfarin Sodium (Coumadin) 5 mg 1X WARF ONCE PO Last administered on at 16:11; Start 01/24/18 at 16:00; Stop 01/24/18 at 16:01; Status DC Insulin Human Lispro (HumaLOG) 0-9 UNITS TIDWMEALS SQ Last administered on 01/27at 12:17; Start 01/24/18 at 17:00 Dextrose 12.5 gm PRN Q15MIN PRN IV SEE COMMENTS; Start 01/24/18 at 16:30 Albumin Human 50 ml @ 50 mls/hr 1X ONCE IV Last administered on 01/25/18at 12: 35; Start 01/25/18 at 11:00; Stop 01/25/18 at 11:59; Status DC Warfarin Sodium (Coumadin) 5 mg 1X WARF ONCE PO Last administered on at 17:16; Start 01/25/18 at 16:00; Stop 01/25/18 at 16:01; Status DC Metoprolol Succinate (Toprol Xl) 25 mg DAILY PO Last administered on 01/27/18at 08:26; Start 01/26/18 at 09:00 Warfarin Sodium (Coumadin) 2 mg 1X WARF ONCE PO Last administered on at 17:31; Start 01/26/18 at 16:00; Stop 01/26/18 at 16:01; Status DC Diltiazem HCl (Cardizem 24hr Cd) 120 mg DAILY PO Last administered on at 08:26; Start 01/27/18 at 09:00 Metolazone (Zaroxolyn) 2.5 mg DAILY PO Last administered on 01/26/18at 13:35; Start 01/26/18 at 11:45; Stop 01/27/18 at 11:27; Status DC Methylprednisolone Sodium Succinate (SOLU-Medrol 125MG VIAL) 125 mg Q12HR IV Last administered on 01/27/18at 08:27; Start 01/26/18 at 21:00 Artificial Tears (Artificial Tears) 1 drop BID OU Last administered on at 08:27; Start 01/27/18 at 09:00 Warfarin Sodium (Coumadin - No Dose Today) 1 each 1X WARF ONCE MC ; Start 01/27 at 16:00; Stop 01/27/18 at 16:01 Torsemide (Demadex) 50 mg DAILY PO ; Start 01/28/18 at 09:00 Spironolactone (Aldactone) 25 mg DAILY PO ; Start 01/28/18 at 09:00 Guaifenesin (Mucinex Er) 600 mg 1X ONCE PO Last administered on 01/27/18at 12: 12; Start 01/27/18 at 11:30; Stop 01/27/18 at 11:34; Status DC Active Scripts Active Prednisone 20 Mg Tablet 20 Mg PO BID 7 Days Albuterol Sulfate Neb Soln (Albuterol Sulfate) 2.5 Mg/3 Ml Vial.neb 2.5 Mg NEB PRN Q2HR PRN 10 Days Duoneb 0.5-3(2.5) Mg/3 Ml (Albuterol/Ipratropium) 3 Ml Ampul.neb 3 Ml NEB RTQID 7 Days Reported Zoloft (Sertraline Hcl) 25 Mg Tablet 25 Mg PO DAILY NICODERM CQ 21mg (Nicotine) 1 Each Patch.td24 1 Patch TD DAILY Analgesic Steuben (Methyl Salicylate/Menthol) 28 Gm Oint...g. 1 Manjeet TP PRN QID PRN Milk Of Magnesia (Magnesium Hydroxide) 2,400 Mg/10 Ml Oral.susp 2,400 Mg PO PRN Q8HRS PRN Advanced Antacid Liquid (Mag Hydrox/Al Hydrox/Simeth) 355 Ml Oral.susp 15 Ml PO PRN AFTMEALHC PRN Tylenol (Acetaminophen) 325 Mg Tablet 650 Mg PO PRN Q6HRS PRN Levaquin (Levofloxacin) 750 Mg Tablet 750 Mg PO EVERY 48 HOURS 4 Days Lovenox (Enoxaparin Sodium) 120 Mg/0.8 Ml Disp.syrin 120 Mg SQ DAILY Culturelle (Lactobacillus Rhamnosus Gg) 1 Each Capsule 1 Each PO BID Coumadin (Warfarin Sodium) 2.5 Mg Tablet 5 Mg PO DAILY16 Vitamin D3 (Cholecalciferol (Vitamin D3)) 1,000 Unit Tablet 2,000 Unit PO BID Torsemide 100 Mg Tablet 50 Mg PO DAILY Spironolactone 25 Mg Tablet 25 Mg PO DAILY Simvastatin 40 Mg Tablet 20 Mg PO HS Seroquel (Quetiapine Fumarate) 25 Mg Tablet 25 Mg PO PRN TID PRN Klor-Con M20 (Potassium Chloride) 20 Meq Tab.er.prt 20 Meq PO DAILY Nystatin 15 Gm Powder 1 Manjeet TP TID APPLY UNDER EACH BREAST Toprol Xl (Metoprolol Succinate) 50 Mg Tab.er.24h 50 Mg PO DAILY Levothyroxine Sodium 100 Mcg Tablet 100 Mcg PO DAILY06 Lantus Solostar (Insulin Glargine,Hum.rec.anlog) 100 Unit/1 Ml Insuln.pen 23 Unit SQ DAILY Humalog (Insulin Lispro) 100 Unit/1 Ml Insuln.pen 3 Unit SQ TIDAC Cardizem Cd (Diltiazem Hcl) 240 Mg Cap.er.24h 240 Mg PO DAILY Artificial Tears Eye Drops (Dextran 70/Hypromellose) 15 Ml Drops 1 Drop EACHEYE BID Acetaminophen 500 Mg Tablet 1,000 Mg PO PRN Q8HRS PRN Problem Qualifiers (1) Acute on chronic congestive heart failure: Heart failure type: diastolic Qualified Codes: I50.33 - Acute on chronic diastolic (congestive) heart failure (2) Hypotension: Hypotension type: hypotension due to hypovolemia Qualified Codes: I95.89 - Other hypotension; E86.1 - Hypovolemia (3) Atrial fibrillation: Atrial fibrillation type: chronic Qualified Codes: I48.2 - Chronic atrial fibrillation (4) Anxiety disorder: Anxiety disorder type: unspecified anxiety disorder Qualified Codes: F41.9 - Anxiety disorder, unspecified (5) Major depressive disorder, recurrent episode: Major depression episode severity: moderate Qualified Codes: F33.1 - Major depressive disorder, recurrent, moderate (6) Altered mental status: Altered mental status type: delirium Qualified Codes: R41.0 - Disorientation , unspecified (7) Cellulitis: Site of cellulitis of extremity: lower extremity Laterality: unspecified laterality (8) Urinary tract infection: Urinary tract infection type: acute cystitis Hematuria presence: without hematuria Qualified Codes: N30.00 - Acute cystitis without hematuria RAYMOND DAWKINS DO Jan 27, 2018 12:49
[2018-01-27] MEDS ORDERED: DILT240C2 PO (13:45)
--- NOTE | 2018-01-28 06:07 | PN ---
DATE: 01/26/2018 PSYCHIATRIC PROGRESS NOTE This late entry, 01/26/2018, covers elements not covered in my initial note. SUBJECTIVE: I met with the patient in the evening. Per nursing report, the patient is doing somewhat better. Her COPD seems to be improving and she is less irritable. REVIEW OF SYSTEMS: Still positive for shortness of breath, impaired ambulation. No CV, , GI system symptoms on review. MENTAL STATUS EXAM: Oriented to herself and situation. Speech is coherent, has some latency. Abstraction fair, computation somewhat impaired. She is a little irritable, but redirectable. No suicidal or homicidal ideation. IMPRESSION: Major depressive disorder, recurrent, in partial remission; anxiety disorder, unspecified. PLAN: No change from a psychiatric standpoint. Once she is medically stable, she may return to the retirement. MAN Otis KILLIAN MD DR: LYDIA/janeth JOB#: [id number] / [id number]
[2018-01-28] MEDS ORDERED: TORSEMIDE 20 MG TABLET. PO SCH (09:00)
[2018-01-28] MEDS ORDERED: SPIRONOLACTONE 25 MG TABLET PO SCH (09:00)
== END 2018-01-27 14:35 | disposition short-term general hospital (02) | DRG 682 ==
LOC: ICU 01:05
PROVIDERS: ADMIT Internal Medicine; ATTEND Internal Medicine
DX: N17.9 Acute kidney failure, unspecified (principal); I50.33 Acute on chronic diastolic (congestive) heart failure; E43 Unspecified severe protein-calorie malnutrition; I13.0 Hypertensive heart and chronic kidney disease with heart failure and stage 1 through stage 4 chronic kidney disease, or unspecified chronic kidney disease; J44.1 Chronic obstructive pulmonary disease with (acute) exacerbation; L03.90 Cellulitis, unspecified; Z68.41 Body mass index [BMI] 40.0-44.9, adult; N30.00 Acute cystitis without hematuria; I95.9 Hypotension, unspecified; E03.9 Hypothyroidism, unspecified; E11.22 Type 2 diabetes mellitus with diabetic chronic kidney disease; E83.42 Hypomagnesemia; E78.5 Hyperlipidemia, unspecified; F33.41 Major depressive disorder, recurrent, in partial remission; F63.9 Impulse disorder, unspecified; F41.9 Anxiety disorder, unspecified; I87.8 Other specified disorders of veins; I48.2 Chronic atrial fibrillation; N18.3 Chronic kidney disease, stage 3 (moderate); Z96.652 Presence of left artificial knee joint
CPT/HCPCS: 36415; 71045; 80048; 80053; 82947; 83735; 84484; 85025; 85610; 87324; 87641; 93005; 93306; 94640; J1650; J1815; J2930; J3475; J7620; P9046; 97110; 97530